=== PATIENT | female | born 1985 | race Caucasian/White ===

== ENCOUNTER 2019-09-10 16:29 | Inpatient (IN) | payer BC ==
[~2019-09-10] VITALS: Ht 154.9 cm; Wt 51.0 kg
--- OUTSIDE RECORDS SUMMARY | 2019-09-10 16:36 | XMS REPORT ---
Author Author Karina Valdes Doctor Organization [facility] Address Unknown Phone Unavailable Care Team Providers Care Slate Handler Name Role Phone Migration, Doctor Unavailable Unavailable PROBLEMS Type Condition ICD9-CM Code [id number] Code Onset Dates Condition S tatus SNOMED Code Problem Seasonal allergic rhinitis due to other allergic trigger J30.89 Active 701144798 Problem Anxiety F41.9 Active 69173400 Problem Well woman exam (no gynecological exam) Z00.00 Active 007567593 Problem Physical exam Z00.00 Active 790625 008 ALLERGIES No Information ENCOUNTERS Encounter Location Date Diagnosis [place] [address] [phone] 03 Jun, 2019 Tinea versicolor B36.0 [place] [address] [address] [place] [id number] [address] [place] [id number] 02 Jun, 2019 Encounter for surveillance o f contraceptive pills Z30.41 and Family planning Z30.09 [place] [address] [address] [place] [id number] [address] [place] [id number] May, [place] [address] [address] [place] [id number] [address] [place] [id number] Nov, Ganglion cyst of dorsum of r ight wrist M67.431 ; Tinea versicolor B36.0 ; Screening for diabetes mellitus Z13.1 ; Screening for lipoid disorders Z13.220 and Screening for thyroid disorder Z13.29 [place] [address] [address] [place] [id number] [place] [phone] Oct, Screening for thyroid disord er Z13.29 ; Screening for lipoid disorders Z13.220 ; Tinea versicolor B36.0 and Screening for diabetes mellitus Z13.1 [place] [address] [address] [place] [id number] [address] [place] [id number] Oct, Ganglion cyst of dorsum of r ight wrist M67.431 ; Tinea versicolor B36.0 ; Screening for diabetes mellitus Z13.1 ; Screening for lipoid disorders Z13.220 and Screening for thyroid disorder Z13.[address] [id number] [address] May, [place] [address] [address] [facility] [id number] [address] [place] [phone] May, Family planning Z30.09 and W ell woman exam with routine gynecological exam Z01.419 [facility] [address] [facility] [id number] [address] [place] [phone] May, [place] [address] [address] [facility] [id number] [address] [place] [phone] Apr, [facility] [address] [facility] [id number] [address] [place] [phone] Mar, Routine gynecological examin ation Z01.419 [facility] [address] [facility] [id number] [address] [place] [phone] Feb, [place] [address] [address] [facility] [id number] [address] [place] [phone] July, Wrist pain, left M25.532 and Anxiety F41.9 [facility] [address] [facility] [id number] [address] [place] [phone] Feb, Other viral agents as the ca use of diseases classified elsewhere B97.89 and Acute upper respiratory infection, unspecified J06.9 [facility] [address] [facility] [id number] [address] [place] [phone] Feb, Well woman exam with routine gynecological exam Z01.419 and Breast cancer screening Z12.39 [facility] [address] [facility] [id number] [address] [place] [phone] Feb, Seasonal allergic rhinitis d ue to other allergic trigger J30.89 [facility] [address] [facility] [id number] [address] [place] [phone] Feb, [facility] [address] [address] Feb, [facility] [address] [id number] Jan, [facility] [address] [id number] Oct, Abdominal bloating R14.0 [place] [address] [id number] Aug, Allergic reaction caused by a drug, initial encounter T78.40XA and Spider bite wound, accidental or unintentional, sequela T63.301S [facility] [address] [id number] Aug, [place] [address] [id number] Aug, [facility] [address] [address] Aug, Insect bite, initial encount er W57.XXXA [place] [address] [id number] July, Nevus of back D22.5 and Bloa ting R14.0 [place] [address] [address] July, Nevus of back D22.5 and [place] foot B35.3 [place] [address] [address] Jun, Bloating R14.0 and Nevus of back D22.5 [place] [address] [id number] May, [place] [address] [id number] Apr, [facility] [address] [id number] [address] [place] [phone] Apr, Physical exam Z00.00 [facility] [address] [id number] [address] [place] [id number] Apr, [facility] [address] [id number] [address] [place] [phone] Mar, Sinusitis J32.9 [facility] [address] [id number] [address] [place] [id number] Jan, Well woman exam (no gynecolo gical exam) Z00.00 [facility] [address] [id number] [address] [place] [id number] 14 Jun, 2014 [facility] [address] [id number] [address] [place] [phone] Jun, [facility] [address] [id number] [address] [place] [phone] May, [facility] [address] [id number] [address] [place] [phone] May, [facility] [address] [id number] [address] [place] [phone] Jan, [facility] [address] [id number] [address] [place] [phone] Jan, [facility] [address] [id number] [address] [place] [phone] Jan, [facility] [address] [id number] [address] [place] [phone] Jan, [facility] [address] [id number] [address] [place] [phone] Jan, [facility] [address] [id number] [address] [place] [phone] July, [facility] [address] [id number] [address] [place] [phone] July, [facility] [address] [id number] [address] [place] [address], [place] [address] May, [facility] [address] [id number] [address] [place] [address], [place] [address] May, [facility] [address] [id number] [address] [place] [address], [place] [address] May, [facility] [address] [id number] [address] [place] [address], [place] [address] May, [facility] [address] [id number] [address] [place] [address], [place] [address] May, [facility] [address] [id number] [address] [place] [address], [place] [address] May, [facility] [address] [id number] [address] [place] [address], [place] [address] 16 Dec, 2012 [facility] [address] [id number] [address] [place] [address], [place] [address] 16 Dec, 2012 [facility] [address] [id number] [address] [place] [address], [place] [address] 16 Dec, 2012 [facility] [address] [id number] [address] [place] [address], [place] [address] 16 Dec, 2012 [facility] [address] [id number] [address] [place] [address], [place] [address] 14 Dec, 2012 [facility] [address] [id number] [address] [place] [address], [place] [address] 23 Nov, 2012 [facility] [address] [id number] [address] [place] [address], [place] [address] Nov, [facility] [address] [id number] [address] [place] [address], [place] [address] 30 Sep, 2012 [facility] [address] [id number] [address] [place] [address], [place] [address] Sep, [facility] [address] [id number] [address] [place] [address], [place] [address] Sep, [facility] [address] [id number] [address] [place] [address], [place] [address] Sep, [facility] [address] [id number] [address] [place] [address], [place] [address] Jan, [facility] [address] [id number] [address] [place] [address], [place] [address] Jan, [facility] [address] [id number] [address] [place] [address], [place] [address] Dec, [facility] [address] [id number] [address] [place] [address], [place] [address] Dec, [facility] [address] [id number] [address] [place] [address], [place] [address] Dec, [facility] [address] [id number] [address] [place] [address], [place] [address] Oct, [facility] [address] [id number] [address] [place] [address], [place] [address] Aug, [facility] [address] [id number] [address] [place] [address], [place] [address] July, [facility] [address] [id number] [address] [place] [address], [place] [address] July, [facility] [address] [id number] [address] [place] [address], [place] [address] Mar, [facility] [address] [id number] [address] [place] [address], [place] [address] Jan, [facility] [address] [id number] [address] [place] [address], [place] [address] Dec, [facility] [address] [id number] [address] [place] [address], [place] [address] Dec, [facility] [address] [id number] [address] [place] [address], [place] [address] Dec, [facility] [address] [facility] [id number] [address] [place] [phone] Oct, [facility] [address] [facility] [id number] [address] [place] [phone] Feb, [facility] [address] [facility] [id number] [address] [place] [phone] Feb, [facility] [address] [facility] [id number] [address] [place] [phone] Jan, IMMUNIZATIONS No Known Immunizations SOCIAL HISTORY Never Assessed REASON FOR VISIT PLAN OF CARE VITAL SIGNS MEDICATIONS Unknown Medications RESULTS No Results PROCEDURES No Known procedures INSTRUCTIONS MEDICATIONS ADMINISTERED No Known Medications MEDICAL (GENERAL) HISTORY Type Description Date Medical History IBS Surgical History breast augmentation Surgical History right wrist cyst removed 11/2018 Hospitalization History surgeries
--- OUTSIDE RECORDS SUMMARY | 2019-09-10 16:36 | XMS REPORT ---
Author Author [employer] mannequin wig [employer] [facility] [employer] Address [address] [address] Care Team Providers Care Sales Facilitator Name Role Phone MARIELENA GRANT Unavailable Unavailable ARACELI SANDRA Unavailable Unavailable YESENIA GRANTE Unavailable YESENIA GRANTE Unavailable JUANITA MARIELENA Unavailable APRIL SALMON Unavailable YESENIA GRANTE Unavailable YESENIA LordE Unavailable ELENABEN CORRALESCY Unavailable ELENA, GATITO Unavailable Migration, Doctor Unavailable Unavailable Migration, Doctor Unavailable Unavailable Migration, Doctor Unavailable Unavailable Migration, Doctor Unavailable Unavailable Migration, Doctor Unavailable Unavailable Migration, Doctor Unavailable Unavailable Migration, Doctor Unavailable Unavailable Migration, Doctor Unavailable Unavailable Migration, Doctor Unavailable Unavailable KEL CORTES Unavailable Migration, Doctor Unavailable Unavailable zzHEIMLISETH CHRISTINA Unavailable zzHEIMAN, CHRISTINA Unavailable YESENIA LordE Unavailable Unavailable CAROLE TAM Unavailable zzSANCHEZ, LORETO Unavailable BALWINDER DELVALLE Unavailable zzSANCHEZ, LORETO Unavailable zzSANCHEZ, LORETO Unavailable KARINA SANTILLAN Unavailable Unavailable Migration, Doctor Unavailable Unavailable Migration, Doctor Unavailable Unavailable Migration, Doctor Unavailable Unavailable Migration, Doctor Unavailable Unavailable Unavailable Unavailable Unavailable Unavailable Allergies The data below is from unstructured sources Substance Reaction Event Type N.K.D.A. Info Not Available Non Drug Allergy No Information Medications Medication Ingredient Drug Dose Dates Status Sig Sig Care Class(es) (Normalized) (Original) Provid er {21 Ethinyl Progestin, 06-06-19 Active take 0.15-30 Kurvelo no (Ethinyl Estradiol / Estrogen, 19 tablets by 0.15-30 na me Estradiol Levonorgest Progestin-c mouth once MG-MCG 0.03 MG / rel ontaining daily Orally Once Levonorgest Translation Intrauterin a day 1 rel 0.15 MG s: [ e Device tablet 24h Oral Kurvelo May, Tablet) / 7 0.15-30 12 months (Inert MG-MCG] Active Ingredients 1 MG Oral Tablet) } Pack [Esvinvelo] (1 source.) ketoconazol Ketoconazol Azole 20 09-10-19 Active no Ket oconazole no e 20 mg/ml e Antifungal mg/mL 13 information 2 % apply 1 name topical Translation sonia by cream (1 s: [ Topical source.) Ketoconazol route 1 time e 2 %] per day for 2 weeks Sep, Active no Nystatin-Tr no 09-25-19 Active no Nystatin-Tri no information iamcinolone information 13 information amcino lone name (1 source.) 100,000-0.1 100,000-0.1 unit/g-% unit/g-% 1 sonia by Topical route 2 times per day for 14 day(s) Sep, Active sulfamethox Sulfamethox Dihydrofola 12-11-19 Active take 1 Bactr im DS no azole 800 azole / te 12 tablet by 800-160 mg 1 nam e mg / Trimethopri Reductase mouth twice tablet by trimethopri m Inhibitor daily Oral route 2 m 160 mg Translation Antibacteri times per oral tablet s: [ al, day for 3 (1 source.) Bactrim DS Sulfonamide day(s) 800-160 mg] Antimicrobi Dec, 2011 al Active Problems No Information Procedures The data below is from unstructured sources Procedure Coding System Code Date Office Visit, Est Pt., Level 3 CPT-4 65245 Mar 15, 2015 Procedure Date Ordered R elated Diagnosis Body Site Office Visit, Est Pt., Level 3 Mar 01, 6 Immunizations The data below is from unstructured sources No Known Immunizations No Known Immunizations No Known Immunizations No Known Immunizations No Known Immunizations No Known Immunizations No Known Immunizations No Known Immunizations No Known Immunizations No Known Immunizations No Known Immunizations No Known Immunizations No Known Immunizations No Known Immunizations No Known Immunizations No Known Immunizations No Known Immunizations No Known Immunizations No Known Immunizations No Known Immunizations No Known Immunizations No Known Immunizations No Known Immunizations No Known Immunizations No Known Immunizations No Known Immunizations No Known Immunizations No Known Immunizations No Known Immunizations No Known Immunizations No Known Immunizations No Known Immunizations No Known Immunizations No Known Immunizations No Known Immunizations No Known Immunizations No Known Immunizations No Known Immunizations No Known Immunizations No Known Immunizations No Known Immunizations No Known Immunizations No Known Immunizations No Known Immunizations No Known Immunizations No Known Immunizations No Known Immunizations Results Test Name Value Interpretation Reference Range Date Time Fa cility (Normalized) (Normalized) (Medline Reference) laboratory on 2018-10-28 Albumin 4.0 g/dL (N) 3.4 - 5.4 g/dL [facility] [Mass/Vol] [facility] () Albumin/Globulin 1.4 {ratio} (N) 1 - 2.5 {ratio} [facility] [Mass ratio] [facility] () ALP [Catalytic 47 U/L (N) 44 - 147 U/L [facility] Health activity/Vol] [facility] () ALT [Catalytic 14 U/L (N) 4 - 40 U/L [facility] activity[facility]Vol] [facility] () AST [Catalytic 15 U/L (N) 10 - 34 U/L [facility] Health activity/Vol] [facility] () Bilirubin 0.8 mg/dL (N) 0.1 - 1.2 mg/dL [facility] [Mass/Vol] [facility] ([id number]) Calcium 9.2 mg/dL (N) 8.5 - 10.2 mg/dL [facility] [Mass/Vol] [facility] (00683) Chloride 107 mmol/L (N) 95 - 106 mmol/L [facility] [Moles/Vol] [facility] (38924) Cholesterol 190 mg/dL (N) 180 - 200 mg/dL [facility] [Mass/Vol] [facility] (73462) Cholesterol in 78 mg/dL (N) [facility] HDL [Mass/Vol] [facility] (78466) Cholesterol in 98 mg/dL (N) 0 - 100 mg/dL [facility] LDL [Mass/Vol] [facility] (82207) Cholesterol non 112 mg/dL (N) [facility] HDL [Mass/Vol] [facility] (96578) Cholesterol.tota 2.4 {ratio} (N) [facility] l/Cholesterol in [facility] HDL [Mass ratio] [facility] (96107) CO2 [Moles/Vol] 27 mmol/L (N) 23 - 29 mmol/L [facility] (10427) Creatinine 0.91 mg/dL (N) [facility] [Mass/Vol] [facility] (10676) Free T4 1.2 ng/dL (N) 0.9 - 2.2 ng/dL [facility] [Mass/Vol] [facility] (54093) GFR/1.73 sq M 96 (N) 90 - 120 On license of [facility] predicted among mL/min/{1.73_m2} mL/min/{1.73_m2} [facility] blacks MDRD [facility] (S/P/Bld) [Vol (95467) rate/Area] GFR/1.73 sq 83 (N) 90 - 120 [facility] M.predicted MDRD mL/min/{1.73_m2} mL/min/{1.73_m2} [facility] (S/P/Bld) [Vol [facility] rate/Area] (30235) Globulin (S) 2.9 g/dL (N) 2 - 3.5 g/dL [facility] ealth [Mass/Vol] [facility] (90566) Glucose 84 mg/dL (N) 60 - 125 mg/dL [facility] [Mass/Vol] [facility] (25200) Potassium 4.3 mmol/L (N) 3.7 - 5.2 mmol/L [facility] [Moles/Vol] [facility] (16224) Protein 6.9 g/dL (N) 6.4 - 8.3 g/dL [facility] [Mass/Vol] [facility] (35009) Sodium 140 mmol/L (N) 135 - 145 mmol/L [facility] [Moles/Vol] [facility] (58576) Triglyceride 57 mg/dL (N) 0 - 150 mg/dL [facility] [Mass/Vol] [facility] (16726) TSH Qn 1.91 m[IU]/L (N) 0.4 - 4 m[IU]/L [facility] (09676) Urea nitrogen 17 mg/dL (N) 7 - 20 mg/dL [facility] [Mass/Vol] [facility] (23309) Urea NOT APPLICABLE (no code) [facility] nitrogen/Creatin [facility] [Mass ratio] [facility] (06613) not yet categorized on 2018-05-18 CLINICAL no information (N) [facility] INFORMATION: [facility] (43621) COMMENT no information (no code) [facility] (69271) Date of previous no information (N) [facility] biopsy [facility] (47986) Date of previous no information (N) [facility] PAP smear [facility] (32330) Last menstrual no information (N) [facility] period start [facility] (11841) laboratory on 2018-05-18 Drum Reel Cutter Cyto no information (N) [facility] stain Nom [facility] (Cvx/Vag) [ID] [facility] ([id number]) Microscopic no information (no code) [facility] observation Cyto [facility] stain Nom (Cvx) [facility] (53978) Pathologist Cyto no information (N) [facility] stain Nom [facility] (Cvx/Vag) [ID] [facility] ([id number]) Specimen source Endocervix (N) [facility] Cyto stain Nom [facility] (Cvx/Vag) [facility] (75974) Statement of no information (N) [facility] adequacy Cyto [facility] stain (Cvx/Vag) [facility] [Interp] ([id number]) other on 2017-04-01 Exp date Negative (no code) no information Exp date 05/07/2018 (no code) [facility] (07231) Exp date +~05/2018 (no code) [facility] (38580) Lot # [id number] (no code) [facility] (36781) Lot # [id number] (no code) [facility] (20109) imm/path on 2017-04-01 Bacteria SEE NOTE (no code) [facility] identified Aer [facility] cx Nom (Genital [facility] specimen) ([id number]) imm/path on 2016-03-16 HPV Negative (no code) 03-16-2016 Not Available 16+18+31+33+35+3 09:49-0500 ([id number]) 9+45+51+52+56+58 +59+68 DNA Probe+sig amp Ql (Cvx) other on 2016-03-14 [employer] Cyto Comment (no code) 03-14-2016 Not Availa ble stain Nom 12:44-0500 ([id number]) (Cvx/Vag) [ID] Diagnosis ICD Comment (no code) 03-14-2016 Not Availabl e code 12:44-0500 ([id number]) [Identifier] Microscopic . (no code) 03-14-2016 Not Available observation 12:44-0500 ([id number]) Other stain Nom (Unsp spec) Note: Comment (no code) 03-14-2016 Not Available 12:44-0500 (06138) Statement of Comment (no code) 03-14-2016 Not Available adequacy Cyto 12:44-0500 ([id number]) stain (Cvx/Vag) [Interp] no information Comment (no code) 03-14-2016 Not Availab le 12:44-0500 (37502) imm/path on 2016-03-14 Pathologist Cyto Comment (no code) 03-14-2016 Not Avail able stain Nom 12:44-0500 ([id number]) (Cvx/Vag) [ID] Pathology report Comment (A) 03-14-2016 Not Avail able final diagnosis 12:44-0500 ([id number]) Narrative Recommended Comment (A) 03-14-2016 Not Available follow-up Cyto 12:44-0500 ([id number]) stain Nom (Cvx/Vag) Vital Signs Vital Sign Value Interpretation Reference Date Time Care Prov ider Facility (Normalized) (Normalized) Range Body height 154.94 cm (no code) cm 09-09-2012 Doctor Co [facility]munity 11: [facility] ([id number]) Body 97.4 [degF] (no code) 97.8 - 99.0 09-09-2012 Doctor [facility] temperature [degF] 11: [facility] (57272) Body weight 51.85 kg (no code) kg 09-09-2012 Doctor Com munity 11: [facility] ([id number]) Interventions No Information Plan of Treatment The data below is from unstructured sources Activity Details Follow Up 1 Year, prn Reason: Activity Details Follow Up prn Reason: Activity Details Follow Up 3 Months, prn Reason: Activity Details Follow Up 1 Year, sooner prn Reason: Goals No Information Social History No Information Functional Status No Information Mental Status No Information Encounters Encounter Normalized Encounter Encounter Diagnosis Care Provi love Organization Date Type 06-10-2019 [facility] Encounter for CAROLE MENDEZ ( no [facility] surveillance of phone) (no phone) contraceptive pills 04-01-2017 Patient encounter no information no name no or ganization name 06-10-2019 Patient encounter no information KARINA SANTILLAN (no [facility] (no phone) 11-16-2018 Patient encounter no information no name no or ganization name procedure 10-28-2018 Patient encounter no information no name no or ganization name procedure 10-28-2018 Patient encounter no information no name no or ganization name procedure 10-27-2018 Patient encounter no information no name no or ganization name procedure 05-18-2018 Patient encounter no information no name no or ganization name procedure 06-11-2019 Telephone encounter Pityriasis versicolor CAROLE NGUYEN (no [facility] phone) (no phone) no information Encounter for no name no organization name gynecological examination (general) (routine) without abnormal findings Medical Equipment No Information Payers No Information History general Narrative - Reported Note Type Note Facility History general Narrative - Reported Type Medical IBS History Surgical breast augmentation History Surgical right wrist cyst removed 11/2018 History Hospitaliz surgeries ation History [facility] ([id number]) Summary Purpose eClinicalWorks SubmissioneClinicalWorks Submission Additional Source Comments This clinical document has been generated using Page[employer] software that has been certified by the Office of the National Coordinator for Health Information Technology (ONC 15.99.04.3023.Diam.31.00.0.807924) and the National Committee for Account Services Representative (NCQA, as an eMeasure certified technology). FOR RECORDS PERTAINING TO PATIENTS WHO ARE OR HAVE BEEN ENROLLED IN A CHEMICAL D EPENDENCY/SUBSTANCE ABUSE PROGRAM, SOME INFORMATION MAY BE OMITTED. This clinica l summary was aggregated from multiple sources. Caution should be exercised in using it in the provision of clinical care. This summary normalizes information from multiple sources, and as a consequence, information in this document may ma terially change the coding, format and clinical context of patient data. In ronit tion, data may be omitted in some cases. CLINICAL DECISIONS SHOULD BE BASED ON T HE PRIMARY CLINICAL RECORDS. [employer] provides no warranty or guara ntee of the accuracy or completeness of information in this document.The followi ng information is based on time limited clinical information UNRECOGNIZED CONTENT PROVIDED BELOW FOR UNRECOGNIZED SECTION MEDICAL (GENERAL) HISTORY Type Description Date Medical History IBS Surgical History breast augmentation Hospitalization History surgeries UNRECOGNIZED CONTENT PROVIDED BELOW FOR UNRECOGNIZED SECTION REASON FOR VISIT [id number] return c all
--- OUTSIDE RECORDS SUMMARY | 2019-09-10 16:36 | XMS REPORT ---
Author Author Karina Valdes Doctor Organization [facility] Address Unknown Phone Unavailable Care Team Providers Care Medical Technologist Name Role Phone Migration, Doctor Unavailable Unavailable PROBLEMS Type Condition ICD9-CM Code [id number] Code Onset Dates Condition S tatus SNOMED Code Problem Seasonal allergic rhinitis due to other allergic trigger J30.89 Active 659525462 Problem Anxiety F41.9 Active 44176379 Problem Well woman exam (no gynecological exam) Z00.00 Active 003341386 Problem Physical exam Z00.00 Active 555730 008 ALLERGIES No Information ENCOUNTERS Encounter Location Date Diagnosis [place] [address] [address] 03 Jun, 2019 Tinea versicolor B36.0 [place] [address] [place] [id number] [address] [place] [address] 02 Jun, 2019 Encounter for surveillance o f contraceptive pills Z30.41 and Family planning Z30.09 [place] [address] [place] [id number] [address] [place] [address] May, [place] [address] [place] [id number] [address] [place] [address] Nov, Ganglion cyst of dorsum of r ight wrist M67.431 ; Tinea versicolor B36.0 ; Screening for diabetes mellitus Z13.1 ; Screening for lipoid disorders Z13.220 and Screening for thyroid disorder Z13.29 [place] [address] [place] [id number] [address] [place] [address] Oct, Screening for thyroid disord er Z13.29 ; Screening for lipoid disorders Z13.220 ; Tinea versicolor B36.0 and Screening for diabetes mellitus Z13.1 [place] [address] [place] [id number] [address] [place] [address] Oct, Ganglion cyst of dorsum of r ight wrist M67.431 ; Tinea versicolor B36.0 ; Screening for diabetes mellitus Z13.1 ; Screening for lipoid disorders Z13.220 and Screening for thyroid disorder Z13.[address] [place] [address] May, [place] [address] [facility] [id number] [address] [place] [address] May, Family planning Z30.09 and W ell woman exam with routine gynecological exam Z01.419 [facility] [address] [facility] [id number] [address] [place] [address] May, [place] [address] [facility] [id number] [address] [place] [address] Apr, [facility] [address] [facility] [id number] [address] [place] [address] Mar, Routine gynecological examin ation Z01.419 [facility] [address] [facility] [id number] [address] [place] [address] Feb, [place] [address] [facility] [id number] [address] [place] [address] July, Wrist pain, left M25.532 and Anxiety F41.9 [facility] [address] [facility] [id number] [address] [place] [address] Feb, Other viral agents as the ca use of diseases classified elsewhere B97.89 and Acute upper respiratory infection, unspecified J06.9 [facility] [address] [facility] [id number] [address] [place] [address] Feb, Well woman exam with routine gynecological exam Z01.419 and Breast cancer screening Z12.39 [facility] [address] [facility] [id number] [address] [place] [address] Feb, Seasonal allergic rhinitis d ue to other allergic trigger J30.89 [facility] [address] [facility] [id number] [address] [place] [address] Feb, [facility] [address] [address] Feb, [facility] [address] [address] Jan, [facility] [address] [address] Oct, Abdominal bloating R14.0 [place] [address] [address] Aug, Allergic reaction caused by a drug, initial encounter T78.40XA and Spider bite wound, accidental or unintentional, sequela T63.301S [facility] [address] [address] Aug, [place] [address] [address] Aug, [facility] [address] [address] Aug, Insect bite, initial encount er W57.XXXA [place] [address] [address] July, Nevus of back D22.5 and Bloa ting R14.0 [place] [address] [address] July, Nevus of back D22.5 and Athl etes foot B35.3 [place] [address] [address] Jun, Bloating R14.0 and Nevus of back D22.5 [place] [address] [address] May, [place] [address] [address] Apr, [facility] [address] [id number] [address] [place] [address] Apr, Physical exam Z00.00 [facility] [address] [id number] [address] [place] [address] Apr, [facility] [address] [id number] [address] [place] [address] Mar, Sinusitis J32.9 [facility] [address] [id number] [address] [place] [address] Jan, Well woman exam (no gynecolo gical exam) Z00.00 [facility] [address] [id number] [address] [place] [address] 14 Jun, 2014 [facility] [address] [id number] [address] [place] [address] Jun, [facility] [address] [id number] [address] [place] [address] May, [facility] [address] [id number] [address] [place] [address] May, [facility] [address] [id number] [address] [place] [address] Jan, [facility] [address] [id number] [address] [place] [address] Jan, [facility] [address] [id number] [address] [place] [address] Jan, [facility] [address] [id number] [address] [place] [address] Jan, [facility] [address] [id number] [address] [place] [address] Jan, [facility] [address] [id number] [address] [place] [address] July, [facility] [address] [id number] [address] [place] [address] July, [facility] [address] [id number] [address] [place] [address], [place] [address] May, [facility] [address] [id number] [address] [place] [address], [place] [address] May, [facility] [address] [id number] [address] [place] [address], [place] [address] May, [facility] [address] [id number] [address] [place] [address], [place] [address] May, [facility] [address] [id number] [address] [place] [address], [place] [address] May, [facility] [address] [id number] [address] [place] [address], [place] [address] May, [facility] [address] [id number] [address] [place] [address], [place] [address] 16 Dec, 2012 [facility] [address] [id number] [address] [place] [address], [place] [address] 16 Dec, 2012 [facility] [address] [id number] [address] [place] [address], [place] [address] 16 Dec, 2012 [facility] [address] [id number] [address] [place] [address], [place] [address] 16 Dec, 2012 [facility] [address] [id number] [address] [place] [address], [place] [address] 14 Dec, 2012 [facility] [address] [id number] [address] [place] [address], [place] [address] 23 Nov, 2012 [facility] [address] [id number] [address] [place] [address], [place] [address] Nov, [facility] [address] [id number] [address] [place] [address], [place] [address] 30 Sep, 2012 [facility] [address] [id number] [address] [place] [address], [place] [address] Sep, [facility] [address] [id number] [address] [place] [address], [place] [address] Sep, [facility] [address] [id number] [address] [place] [address], [place] [address] Sep, [facility] [address] [id number] [address] [place] [address], [place] [address] Jan, [facility] [address] [id number] [address] [place] [address], [place] [address] Jan, [facility] [address] [id number] [address] [place] [address], [place] [address] Dec, [facility] [address] [id number] [address] [place] [address], [place] [address] Dec, [facility] [address] [id number] [address] [place] [address], [place] [address] Dec, [facility] [address] [id number] [address] [place] [address], [place] [address] Oct, [facility] [address] [id number] [address] [place] [address], [place] [address] Aug, [facility] [address] [id number] [address] [place] [address], [place] [address] July, [facility] [address] [id number] [address] [place] [address], [place] [address] July, [facility] [address] [id number] [address] [place] [address], [place] [address] Mar, [facility] [address] [id number] [address] [place] [address], [place] [address] Jan, [facility] [address] [id number] [address] [place] [address], [place] [address] Dec, [facility] [address] [id number] [address] [place] [address], [place] [address] Dec, [facility] [address] [id number] [address] [place] [address], [place] [address] Dec, [facility] [address] [id number] [address] [place] [address] Oct, [facility] [address] [facility] [id number] [address] [place] [address] Feb, [facility] [address] [facility] [id number] [address] [place] [address] Feb, [facility] [address] [facility] [id number] [address] [place] [address] Jan, IMMUNIZATIONS No Known Immunizations SOCIAL HISTORY Never Assessed REASON FOR VISIT PLAN OF CARE VITAL SIGNS Height 61 in 2012-09-09 Weight 114.31 lbs 2012-09-09 Temperature 97.4 degrees Fahrenheit 2012-09-09 Heart Rate 82 bpm 2012-09-09 Respiratory Rate 16 2012-09-09 Blood pressure systolic 120 mmHg 2012-09-09 Blood pressure diastolic 80 mmHg 2012-09-09 MEDICATIONS Unknown Medications RESULTS No Results PROCEDURES No Known procedures INSTRUCTIONS MEDICATIONS ADMINISTERED No Known Medications MEDICAL (GENERAL) HISTORY Type Description Date Medical History IBS Surgical History breast augmentation Surgical History right wrist cyst removed 11/2018 Hospitalization History surgeries
--- OUTSIDE RECORDS SUMMARY | 2019-09-10 16:36 | XMS REPORT ---
Author Author Karina Sage Organization [facility] Address [address] [place] [address] Care Team Providers Care Photo Booth Operator Name Role Phone LORETO Sage Unavailable PROBLEMS Type Condition ICD9-CM Code VIP80-BS Code Onset Dates Condition S tatus SNOMED Code Problem Seasonal allergic rhinitis due to other allergic trigger J30.89 Active 337393849 Problem Anxiety F41.9 Active 23045706 Problem Well woman exam (no gynecological exam) Z00.00 Active 320102665 Problem Physical exam Z00.00 Active 562518 008 ALLERGIES No Information ENCOUNTERS Encounter Location Date Diagnosis [address] [address] Jun, [address] [address] May, [address] [address] Nov, Ganglion cyst of dorsum of right wrist M 67.431 ; Tinea versicolor B36.0 ; Screening for diabetes mellitus Z13.1 ; Screening for lipoid disorders Z13.220 and Screening for thyroid disorder Z13.[address] [address] Oct, Screening for thyroid disorder Z13.29 ; Screening for lipoid disorders Z13.220 ; Tinea versicolor B36.0 and Screening for diabetes mellitus Z13.1 [place] [address] [address] Oct, Ganglion cyst of dorsum of right wrist M 67.431 ; Tinea versicolor B36.0 ; Screening for diabetes mellitus Z13.1 ; Screening for lipoid disorders Z13.220 and Screening for thyroid disorder Z13.29 [facility] [address] [place] [address] May, [place] [address] [address] May, Family planning Z30.09 and Well woman ex am with routine gynecological exam Z01.419 [place] [address] [address] 05 May, 2018 [place] [address] [address] Apr, [place] [address] [address] Mar, Routine gynecological examination Z01.41 9 [place] [address] [address] Feb, [place] [address] [address] July, Wrist pain, left M25.532 and Anxiety F41 .[address] [facility] [address] [place] [id number] [address] [place] [address] Feb, Other viral agents as the ca use of diseases classified elsewhere B97.89 and Acute upper respiratory infection, unspecified J06.9 [place] [address] [place] [id number] [place] [address] Feb, Well woman exam with routine gynecologic al exam Z01.419 and Breast cancer screening Z12.39 [facility] [address] [facility] [id number] [address] [place] [address] Feb, Seasonal allergic rhinitis d ue to other allergic trigger J30.89 [place] [address] [address] Feb, [facility] [address] [facility] [id number] [address] [place] [address] Feb, [place] [address] [address] Jan, [facility] [address] [address] Oct, Abdominal bloating R14.0 [place] [address] [address] Aug, Allergic reaction caused by a drug, init ial encounter T78.40XA and Spider bite wound, accidental or unintentional, sequela T63.301S [facility] [address] [facility] [id number] [address] [address] Aug, [place] [address] [address] Aug, [facility] [address] [facility] [id number] [place] [address] Aug, Insect bite, initial encount er W57.XXXA [place] [address] [address] July, Nevus of back D22.5 and Bloating R14.0 [place] [address] [address] July, Nevus of back D22.5 and Athletes foot B3 5.3 [place] [address] [address] Jun, Bloating R14.0 and Nevus of back D22.5 [place] [address] [address] May, [place] [address] [address] Apr, [place] [address] [address] Apr, Physical exam Z00.00 [place] [address] [address] 17 Apr, 2015 [place] [address] [place] [address] 06 Mar, 2015 Sinusitis J32.9 [facility] [address] [place] [id number] [place] [address] Jan, Well woman exam (no gynecological exam) Z00.00 [facility] [address] [place] [id number] [place] [address] 14 Jun, 2014 [facility] [address] [address] 13 Jun, 2014 [facility] [address] [place] [id number] [place] [address] May, [facility] [address] [place] [id number] [place] [address] May, [facility] [address] [place] [id number] [place] [address] Jan, [facility] [address] [place] [id number] [place] [address] Jan, [facility] [address] [place] [id number] [place] [address] Jan, [facility] [address] [place] [id number] [place] [address] Jan, [facility] [address] [place] [id number] [place] [address] Jan, [facility] [address] [place] [id number] [place] [address] July, [facility] [address] [place] [id number] [place] [address] July, [facility] [address] [place] [id number] [place] [address] May, [facility] [address] [place] [id number] [place] [address] May, [facility] [address] [place] [id number] [place] [address] May, [facility] [address] [place] [id number] [place] [address] May, [facility] [address] [facility] [id number] [place] [address] May, [facility] [address] [id number] [place] [address] May, [facility] [address] [id number] [place] [address] Dec, [facility] [address] [id number] [place] [address] 16 Dec, 2012 [facility] [address] [id number] [place] [address] Dec, [facility] [address] [id number] [place] [address] Dec, [facility] [address] [id number] [place] [address] Dec, [facility] [address] [id number] [place] [address] Nov, [facility] [address] [id number] [place] [address] Nov, [facility] [address] [id number] [place] [address] 30 Sep, 2012 [facility] [address] [id number] [place] [address] Sep, [facility] [address] [id number] [place] [address] Sep, [facility] [address] [id number] [place] [address] Sep, [facility] [address] [id number] [place] [address] Jan, [facility] [address] [id number] [place] [address] Jan, [facility] [address] [id number] [place] [address] Dec, [facility] [address] [place] [id number] [place] [address] Dec, [facility] [address] [place] [id number] [place] [address] Dec, [facility] [address] [place] [id number] [place] [address] Oct, [facility] [address] [place] [id number] [place] [address] Aug, [facility] [address] [place] [id number] [place] [address] July, [facility] [address] [place] [id number] [place] [address] July, [facility] [address] [place] [id number] [place] [address] Mar, [facility] [address] [place] [id number] [place] [address] Jan, [facility] [address] [place] [id number] [place] [address] Dec, [facility] [address] [place] [id number] [place] [address] Dec, [facility] [address] [place] [id number] [place] [address] Dec, [facility] [address] [place] [id number] [place] [address] Oct, [facility] [address] [place] [id number] [place] [address] Feb, [facility] [address] [place] [id number] [place] [address] Feb, [facility] [address] [place] [id number] [place] [address] Jan, IMMUNIZATIONS No Known Immunizations SOCIAL HISTORY Never Assessed REASON FOR VISIT PLAN OF CARE VITAL SIGNS MEDICATIONS Unknown Medications RESULTS No Results PROCEDURES Procedure Date Ordered Result Body Site COMPLETE CBC W/AUTO DIFF WBC May 27, 2013 MYCOPLASMA ANTIBODY May 27, 2013 ASSAY THYROID STIM HORMONE May 27, 2013 LIPID PANEL May 27, 2013 COMPREHEN METABOLIC PANEL May 27, 2013 VENIPUNCT, ROUTINE* May 27, 2013 INSTRUCTIONS MEDICATIONS ADMINISTERED No Known Medications MEDICAL (GENERAL) HISTORY Type Description Date Medical History IBS Surgical History breast augmentation Hospitalization History surgeries
--- OUTSIDE RECORDS SUMMARY | 2019-09-10 16:36 | XMS REPORT ---
Author Author Karina Valdes Doctor Organization [facility] Address Unknown Phone Unavailable Care Team Providers Care Math And Science Division Chair Name Role Phone Migration, Doctor Unavailable Unavailable PROBLEMS Type Condition ICD9-CM Code NOR74-TG Code Onset Dates Condition S tatus SNOMED Code Problem Seasonal allergic rhinitis due to other allergic trigger J30.89 Active 559856059 Problem Anxiety F41.9 Active 24726571 Problem Well woman exam (no gynecological exam) Z00.00 Active 367846659 Problem Physical exam Z00.00 Active 269920 008 ALLERGIES No Information ENCOUNTERS Encounter Location Date Diagnosis [place] [address] [address] 03 Jun, 2019 Tinea versicolor B36.0 [place] [address] [place] [id number] [address] [place] [address] 02 Jun, 2019 Encounter for surveillance o f contraceptive pills Z30.41 and Family planning Z30.09 [place] [address] [place] [id number] [address] [place] [address] May, [place] [address] [place] [id number] [address] [place] [address] Nov, Ganglion cyst of dorsum of r ight wrist M67.431 ; Tinea versicolor B36.0 ; Screening for diabetes mellitus Z13.1 ; Screening for lipoid disorders Z13.220 and Screening for thyroid disorder Z13.29 [place] [address] [place] [id number] [address] [place] [address] Oct, Screening for thyroid disord er Z13.29 ; Screening for lipoid disorders Z13.220 ; Tinea versicolor B36.0 and Screening for diabetes mellitus Z13.1 [place] [address] [place] [id number] [address] [place] [address] Oct, Ganglion cyst of dorsum of r ight wrist M67.431 ; Tinea versicolor B36.0 ; Screening for diabetes mellitus Z13.1 ; Screening for lipoid disorders Z13.220 and Screening for thyroid disorder Z13.[address] [place] [address] May, [place] [address] [address] [facility] [id number] [address] [place] [address] May, Family planning Z30.09 and W ell woman exam with routine gynecological exam Z01.419 [facility] [address] [facility] [id number] [address] [place] [address] May, [place] [address] [address] [facility] [id number] [address] [place] [address] Apr, [facility] [address] [facility] [id number] [address] [place] [address] Mar, Routine gynecological examin ation Z01.419 [facility] [address] [facility] [id number] [address] [place] [address] Feb, [place] [address] [address] [facility] [id number] [address] [place] [address] July, Wrist pain, left M25.532 and Anxiety F41.9 [facility] [address] [facility] [id number] [address] [place] [address] Feb, Other viral agents as the ca use of diseases classified elsewhere B97.89 and Acute upper respiratory infection, unspecified J06.9 [facility] [address] [facility] [id number] [address] [place] [address] Feb, Well woman exam with routine gynecological exam Z01.419 and Breast cancer screening Z12.39 [facility] [address] [facility] [id number] [address] [place] [address] Feb, Seasonal allergic rhinitis d ue to other allergic trigger J30.89 [facility] [address] [facility] [id number] [address] [place] [address] Feb, [facility] [address] [address] Feb, [facility] [address] [address] Jan, [facility] [address] [address] Oct, Abdominal bloating R14.0 [place] [address] [address] Aug, Allergic reaction caused by a drug, initial encounter T78.40XA and Spider bite wound, accidental or unintentional, sequela T63.301S [facility] [address] [address] Aug, [place] [address] [address] Aug, [facility] [address] [address] Aug, Insect bite, initial encount er W57.XXXA [place] [address] [address] July, Nevus of back D22.5 and Bloa ting R14.0 [place] [address] [address] July, Nevus of back D22.5 and Athl etes foot B35.3 [place] [address] [address] Jun, Bloating R14.0 and Nevus of back D22.5 [place] [address] [address] May, [place] [address] [address] Apr, [facility] [address] [id number] [address] [place] [address] Apr, Physical exam Z00.00 [facility] [address] [id number] [address] [place] [address] Apr, [facility] [address] [id number] [address] [place] [phone] Mar, Sinusitis J32.9 [facility] [address] [id number] [address] [place] [address] Jan, Well woman exam (no gynecolo gical exam) Z00.00 [facility] [address] [id number] [address] [place] [phone] 14 Jun, 2014 [facility] [address] [id number] [address] [place] [phone] Jun, [facility] [address] [id number] [address] [place] [address] May, [facility] [address] [id number] [address] [place] [address] May, [facility] [address] [id number] [address] [place] [address] Jan, [facility] [address] [id number] [address] [place] [address] Jan, [facility] [address] [id number] [address] [place] [address] Jan, [facility] [address] [id number] [address] [place] [address] Jan, [facility] [address] [id number] [address] [place] [phone] Jan, [facility] [address] [id number] [address] [place] [address] July, [facility] [address] [id number] [address] [place] [address] July, [facility] [address] [id number] [address] [place] [address], [place] [id number] May, [facility] [address] [id number] [address] [place] [address], [place] [id number] May, [facility] [address] [id number] [address] [place] [address], [place] [id number] May, [facility] [address] [id number] [address] [place] [address], [place] [id number] May, [facility] [address] [id number] [address] [place] [address], [place] [id number] May, [facility] [address] [id number] [address] [place] [address], [place] [id number] May, [facility] [address] [id number] [address] [place] [address], [place] [id number] 16 Dec, 2012 [facility] [address] [id number] [address] [place] [address], [place] [id number] 16 Dec, 2012 [facility] [address] [id number] [address] [place] [address], [place] [id number] 16 Dec, 2012 [facility] [address] [id number] [address] [place] [address], [place] [id number] 16 Dec, 2012 [facility] [address] [id number] [address] [place] [address], [place] [id number] 14 Dec, 2012 [facility] [address] [id number] [address] [place] [address], [place] [id number] 23 Nov, 2012 [facility] [address] [id number] [address] [place] [address], [place] [id number] Nov, [facility] [address] [id number] [address] [place] [address], [place] [id number] 30 Sep, 2012 [facility] [address] [id number] [address] [place] [address], [place] [id number] Sep, [facility] [address] [id number] [address] [place] [address], [place] [id number] Sep, [facility] [address] [id number] [address] [place] [address], [place] [id number] Sep, [facility] [address] [id number] [address] [place] [address], [place] [id number] Jan, [facility] [address] [id number] [address] [place] [address], [place] [id number] Jan, [facility] [address] [id number] [address] [place] [address], [place] [id number] Dec, [facility] [address] [id number] [address] [place] [address], [place] [id number] Dec, [facility] [address] [id number] [address] [place] [address], [place] [id number] Dec, [facility] [address] [id number] [address] [place] [address], [place] [id number] Oct, [facility] [address] [id number] [address] [place] [address], [place] [id number] Aug, [facility] [address] [id number] [address] [place] [address], [place] [id number] July, [facility] [address] [id number] [address] [place] [address], [place] [id number] July, [facility] [address] [id number] [address] [place] [address], [place] [id number] Mar, [facility] [address] [id number] [address] [place] [address], [place] [id number] Jan, [facility] [address] [id number] [address] [place] [address], [place] [id number] Dec, [facility] [address] [id number] [address] [place] [address], [place] [id number] Dec, [facility] [address] [id number] [address] [place] [address], [place] [id number] Dec, [facility] [address] [facility] [id number] [address] [place] [phone] Oct, [facility] [address] [facility] [id number] [address] [place] [id number] Feb, [facility] [address] [facility] [id number] [address] [place] [phone] Feb, [facility] [address] [facility] [id number] [address] [place] [id number] Jan, IMMUNIZATIONS No Known Immunizations SOCIAL HISTORY Never Assessed REASON FOR VISIT PLAN OF CARE VITAL SIGNS MEDICATIONS Unknown Medications RESULTS No Results PROCEDURES No Known procedures INSTRUCTIONS MEDICATIONS ADMINISTERED No Known Medications MEDICAL (GENERAL) HISTORY Type Description Date Medical History IBS Surgical History breast augmentation Surgical History right wrist cyst removed 11/2018 Hospitalization History surgeries
--- OUTSIDE RECORDS SUMMARY | 2019-09-10 16:36 | XMS REPORT ---
Author Author Karina Valdes Doctor Organization [facility] Address Unknown Phone Unavailable Care Team Providers Care Toys Inspector Name Role Phone Migration, Doctor Unavailable Unavailable PROBLEMS Type Condition ICD9-CM Code XRK25-VZ Code Onset Dates Condition S tatus SNOMED Code Problem Seasonal allergic rhinitis due to other allergic trigger J30.89 Active 489591979 Problem Anxiety F41.9 Active 34744932 Problem Well woman exam (no gynecological exam) Z00.00 Active 577372995 Problem Physical exam Z00.00 Active 273239 008 ALLERGIES No Information ENCOUNTERS Encounter Location Date Diagnosis [place] [address] [address] 03 Jun, 2019 Tinea versicolor B36.0 [place] [address] [place] [id number] [address] [place] [address] 02 Jun, 2019 Encounter for surveillance o f contraceptive pills Z30.41 and Family planning Z30.09 [place] [address] [place] [id number] [address] [place] [address] May, [place] [address] [place] [id number] [address] [place] [address] Nov, Ganglion cyst of dorsum of r ight wrist M67.431 ; Tinea versicolor B36.0 ; Screening for diabetes mellitus Z13.1 ; Screening for lipoid disorders Z13.220 and Screening for thyroid disorder Z13.29 [place] [address] [place] [id number] [address] [place] [address] Oct, Screening for thyroid disord er Z13.29 ; Screening for lipoid disorders Z13.220 ; Tinea versicolor B36.0 and Screening for diabetes mellitus Z13.1 [place] [address] [place] [id number] [address] [place] [address] Oct, Ganglion cyst of dorsum of r ight wrist M67.431 ; Tinea versicolor B36.0 ; Screening for diabetes mellitus Z13.1 ; Screening for lipoid disorders Z13.220 and Screening for thyroid disorder Z13.[address] [id number] [address] May, [place] [address] [address] [facility] [id number] [address] [place] [address] May, Family planning Z30.09 and W ell woman exam with routine gynecological exam Z01.419 [facility] [address] [facility] [id number] [address] [place] [address] May, [place] [address] [address] [facility] [id number] [address] [place] [address] Apr, [facility] [address] [facility] [id number] [address] [place] [address] Mar, Routine gynecological examin ation Z01.419 [facility] [address] [facility] [id number] [address] [place] [address] Feb, [place] [address] [address] [facility] [id number] [address] [place] [address] July, Wrist pain, left M25.532 and Anxiety F41.9 [facility] [address] [facility] [id number] [address] [place] [address] Feb, Other viral agents as the ca use of diseases classified elsewhere B97.89 and Acute upper respiratory infection, unspecified J06.9 [facility] [address] [facility] [id number] [address] [place] [address] Feb, Well woman exam with routine gynecological exam Z01.419 and Breast cancer screening Z12.39 [facility] [address] [facility] [id number] [address] [place] [address] Feb, Seasonal allergic rhinitis d ue to other allergic trigger J30.89 [facility] [address] [facility] [id number] [address] [place] [address] Feb, [facility] [address] [address] Feb, [facility] [address] [address] Jan, [facility] [address] [address] Oct, Abdominal bloating R14.0 [place] [address] [address] Aug, Allergic reaction caused by a drug, initial encounter T78.40XA and Spider bite wound, accidental or unintentional, sequela T63.301S [facility] [address] [address] Aug, [place] [address] [address] Aug, [facility] [address] [address] Aug, Insect bite, initial encount er W57.XXXA [place] [address] [address] July, Nevus of back D22.5 and Bloa ting R14.0 [place] [address] [address] July, Nevus of back D22.5 and Athl etes foot B35.3 [place] [address] [address] Jun, Bloating R14.0 and Nevus of back D22.5 [place] [address] [address] May, [place] [address] [address] Apr, [facility] [address] [id number] [address] [place] [address] Apr, Physical exam Z00.00 [facility] [address] [id number] [address] [place] [address] Apr, [facility] [address] [id number] [address] [place] [address] Mar, Sinusitis J32.9 [facility] [address] [id number] [address] [place] [address] Jan, Well woman exam (no gynecolo gical exam) Z00.00 [facility] [address] [id number] [address] [place] [address] 14 Jun, 2014 [facility] [address] [id number] [address] [place] [address] Jun, [facility] [address] [id number] [address] [place] [address] May, [facility] [address] [id number] [address] [place] [address] May, [facility] [address] [id number] [address] [place] [id number] Jan, [facility] [address] [id number] [address] [place] [address] Jan, [facility] [address] [id number] [address] [place] [address] Jan, [facility] [address] [id number] [address] [place] [address] Jan, [facility] [address] [id number] [address] [place] [address] Jan, [facility] [address] [id number] [address] [place] [address] July, [facility] [address] [id number] [address] [place] [id number] July, [facility] [address] [id number] [address] [place] [address], [place] [address] May, [facility] [address] [id number] [address] [place] [address], [place] [address] May, [facility] [address] [id number] [address] [place] [address], [place] [address] May, [facility] [address] [id number] [address] [place] [address], [place] [address] May, [facility] [address] [id number] [address] [place] [address], [place] [address] May, [facility] [address] [id number] [address] [place] [address], [place] [address] May, [facility] [address] [id number] [address] [place] [address], [place] [address] 16 Dec, 2012 [facility] [address] [id number] [address] [place] [address], [place] [address] 16 Dec, 2012 [facility] [address] [id number] [address] [place] [address], [place] [address] 16 Dec, 2012 [facility] [address] [id number] [address] [place] [address], [place] [address] 16 Dec, 2012 [facility] [address] [id number] [address] [place] [address], [place] [address] 14 Dec, 2012 [facility] [address] [id number] [address] [place] [address], [place] [address] 23 Nov, 2012 [facility] [address] [id number] [address] [place] [address], [place] [address] Nov, [facility] [address] [id number] [address] [place] [address], [place] [address] 30 Sep, 2012 [facility] [address] [id number] [address] [place] [address], [place] [address] Sep, [facility] [address] [id number] [address] [place] [address], [place] [address] Sep, [facility] [address] [id number] [address] [place] [address], [place] [address] Sep, [facility] [address] [id number] [address] [place] [address], [place] [address] Jan, [facility] [address] [id number] [address] [place] [address], [place] [address] Jan, [facility] [address] [id number] [address] [place] [address], [place] [address] Dec, [facility] [address] [id number] [address] [place] [address], [place] [address] Dec, [facility] [address] [id number] [address] [place] [address], [place] [address] Dec, [facility] [address] [id number] [address] [place] [address], [place] [address] Oct, [facility] [address] [id number] [address] [place] [address], [place] [address] Aug, [facility] [address] [id number] [address] [place] [address], [place] [address] July, [facility] [address] [id number] [address] [place] [address], [place] [address] July, [facility] [address] [id number] [address] [place] [address], [place] [id number] Mar, [facility] [address] [id number] [address] [place] [address], [place] [id number] Jan, [facility] [address] [id number] [address] [place] [address], [place] [id number] Dec, [facility] [address] [id number] [address] [place] [address], [place] [address] Dec, [facility] [address] [id number] [address] [place] [address], [place] [address] Dec, [facility] [address] [facility] [id number] [address] [place] [id number] Oct, [facility] [address] [facility] [id number] [address] [place] [id number] Feb, [facility] [address] [facility] [id number] [address] [place] [id number] Feb, [facility] [address] [facility] [id number] [address] [place] [phone] Jan, IMMUNIZATIONS No Known Immunizations SOCIAL HISTORY Never Assessed REASON FOR VISIT PLAN OF CARE VITAL SIGNS MEDICATIONS Unknown Medications RESULTS No Results PROCEDURES No Known procedures INSTRUCTIONS MEDICATIONS ADMINISTERED No Known Medications MEDICAL (GENERAL) HISTORY Type Description Date Medical History IBS Surgical History breast augmentation Surgical History right wrist cyst removed 11/2018 Hospitalization History surgeries
--- OUTSIDE RECORDS SUMMARY | 2019-09-10 16:36 | XMS REPORT ---
Author Author Karina Sage Organization [facility] Address [address] [place] [address] Care Team Providers Care Washhouse Worker Name Role Phone LORETO Sage Unavailable PROBLEMS Type Condition ICD9-CM Code [id number] Code Onset Dates Condition S tatus SNOMED Code Problem Seasonal allergic rhinitis due to other allergic trigger J30.89 Active 657344141 Problem Anxiety F41.9 Active 42804559 Problem Well woman exam (no gynecological exam) Z00.00 Active 075805688 Problem Physical exam Z00.00 Active 408133 008 ALLERGIES No Information ENCOUNTERS Encounter Location Date Diagnosis [address] [address] Jun, [address] [address] May, [address] [address] Nov, Ganglion cyst of dorsum of right wrist M 67.431 ; Tinea versicolor B36.0 ; Screening for diabetes mellitus Z13.1 ; Screening for lipoid disorders Z13.220 and Screening for thyroid disorder Z13.[address] [address] Oct, Screening for thyroid disorder Z13.29 ; Screening for lipoid disorders Z13.220 ; Tinea versicolor B36.0 and Screening for diabetes mellitus Z13.1 [place] [address] [address] Oct, Ganglion cyst of dorsum of right wrist M 67.431 ; Tinea versicolor B36.0 ; Screening for diabetes mellitus Z13.1 ; Screening for lipoid disorders Z13.220 and Screening for thyroid disorder Z13.29 [facility] [address] [place] [address] May, [place] [address] [address] May, Family planning Z30.09 and Well woman ex am with routine gynecological exam Z01.419 [place] [address] [address] 05 May, 2018 [place] [address] [address] Apr, [place] [address] [address] Mar, Routine gynecological examination Z01.41 9 [place] [address] [address] Feb, [place] [address] [address] July, Wrist pain, left M25.532 and Anxiety F41 .9 [facility] WALK IN [facility] [address] [place] [id number] [address] [place] [address] Feb, Other viral agents as the ca use of diseases classified elsewhere B97.89 and Acute upper respiratory infection, unspecified J06.9 [place] [address] [place] [id number] [place] [address] Feb, Well woman exam with routine gynecologic al exam Z01.419 and Breast cancer screening Z12.39 [facility] [address] [facility] [id number] [address] [place] [address] Feb, Seasonal allergic rhinitis d ue to other allergic trigger J30.89 [place] [address] [address] Feb, [facility] [address] [facility] [id number] [address] [place] [address] Feb, [place] [address] [address] Jan, [facility] [address] [address] Oct, Abdominal bloating R14.0 [place] [address] [address] Aug, Allergic reaction caused by a drug, init ial encounter T78.40XA and Spider bite wound, accidental or unintentional, sequela T63.301S [facility] [address] [facility] [id number] [place] [address] Aug, [place] [address] [address] Aug, [facility] [address] [facility] [id number] [place] [address] Aug, Insect bite, initial encount er W57.XXXA [place] [address] [address] July, Nevus of back D22.5 and Bloating R14.0 [place] [address] [address] July, Nevus of back D22.5 and Athletes foot B3 5.3 [place] [address] [address] Jun, Bloating R14.0 and Nevus of back D22.5 [place] [address] [address] May, [place] [address] [address] Apr, [place] [address] [address] Apr, Physical exam Z00.00 [place] [address] [address] 17 Apr, 2015 [place] [address] [place] [address] 06 Mar, 2015 Sinusitis J32.9 [facility] [address] [place] [id number] [place] [address] Jan, Well woman exam (no gynecological exam) Z00.00 [facility] [address] [place] [id number] [place] [address] 14 Jun, 2014 [facility] [address] [address] 13 Jun, 2014 [facility] [address] [place] [id number] [place] [address] May, [facility] [address] [place] [id number] [place] [address] May, [facility] [address] [place] [id number] [place] [address] Jan, [facility] [address] [place] [id number] [place] [address] Jan, [facility] [address] [place] [id number] [place] [address] Jan, [facility] [address] [place] [id number] [place] [address] Jan, [facility] [address] [place] [id number] [place] [address] Jan, [facility] [address] [place] [id number] [place] [address] July, [facility] [address] [place] [id number] [place] [address] July, [facility] [address] [place] [id number] [place] [address] May, [facility] [address] [place] [id number] [place] [address] May, [facility] [address] [place] [id number] [place] [address] May, [facility] [address] [place] [id number] [place] [address] May, [facility] [address] [facility] [id number] [place] [address] May, [facility] [address] [id number] [place] [address] May, [facility] [address] [id number] [place] [address] Dec, [facility] [address] [id number] [place] [address] 16 Dec, 2012 [facility] [address] [id number] [place] [address] Dec, [facility] [address] [id number] [place] [address] Dec, [facility] [address] [id number] [place] [address] Dec, [facility] [address] [id number] [place] [address] Nov, [facility] [address] [id number] [place] [address] Nov, [facility] [address] [id number] [place] [address] 30 Sep, 2012 [facility] [address] [id number] [place] [address] Sep, [facility] [address] [id number] [place] [address] Sep, [facility] [address] [id number] [place] [address] Sep, [facility] [address] [id number] [place] [address] Jan, [facility] [address] [id number] [place] [address] Jan, [facility] [address] [id number] [place] [address] Dec, [facility] [address] [place] [id number] [place] [address] Dec, [facility] [address] [place] [id number] [place] [address] Dec, [facility] [address] [place] [id number] [place] [address] Oct, [facility] [address] [place] [id number] [place] [address] Aug, [facility] [address] [place] [id number] [place] [address] July, [facility] [address] [place] [id number] [place] [address] July, [facility] [address] [place] [id number] [place] [address] Mar, [facility] [address] [place] [id number] [place] [address] Jan, [facility] [address] [place] [id number] [place] [address] Dec, [facility] [address] [place] [id number] [place] [address] Dec, [facility] [address] [place] [id number] [place] [address] Dec, [facility] [address] [place] [id number] [place] [address] Oct, [facility] [address] [place] [id number] [place] [address] Feb, [facility] [address] [place] [id number] [place] [address] Feb, [facility] [address] [place] [id number] [place] [address] Jan, IMMUNIZATIONS No Known Immunizations SOCIAL HISTORY Never Assessed REASON FOR VISIT PLAN OF CARE VITAL SIGNS Height 61 in 2013-05-26 Weight 108 lbs 2013-05-26 Temperature 99.4 degrees Fahrenheit 2013-05-26 Heart Rate 82 bpm 2013-05-26 Respiratory Rate 16 2013-05-26 Blood pressure systolic 118 mmHg 2013-05-26 Blood pressure diastolic 82 mmHg 2013-05-26 MEDICATIONS Unknown Medications RESULTS No Results PROCEDURES Procedure Date Ordered Result Body Site URINE TEST May 26, 2013 INSTRUCTIONS MEDICATIONS ADMINISTERED No Known Medications MEDICAL (GENERAL) HISTORY Type Description Date Medical History IBS Surgical History breast augmentation Hospitalization History surgeries
--- OUTSIDE RECORDS SUMMARY | 2019-09-10 16:37 | XMS REPORT ---
Author Author Karina Valdes Doctor Organization [facility] Address Unknown Phone Unavailable Care Team Providers Care Audio Visual Design Engineer Name Role Phone Migration, Doctor Unavailable Unavailable PROBLEMS Type Condition ICD9-CM Code EOL25-GO Code Onset Dates Condition S tatus SNOMED Code Problem Seasonal allergic rhinitis due to other allergic trigger J30.89 Active 022740504 Problem Anxiety F41.9 Active 36819001 Problem Well woman exam (no gynecological exam) Z00.00 Active 859930207 Problem Physical exam Z00.00 Active 058707 008 ALLERGIES No Information ENCOUNTERS Encounter Location Date Diagnosis [address] [address] May, [facility] [address] [facility] [id number] [address] [place] [address] May, Family planning Z30.09 and W ell woman exam with routine gynecological exam Z01.419 [facility] [address] [facility] [id number] [address] [place] [address] May, [facility] [address] [facility] [id number] [address] [place] [address] Apr, [facility] [address] [facility] [id number] [address] [place] [address] Mar, Routine gynecological examin ation Z01.419 [facility] [address] [id number] [address] [place] [address] Feb, [facility] [address] [facility] [id number] [address] [place] [address] July, Wrist pain, left M25.532 and Anxiety F41.9 [facility] [address] [facility] [id number] [address] [place] [address] Feb, Other viral agents as the ca use of diseases classified elsewhere B97.89 and Acute upper respiratory infection, unspecified J06.9 [facility] [address] [address] 26 Feb, 2016 Well woman exam with routine gynecological exam Z01.419 and Breast cancer screening Z12.39 [facility] [place] [address] [place] [id number] [place] [address] 23 Feb, 2016 Seasonal allergic rhinitis d ue to other allergic trigger J30.89 [place] [address] [address] 19 Feb, 2016 [facility] WALK IN [place] [address] [address] Feb, [place] [address] [address] Jan, [place] [address] [address] Oct, Abdominal bloating R14.0 [place] [address] [address] Aug, Allergic reaction caused by a drug, initial encounter T78.40XA and Spider bite wound, accidental or unintentional, sequela T63.301S [facility] [place] [address] [address] Aug, [place] [address] [address] Aug, [facility] WALK IN [place] [address] [address] Aug, Insect bite, initial encount er W57.XXXA [address] [address] July, Nevus of back D22.5 and Bloa ting R14.[address] [address] July, Nevus of back D22.5 and Athl etes foot B35.3 [facility] [address] [id number] [address] [place] [address] Jun, Bloating R14.0 and Nevus of back D22.5 [facility] [address] [id number] [address] [place] [address] May, [facility] [address] [id number] [address] [place] [address] Apr, [facility] [address] [id number] [address] [place] [address] Apr, Physical exam Z00.00 [facility] [address] [id number] [address] [place] [address] 17 Apr, 2015 [facility] [address] [facility] [id number] [address] [place] [address] Mar, Sinusitis J32.9 [facility] [address] [id number] [address] [place] [address] Jan, Well woman exam (no gynecolo gical exam) Z00.00 [facility] [address] [id number] [address] [place] [address] 14 Jun, 2014 [facility] [address] [facility] [id number] [address] [place] [address] 13 Jun, 2014 [facility] [address] [id number] [address] [place] [address] May, [facility] [address] [id number] [address] [place] [address] May, [facility] [address] [id number] [address] [place] [address] Jan, [facility] [address] [id number] [address] [place] [address] Jan, [facility] [address] [id number] [address] [place] [address] Jan, [facility] [address] [id number] [address] [place] [address], [place] [address] Jan, [facility] [address] [id number] [address] [place] [address], [place] [address] Jan, [facility] [address] [id number] [address] [place] [address], [place] [address] July, [facility] [address] [id number] [address] [place] [address], [place] [address] July, [facility] [address] [id number] [address] [place] [address], [place] [address] May, [facility] [address] [id number] [address] [place] [address], [place] [address] May, [facility] [address] [id number] [address] [place] [address], [place] [address] May, [facility] [address] [id number] [address] [place] [address], [place] [address] May, [facility] [address] [id number] [address] [place] [address], [place] [address] May, [facility] [address] [id number] [address] [place] [address], [place] [address] May, [facility] [address] [id number] [address] [place] [address], [place] [address] 16 Dec, 2012 [facility] [address] [id number] [address] [place] [address], [place] [address] 16 Dec, 2012 [facility] [address] [id number] [address] [place] [address], [place] [address] 16 Dec, 2012 [facility] [address] [id number] [address] [place] [address], [place] [address] 16 Dec, 2012 [facility] [address] [id number] [address] [place] [address], [place] [address] 14 Dec, 2012 [facility] [address] [id number] [address] [place] [address], [place] [address] Nov, [facility] [address] [id number] [address] [place] [address], [place] [address] Nov, [facility] [address] [id number] [address] [place] [address], [place] [address] Sep, [facility] [address] [id number] [address] [place] [address], [place] [address] Sep, [facility] [address] [id number] [address] [place] [address], [place] [address] Sep, [facility] [address] [id number] [address] [place] [address], [place] [address] Sep, [facility] [address] [id number] [address] [place] [address], [place] [address] Jan, [facility] [address] [id number] [address] [place] [address], [place] [address] Jan, [facility] [address] [id number] [address] [place] [address], [place] [address] Dec, [facility] [address] [id number] [address] [place] [address], [place] [address] Dec, [facility] [address] [id number] [address] [place] [address], [place] [address] Dec, [facility] [address] [id number] [address] [place] [address], [place] [address] Oct, [facility] [address] [id number] [address] [place] [address], [place] [address] Aug, [facility] [address] [id number] [address] [place] [address], [place] [address] July, [facility] [address] [id number] [address] [place] [address], [place] [address] July, [facility] [address] [id number] [address] [place] [address], [place] [address] Mar, [facility] [address] [id number] [address] [place] [address] Jan, [facility] [address] [id number] [address] [place] [address] Dec, [facility] [address] [id number] [address] [place] [address] Dec, [facility] [address] [id number] [address] [place] [address] Dec, [facility] [address] [id number] [address] [place] [address] Oct, [facility] [address] [id number] [address] [place] [address] Feb, [facility] [address] [id number] [address] [place] [address] Feb, [facility] [address] [id number] [address] [place] [address] Jan, IMMUNIZATIONS No Known Immunizations SOCIAL HISTORY Never Assessed REASON FOR VISIT EMR-[facility] PLAN OF CARE VITAL SIGNS MEDICATIONS Unknown Medications RESULTS No Results PROCEDURES No Known procedures INSTRUCTIONS MEDICATIONS ADMINISTERED No Known Medications MEDICAL (GENERAL) HISTORY Type Description Date Medical History IBS Surgical History breast augmentation Hospitalization History surgeries
--- OUTSIDE RECORDS SUMMARY | 2019-09-10 16:37 | XMS REPORT ---
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 Name Role Phone CAROLE TAM Unavailable PROBLEMS Type Condition ICD9-CM Code TVU23-FA Code Onset Dates Condition S tatus SNOMED Code Problem Seasonal allergic rhinitis due to other allergic trigger J30.89 Active 606515501 Problem Anxiety F41.9 Active 33209675 Problem Well woman exam (no gynecological exam) Z00.00 Active 526479475 Problem Physical exam Z00.00 Active 152455 008 ALLERGIES No Information ENCOUNTERS Encounter Location Date Diagnosis [facility] [address] [address] Nov, Ganglion cyst of dorsum of right wrist M 67.431 ; Tinea versicolor B36.0 ; Screening for diabetes mellitus Z13.1 ; Screening for lipoid disorders Z13.220 and Screening for thyroid disorder Z13.[address] [address] Oct, Screening for thyroid disorder Z13.29 ; Screening for lipoid disorders Z13.220 ; Tinea versicolor B36.0 and Screening for diabetes mellitus Z13.[address] [address] Oct, Ganglion cyst of dorsum of right wrist M 67.431 ; Tinea versicolor B36.0 ; Screening for diabetes mellitus Z13.1 ; Screening for lipoid disorders Z13.220 and Screening for thyroid disorder Z13.29 [address] [place] [address] May, [address] [address] May, Family planning Z30.09 and Well woman ex am with routine gynecological exam Z01.419 [place] [address] [address] May, [place] [address] [address] Apr, [place] [address] [address] Mar, Routine gynecological examination Z01.41 9 [place] [address] [address] Feb, [place] [address] [address] July, Wrist pain, left M25.532 and Anxiety F41 .9 [facility] [place] [address] [address] Feb, Other viral agents as the ca use of diseases classified elsewhere B97.89 and Acute upper respiratory infection, unspecified J06.9 [place] [address] [address] Feb, Well woman exam with routine gynecologic al exam Z01.419 and Breast cancer screening Z12.39 [facility] [place] [address] [address] [place] [id number] [address] [place] [address] Feb, Seasonal allergic rhinitis d ue to other allergic trigger J30.89 [place] [address] [address] Feb, [facility] [place] [address] [address] [place] [id number] [place] [address] Feb, [place] [address] [address] Jan, [place] [address] [address] Oct, Abdominal bloating R14.0 [place] [address] [address] Aug, Allergic reaction caused by a drug, init ial encounter T78.40XA and Spider bite wound, accidental or unintentional, sequela T63.301S [facility] [address] [facility] [id number] [address] [address] Aug, [place] [address] [address] Aug, [facility] [address] [facility] [id number] [place] [address] Aug, Insect bite, initial encount er W57.XXXA [place] [address] [address] July, Nevus of back D22.5 and Bloating R14.0 [place] [address] [address] July, Nevus of back D22.5 and Athletes foot B3 5.3 [place] [address] [address] Jun, Bloating R14.0 and Nevus of back D22.5 [place] [address] [address] May, [place] [address] [address] Apr, [place] [address] [address] Apr, Physical exam Z00.00 [place] [address] [address] 17 Apr, 2015 [place] [address] [address] Mar, Sinusitis J32.9 [place] [address] [address] 04 Jan, 2015 Well woman exam (no gynecological exam) Z00.00 [place] [address] [id number] [place] [address] 14 Jun, 2014 [facility] [address] [id number] [place] [address] 13 Jun, 2014 [facility] [address] [id number] [place] [address] 11 May, 2014 [facility] [address] [id number] [place] [address] 11 May, 2014 [facility] [address] [id number] [place] [address] Jan, [facility] [address] [id number] [place] [address] Jan, [facility] [address] [id number] [place] [address] Jan, [facility] [address] [id number] [place] [address] Jan, [facility] [address] [id number] [place] [address] Jan, [facility] [address] [id number] [place] [address] July, [facility] [address] [id number] [place] [address] July, [facility] [address] [id number] [place] [address] May, [facility] [address] [id number] [place] [address] May, [facility] [address] [id number] [place] [address] May, [facility] [address] [id number] [place] [address] 20 May, 2013 [facility] [address] [id number] [place] [address] May, [facility] [address] [id number] [place] [address] May, [facility] [address] [facility] [id number] [place] [address] Dec, 2012 [facility] [address] [facility] [id number] [place] [address] 16 Dec, 2012 [facility] [address] [id number] [place] [address] 16 Dec, 2012 [facility] [address] [id number] [place] [address] 16 Dec, 2012 [facility] [address] [facility] [id number] [place] [address] 14 Dec, 2012 [facility] [address] [id number] [place] [address] Nov, [facility] [address] [id number] [place] [address] Nov, [facility] [address] [id number] [place] [address] 30 Sep, 2012 [facility] [address] [id number] [place] [address] 29 Sep, 2012 [facility] [address] [id number] [place] [address] Sep, [facility] [address] [id number] [place] [address] Sep, [facility] [address] [id number] [place] [address] Jan, [facility] [address] [id number] [place] [address] Jan, [facility] [address] [id number] [place] [address] Dec, [facility] [address] [id number] [place] [address] Dec, [facility] [address] [id number] [place] [address] Dec, [facility] [address] [id number] [place] [address] Oct, [facility] [address] [id number] [place] [address] Aug, [facility] [address] [id number] [place] [address] July, [facility] [address] [id number] [place] [address] July, [facility] [address] [place] [id number] [place] [address] Mar, [facility] [address] [place] [id number] [place] [address] Jan, [facility] [address] [place] [id number] [place] [address] Dec, [facility] [address] [place] [id number] [place] [address] Dec, [facility] [address] [place] [id number] [place] [address] Dec, [facility] [address] [id number] [place] [address] Oct, [facility] [address] [place] [id number] [place] [address] Feb, [facility] [address] [id number] [place] [address] Feb, [facility] [address] [place] [id number] [place] [address] Jan, IMMUNIZATIONS No Known Immunizations SOCIAL HISTORY Never Assessed REASON FOR VISIT PLAN OF CARE VITAL SIGNS MEDICATIONS Unknown Medications RESULTS No Results PROCEDURES No Known procedures INSTRUCTIONS MEDICATIONS ADMINISTERED No Known Medications MEDICAL (GENERAL) HISTORY Type Description Date Medical History IBS Surgical History breast augmentation Hospitalization History surgeries
--- OUTSIDE RECORDS SUMMARY | 2019-09-10 16:37 | XMS REPORT ---
Author Author Karina Valdes Doctor Organization [facility] Address Unknown Phone Unavailable Care Team Providers Care Attorney Name Role Phone Migration, Doctor Unavailable Unavailable PROBLEMS Type Condition ICD9-CM Code [id number] Code Onset Dates Condition S tatus SNOMED Code Problem Seasonal allergic rhinitis due to other allergic trigger J30.89 Active 855140708 Problem Anxiety F41.9 Active 04139473 Problem Well woman exam (no gynecological exam) Z00.00 Active 306555372 Problem Physical exam Z00.00 Active 334949 008 ALLERGIES No Information ENCOUNTERS Encounter Location Date Diagnosis [address] [address] May, [facility] [address] [facility] [id number] [address] [place] [address] May, Family planning Z30.09 and W ell woman exam with routine gynecological exam Z01.419 [facility] [address] [facility] [id number] [address] [place] [address] May, [facility] [address] [facility] [id number] [address] [place] [address] Apr, [facility] [address] [facility] [id number] [address] [place] [address] Mar, Routine gynecological examin ation Z01.419 [facility] [address] [id number] [address] [place] [address] Feb, [facility] [address] [facility] [id number] [address] [place] [address] July, Wrist pain, left M25.532 and Anxiety F41.9 [facility] [address] [facility] [id number] [address] [place] [address] Feb, Other viral agents as the ca use of diseases classified elsewhere B97.89 and Acute upper respiratory infection, unspecified J06.9 [facility] [address] [address] 26 Feb, 2016 Well woman exam with routine gynecological exam Z01.419 and Breast cancer screening Z12.[address] [facility] [place] [address] [address] [place] [id number] [place] [address] 23 Feb, 2016 Seasonal allergic rhinitis d ue to other allergic trigger J30.89 [place] [address] [address] 19 Feb, 2016 [facility] [place] [address] [address] Feb, [place] [address] [address] Jan, [place] [address] [address] Oct, Abdominal bloating R14.0 [place] [address] [address] Aug, Allergic reaction caused by a drug, initial encounter T78.40XA and Spider bite wound, accidental or unintentional, sequela T63.301S [facility] [place] [address] [address] Aug, [place] [address] [address] Aug, [facility] [place] [address] [address] Aug, Insect bite, initial encount er W57.XXXA [address] [address] July, Nevus of back D22.5 and Bloa ting R14.[address] [address] July, Nevus of back D22.5 and Athl etes foot B35.3 [facility] [address] [id number] [address] [place] [address] Jun, Bloating R14.0 and Nevus of back D22.5 [facility] [address] [id number] [address] [place] [address] May, [facility] [address] [id number] [address] [place] [address] Apr, [facility] [address] [id number] [address] [place] [address] Apr, Physical exam Z00.00 [facility] [address] [id number] [address] [place] [address] 17 Apr, 2015 [facility] [address] [facility] [id number] [address] [place] [address] Mar, Sinusitis J32.9 [facility] [address] [id number] [address] [place] [address] Jan, Well woman exam (no gynecolo gical exam) Z00.00 [facility] [address] [id number] [address] [place] [address] 14 Jun, 2014 [facility] [address] [facility] [id number] [address] [place] [address] 13 Jun, 2014 [facility] [address] [id number] [address] [place] [address] May, [facility] [address] [id number] [address] [place] [address] May, [facility] [address] [id number] [address] [place] [address] Jan, [facility] [address] [id number] [address] [place] [address] Jan, [facility] [address] [id number] [address] [place] [address] Jan, [facility] [address] [id number] [address] [place] [address], [place] [address] Jan, [facility] [address] [id number] [address] [place] [address], [place] [address] Jan, [facility] [address] [id number] [address] [place] [address], [place] [address] July, [facility] [address] [id number] [address] [place] [address], [place] [address] July, [facility] [address] [id number] [address] [place] [address], [place] [address] May, [facility] [address] [id number] [address] [place] [address], [place] [address] May, [facility] [address] [id number] [address] [place] [address], [place] [address] May, [facility] [address] [id number] [address] [place] [address], [place] [address] May, [facility] [address] [id number] [address] [place] [address], [place] [address] May, [facility] [address] [id number] [address] [place] [address], [place] [address] May, [facility] [address] [id number] [address] [place] [address], [place] [address] 16 Dec, 2012 [facility] [address] [id number] [address] [place] [address], [place] [address] 16 Dec, 2012 [facility] [address] [id number] [address] [place] [address], [place] [address] 16 Dec, 2012 [facility] [address] [id number] [address] [place] [address], [place] [address] 16 Dec, 2012 [facility] [address] [id number] [address] [place] [address], [place] [address] 14 Dec, 2012 [facility] [address] [id number] [address] [place] [address], [place] [address] Nov, [facility] [address] [id number] [address] [place] [address], [place] [address] Nov, [facility] [address] [id number] [address] [place] [address], [place] [address] Sep, [facility] [address] [id number] [address] [place] [address], [place] [address] Sep, [facility] [address] [id number] [address] [place] [address], [place] [address] Sep, [facility] [address] [id number] [address] [place] [address], [place] [address] Sep, [facility] [address] [id number] [address] [place] [address], [place] [address] Jan, [facility] [address] [id number] [address] [place] [address], [place] [address] Jan, [facility] [address] [id number] [address] [place] [address], [place] [address] Dec, [facility] [address] [id number] [address] [place] [address], [place] [address] Dec, [facility] [address] [id number] [address] [place] [address], [place] [address] Dec, [facility] [address] [id number] [address] [place] [address], [place] [address] Oct, [facility] [address] [id number] [address] [place] [address], [place] [address] Aug, [facility] [address] [id number] [address] [place] [address], [place] [address] July, [facility] [address] [id number] [address] [place] [address], [place] [address] July, [facility] [address] [id number] [address] [place] [address], [place] [address] Mar, [facility] [address] [id number] [address] [place] [address] Jan, [facility] [address] [id number] [address] [place] [address] Dec, [facility] [address] [id number] [address] [place] [address] Dec, [facility] [address] [id number] [address] [place] [address] Dec, [facility] [address] [id number] [address] [place] [address] Oct, [facility] [address] [id number] [address] [place] [address] Feb, [facility] [address] [id number] [address] [place] [address] Feb, [facility] [address] [id number] [address] [place] [address] Jan, IMMUNIZATIONS No Known Immunizations SOCIAL HISTORY Never Assessed REASON FOR VISIT [facility] [place] CARE VITAL SIGNS MEDICATIONS Unknown Medications RESULTS No Results PROCEDURES No Known procedures INSTRUCTIONS MEDICATIONS ADMINISTERED No Known Medications MEDICAL (GENERAL) HISTORY Type Description Date Medical History IBS Surgical History breast augmentation Hospitalization History surgeries
--- OUTSIDE RECORDS SUMMARY | 2019-09-10 16:37 | XMS REPORT ---
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 Name Role Phone CHRISTINA Conteh Unavailable PROBLEMS Type Condition ICD9-CM Code [id number] Code Onset Dates Condition S tatus SNOMED Code Problem Seasonal allergic rhinitis due to other allergic trigger J30.89 Active 774205759 Problem Anxiety F41.9 Active 42226566 Problem Well woman exam (no gynecological exam) Z00.00 Active 905383356 Problem Physical exam Z00.00 Active 560725 008 ALLERGIES No Information ENCOUNTERS Encounter Location Date Diagnosis [id number] [address] [facility] [id number] [address] [place] [address] Oct, [address] [address] May, [place] [facility] [id number] [address] [place] [address] May, Family planning Z30.09 and W ell woman exam with routine gynecological exam Z01.419 [place] [address] [address] [facility] [id number] [address] [place] [address] May, [facility] [address] [facility] [id number] [address] [place] [address] Apr, [facility] [address] [facility] [id number] [address] [place] [address] Mar, Routine gynecological examin ation Z01.419 [facility] [address] [facility] [id number] [address] [place] [address] Feb, [place] [facility] [id number] [address] [place] [address] July, Wrist pain, left M25.532 and Anxiety F41.9 [facility] [place] [address] N [place] [id number] [address] [place] [address] Feb, Other viral agents as the ca use of diseases classified elsewhere B97.89 and Acute upper respiratory infection, unspecified J06.9 [place] [address] [address] [place] [id number] [place] [address] Feb, Well woman exam with routine gynecological exam Z01.419 and Breast cancer screening Z12.39 [facility] [place] [address] [address] Feb, Seasonal allergic rhinitis d ue to other allergic trigger J30.89 [place] [address] [address] Feb, [facility] IN [address] [address] Feb, [place] [address] [address] Jan, [address] [address] Oct, Abdominal bloating R14.[address] [address] Aug, Allergic reaction caused by a drug, initial encounter T78.40XA and Spider bite wound, accidental or unintentional, sequela T63.301S [facility] N [address] [place] [address] Aug, [place] [address] [address] Aug, [facility] [place] [address] [address] [place] [id number] [place] [address] Aug, Insect bite, initial encount er W57.XXXA [address] [address] July, Nevus of back D22.5 and Bloa ting R14.0 [facility] [address] [id number] [address] [place] [address] July, Nevus of back D22.5 and Athl etes foot B35.3 [facility] [address] [id number] [address] [place] [address] Jun, Bloating R14.0 and Nevus of back D22.5 [facility] [address] [id number] [address] [place] [address] May, [facility] [address] [id number] [address] [place] [address] Apr, [facility] [address] [facility] [id number] [address] [place] [address] Apr, Physical exam Z00.00 [facility] [address] [id number] [address] [place] [address] 17 Apr, 2015 [facility] [address] [id number] [address] [place] [address] Mar, Sinusitis J32.9 [facility] [address] [facility] [id number] [address] [place] [address] 04 Jan, 2015 Well woman exam (no gynecolo gical exam) Z00.00 [facility] [address] [id number] [address] [place] [address] 14 Jun, 2014 [facility] [address] [id number] [address] [place] [id number] 13 Jun, 2014 [facility] [address] [id number] [address] [place] [phone] 11 May, 2014 [facility] [address] [id number] [address] [place] [phone] 11 May, 2014 [facility] [address] [id number] [address] [place] [phone] Jan, [facility] [address] [id number] [address] [place] [address], [place] [address] Jan, [facility] [address] [id number] [address] [place] [address], [place] [address] Jan, [facility] [address] [id number] [address] [place] [address], [place] [address] Jan, [facility] [address] [id number] [address] [place] [address], [place] [address] Jan, [facility] [address] [id number] [address] [place] [address], [place] [address] July, [facility] [address] [id number] [address] [place] [address], [place] [address] July, [facility] [address] [id number] [address] [place] [address], [place] [address] May, [facility] [address] [id number] [address] [place] [address], [place] [address] May, [facility] [address] [id number] [address] [place] [address], [place] [address] May, [facility] [address] [id number] [address] [place] [address], [place] [address] May, [facility] [address] [id number] [address] [place] [address], [place] [address] May, [facility] [address] [id number] [address] [place] [address], [place] [address] May, [facility] [address] [id number] [address] [place] [address], [place] [address] Dec, [facility] [address] [id number] [address] [place] [address], [place] [address] Dec, [facility] [address] [id number] [address] [place] [address], [place] [address] Dec, [facility] [address] [id number] [address] [place] [address], [place] [address] 16 Dec, 2012 [facility] [address] [id number] [address] [place] [address], [place] [address] 14 Dec, 2012 [facility] [address] [id number] [address] [place] [address], [place] [address] Nov, [facility] [address] [id number] [address] [place] [address], [place] [address] Nov, [facility] [address] [id number] [address] [place] [address], [place] [address] 30 Sep, 2012 [facility] [address] [id number] [address] [place] [address], [place] [address] Sep, [facility] [address] [id number] [address] [place] [address], [place] [address] Sep, [facility] [address] [id number] [address] [place] [address], [place] [address] Sep, [facility] [address] [id number] [address] [place] [address], [place] [address] Jan, [facility] [address] [id number] [address] [place] [address], [place] [address] Jan, [facility] [address] [id number] [address] [place] [address], [place] [address] Dec, [facility] [address] [id number] [address] [place] [address], [place] [address] Dec, [facility] [address] [id number] [address] [place] [address], [place] [address] Dec, [facility] [address] [id number] [address] [place] [address], [place] [address] Oct, [facility] [address] [id number] [address] [place] [address], [place] [address] Aug, [facility] [address] [id number] [address] [place] [address], [place] [address] July, [facility] [address] [id number] [address] [place] [address] July, [facility] [address] [id number] [address] [place] [address] Mar, [facility] [address] [id number] [address] [place] [address] Jan, [facility] [address] [id number] [address] [place] [address] Dec, [facility] [address] [id number] [address] [place] [address] Dec, [facility] [address] [id number] [address] [place] [address] Dec, [facility] [address] [id number] [address] [place] [address] Oct, [facility] [address] [id number] [address] [place] [phone] Feb, [facility] [address] [id number] [address] [place] [address] Feb, [facility] [address] [id number] [address] [place] [address] Jan, IMMUNIZATIONS No Known Immunizations SOCIAL HISTORY Never Assessed REASON FOR VISIT PLAN OF CARE VITAL SIGNS MEDICATIONS Unknown Medications RESULTS No Results PROCEDURES No Known procedures INSTRUCTIONS MEDICATIONS ADMINISTERED No Known Medications MEDICAL (GENERAL) HISTORY Type Description Date Medical History IBS Surgical History breast augmentation Hospitalization History surgeries
--- OUTSIDE RECORDS SUMMARY | 2019-09-10 16:37 | XMS REPORT ---
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 Name Role Phone Migration, Doctor Unavailable Unavailable PROBLEMS Type Condition ICD9-CM Code [id number] Code Onset Dates Condition S tatus SNOMED Code Problem Seasonal allergic rhinitis due to other allergic trigger J30.89 Active 469648233 Problem Anxiety F41.9 Active 09318432 Problem Well woman exam (no gynecological exam) Z00.00 Active 103582444 Problem Physical exam Z00.00 Active 634715 008 ALLERGIES No Information ENCOUNTERS Encounter Location Date Diagnosis [facility] [address] [place] [address] Oct, [address] [address] May, [facility] [address] [facility] [id number] [address] [place] [address] May, Family planning Z30.09 and W ell woman exam with routine gynecological exam Z01.419 [facility] [address] [place] [id number] [address] [place] [address] May, [facility] [address] [facility] [id number] [address] [place] [address] Apr, [facility] [address] [facility] [id number] [address] [place] [address] Mar, Routine gynecological examin ation Z01.419 [facility] [address] [facility] [id number] [address] [place] [address] Feb, [facility] [address] [facility] [id number] [address] [place] [address] July, Wrist pain, left M25.532 and Anxiety F41.9 [facility] [address] [address] Feb, Other viral agents as the ca use of diseases classified elsewhere B97.89 and Acute upper respiratory infection, unspecified J06.9 [place] [address] [address] Feb, Well woman exam with routine gynecological exam Z01.419 and Breast cancer screening Z12.39 [facility] IN [place] [address] [address] Feb, Seasonal allergic rhinitis d ue to other allergic trigger J30.[address] [place] [address] [address] Feb, [facility] [place] [address] [address] Feb, [address] [place] [address] [address] Jan, [place] [address] [address] Oct, Abdominal bloating R14.[address] [place] [address] [address] Aug, Allergic reaction caused by a drug, initial encounter T78.40XA and Spider bite wound, accidental or unintentional, sequela T63.301S [facility] IN [address] [address] Aug, [place] [address] [address] Aug, [facility] IN [address] [address] Aug, Insect bite, initial encount er W57.XXXA [address] [place] [address] [address] July, Nevus of back D22.5 and Bloa ting R14.0 [facility] [address] [id number] [address] [place] [address] July, Nevus of back D22.5 and Athl etes foot B35.3 [facility] [address] [id number] [address] [place] [address] Jun, Bloating R14.0 and Nevus of back D22.5 [facility] [address] [id number] [address] [place] [address] May, [facility] [address] [id number] [address] [place] [address] Apr, [facility] [address] [id number] [address] [place] [address] Apr, Physical exam Z00.00 [facility] [address] [id number] [address] [place] [address] 17 Apr, 2015 [facility] [address] [id number] [address] [place] [address] Mar, Sinusitis J32.9 [facility] [address] [id number] [address] [place] [address] Jan, Well woman exam (no gynecolo gical exam) Z00.00 [facility] [address] [id number] [address] [place] [address] 14 Jun, 2014 [facility] [address] [id number] [address] [place] [address] 13 Jun, 2014 [facility] [address] [id number] [address] [place] [address] May, [facility] [address] [id number] [address] [place] [address] May, [facility] [address] [id number] [address] [place] [address] Jan, [facility] [address] [id number] [address] [place] [address] Jan, [facility] [address] [id number] [address] [place] [address], [place] [address] Jan, [facility] [address] [id number] [address] [place] [address], [place] [address] Jan, [facility] [address] [id number] [address] [place] [address], [place] [address] Jan, [facility] [address] [id number] [address] [place] [address], [place] [address] July, [facility] [address] [id number] [address] [place] [address], [place] [address] July, [facility] [address] [id number] [address] [place] [address], [place] [address] May, [facility] [address] [id number] [address] [place] [address], [place] [address] May, [facility] [address] [id number] [address] [place] [address], [place] [address] May, [facility] [address] [id number] [address] [place] [address], [place] [address] May, [facility] [address] [id number] [address] [place] [address], [place] [address] May, [facility] [address] [id number] [address] [place] [address], [place] [address] May, [facility] [address] [id number] [address] [place] [address], [place] [address] Dec, [facility] [address] [id number] [address] [place] [address], [place] [address] Dec, [facility] [address] [id number] [address] [place] [address], [place] [address] Dec, [facility] [address] [id number] [address] [place] [address], [place] [address] Dec, [facility] [address] [id number] [address] [place] [address], [place] [address] 14 Dec, 2012 [facility] [address] [id number] [address] [place] [address], [place] [address] Nov, [facility] [address] [id number] [address] [place] [address], [place] [address] Nov, [facility] [address] [id number] [address] [place] [address], [place] [address] 30 Sep, 2012 [facility] [address] [id number] [address] [place] [address], [place] [address] Sep, [facility] [address] [id number] [address] [place] [address], [place] [address] Sep, [facility] [address] [id number] [address] [place] [address], [place] [address] Sep, [facility] [address] [id number] [address] [place] [address], [place] [address] Jan, [facility] [address] [id number] [address] [place] [address], [place] [address] Jan, [facility] [address] [id number] [address] [place] [address], [place] [address] Dec, [facility] [address] [id number] [address] [place] [address], [place] [address] Dec, [facility] [address] [id number] [address] [place] [address], [place] [address] Dec, [facility] [address] [id number] [address] [place] [address], [place] [address] Oct, [facility] [address] [id number] [address] [place] [address], [place] [address] Aug, [facility] [address] [id number] [address] [place] [address], [place] [address] July, [facility] [address] [id number] [address] [place] [address], [place] [address] July, [facility] [address] [id number] [address] [place] [address] Mar, [facility] [address] [id number] [address] [place] [address] Jan, [facility] [address] [id number] [address] [place] [address] Dec, [facility] [address] [id number] [address] [place] [address] Dec, [facility] [address] [id number] [address] [place] [address] Dec, [facility] [address] [id number] [address] [place] [address] Oct, [facility] [address] [id number] [address] [place] [address] Feb, [facility] [address] [id number] [address] [place] [address] Feb, [facility] [address] [id number] [address] [place] [address] Jan, IMMUNIZATIONS No Known Immunizations SOCIAL HISTORY Never Assessed REASON FOR VISIT PLAN OF CARE VITAL SIGNS Height 61 in 2011-07-13 Weight 111.5 lbs 2011-07-13 Temperature 98.1 degrees Fahrenheit 2011-07-13 Heart Rate 66 bpm 2011-07-13 Respiratory Rate 16 2011-07-13 Blood pressure systolic 118 mmHg 2011-07-13 Blood pressure diastolic 68 mmHg 2011-07-13 MEDICATIONS Unknown Medications RESULTS No Results PROCEDURES No Known procedures INSTRUCTIONS MEDICATIONS ADMINISTERED No Known Medications MEDICAL (GENERAL) HISTORY Type Description Date Medical History IBS Surgical History breast augmentation Hospitalization History surgeries
--- OUTSIDE RECORDS SUMMARY | 2019-09-10 16:37 | XMS REPORT ---
Author Author Karina Valdes Doctor Organization 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 Name Role Phone Migration, Doctor Unavailable Unavailable PROBLEMS Type Condition ICD9-CM Code [id number] Code Onset Dates Condition S tatus SNOMED Code Problem Seasonal allergic rhinitis due to other allergic trigger J30.89 Active 640371381 Problem Anxiety F41.9 Active 30351325 Problem Well woman exam (no gynecological exam) Z00.00 Active 604418355 Problem Physical exam Z00.00 Active 642910 008 ALLERGIES No Information ENCOUNTERS Encounter Location Date Diagnosis [address] [address] May, [facility] [address] [facility] [id number] [address] [place] [address] May, Family planning Z30.09 and W ell woman exam with routine gynecological exam Z01.419 [facility] [address] [facility] [id number] [address] [place] [phone] May, [facility] [address] [facility] [id number] [address] [place] [phone] Apr, [facility] [address] [facility] [id number] [address] [place] [address] Mar, Routine gynecological examin ation Z01.419 [facility] [address] [id number] [address] [place] [id number] Feb, [facility] [address] [facility] [id number] [address] [place] [address] July, Wrist pain, left M25.532 and Anxiety F41.9 [facility] [address] [facility] [id number] [address] [place] [address] Feb, Other viral agents as the ca use of diseases classified elsewhere B97.89 and Acute upper respiratory infection, unspecified J06.9 [facility] [address] [address] 26 Feb, 2016 Well woman exam with routine gynecological exam Z01.419 and Breast cancer screening Z12.39 [facility] [place] [address] [address] [place] [id number] [place] [address] 23 Feb, 2016 Seasonal allergic rhinitis d ue to other allergic trigger J30.89 [place] [address] [address] 19 Feb, 2016 [facility] [place] [address] [address] Feb, [place] [address] [address] Jan, [place] [address] [address] Oct, Abdominal bloating R14.0 [place] [address] [address] Aug, Allergic reaction caused by a drug, initial encounter T78.40XA and Spider bite wound, accidental or unintentional, sequela T63.301S [facility] [place] [address] [address] Aug, [place] [address] [address] Aug, [facility] [place] [address] [address] Aug, Insect bite, initial encount er W57.XXXA [address] [address] July, Nevus of back D22.5 and Bloa ting R14.[address] [address] July, Nevus of back D22.5 and Athl etes foot B35.3 [facility] [address] [id number] [address] [place] [phone] Jun, Bloating R14.0 and Nevus of back D22.5 [facility] [address] [id number] [address] [place] [phone] May, [facility] [address] [id number] [address] [place] [phone] Apr, [facility] [address] [id number] [address] [place] [address] Apr, Physical exam Z00.00 [facility] [address] [id number] [address] [place] [address] 17 Apr, 2015 [facility] [address] [facility] [id number] [address] [place] [id number] Mar, Sinusitis J32.9 [facility] [address] [id number] [address] [place] [phone] Jan, Well woman exam (no gynecolo gical exam) Z00.00 [facility] [address] [id number] [address] [place] [id number] 14 Jun, 2014 [facility] [address] [facility] [id number] [address] [place] [phone] 13 Jun, 2014 [facility] [address] [id number] [address] [place] [phone] May, [facility] [address] [id number] [address] [place] [phone] May, [facility] [address] [id number] [address] [place] [phone] Jan, [facility] [address] [id number] [address] [place] [phone] Jan, [facility] [address] [id number] [address] [place] [phone] Jan, [facility] [address] [id number] [address] [place] [address], [place] [address] Jan, [facility] [address] [id number] [address] [place] [address], [place] [address] Jan, [facility] [address] [id number] [address] [place] [address], [place] [address] July, [facility] [address] [id number] [address] [place] [address], [place] [address] July, [facility] [address] [id number] [address] [place] [address], [place] [address] May, [facility] [address] [id number] [address] [place] [address], [place] [address] May, [facility] [address] [id number] [address] [place] [address], [place] [address] May, [facility] [address] [id number] [address] [place] [address], [place] [address] May, [facility] [address] [id number] [address] [place] [address], [place] [address] May, [facility] [address] [id number] [address] [place] [address], [place] [address] May, [facility] [address] [id number] [address] [place] [address], [place] [address] 16 Dec, 2012 [facility] [address] [id number] [address] [place] [address], [place] [address] 16 Dec, 2012 [facility] [address] [id number] [address] [place] [address], [place] [address] 16 Dec, 2012 [facility] [address] [id number] [address] [place] [address], [place] [address] 16 Dec, 2012 [facility] [address] [id number] [address] [place] [address], [place] [address] 14 Dec, 2012 [facility] [address] [id number] [address] [place] [address], [place] [address] Nov, [facility] [address] [id number] [address] [place] [address], [place] [address] Nov, [facility] [address] [id number] [address] [place] [address], [place] [address] Sep, [facility] [address] [id number] [address] [place] [address], [place] [address] Sep, [facility] [address] [id number] [address] [place] [address], [place] [address] Sep, [facility] [address] [id number] [address] [place] [address], [place] [address] Sep, [facility] [address] [id number] [address] [place] [address], [place] [address] Jan, [facility] [address] [id number] [address] [place] [address], [place] [address] Jan, [facility] [address] [id number] [address] [place] [address], [place] [address] Dec, [facility] [address] [id number] [address] [place] [address], [place] [address] Dec, [facility] [address] [id number] [address] [place] [address], [place] [address] Dec, [facility] [address] [id number] [address] [place] [address], [place] [address] Oct, [facility] [address] [id number] [address] [place] [address], [place] [address] Aug, [facility] [address] [id number] [address] [place] [address], [place] [address] July, [facility] [address] [id number] [address] [place] [address], [place] [address] July, [facility] [address] [id number] [address] [place] [address], [place] [address] Mar, [facility] [address] [id number] [address] [place] [phone] Jan, [facility] [address] [id number] [address] [place] [phone] Dec, [facility] [address] [id number] [address] [place] [phone] Dec, [facility] [address] [id number] [address] [place] [phone] Dec, [facility] [address] [id number] [address] [place] [phone] Oct, [facility] [address] [id number] [address] [place] [phone] Feb, [facility] [address] [id number] [address] [place] [phone] Feb, [facility] [address] [id number] [address] [place] [phone] Jan, IMMUNIZATIONS No Known Immunizations SOCIAL HISTORY Never Assessed REASON FOR VISIT EMR-[facility] PLAN OF CARE VITAL SIGNS MEDICATIONS Unknown Medications RESULTS No Results PROCEDURES No Known procedures INSTRUCTIONS MEDICATIONS ADMINISTERED No Known Medications MEDICAL (GENERAL) HISTORY Type Description Date Medical History IBS Surgical History breast augmentation Hospitalization History surgeries
--- OUTSIDE RECORDS SUMMARY | 2019-09-10 16:37 | XMS REPORT ---
Author Author Karina CORTES Organization [facility] Address [address] [place] [address] Care Team Providers Care Disc Jockey Name Role Phone KEL CORTES Unavailable PROBLEMS Type Condition ICD9-CM Code LBE69-II Code Onset Dates Condition S tatus SNOMED Code Problem Seasonal allergic rhinitis due to other allergic trigger J30.89 Active 894731659 Problem Anxiety F41.9 Active 97942148 Problem Well woman exam (no gynecological exam) Z00.00 Active 275452488 Problem Physical exam Z00.00 Active 641617 008 ALLERGIES No Information ENCOUNTERS Encounter Location Date Diagnosis [place] [address] [address] [facility] [id number] [address] [place] [address] Oct, [address] [address] May, [place] [address] [address] [facility] [id number] [address] [place] [address] May, Family planning Z30.09 and W ell woman exam with routine gynecological exam Z01.419 [place] [address] [address] [facility] [id number] [address] [place] [address] May, [place] [facility] [id number] [address] [place] [address] Apr, [facility] [address] [facility] [id number] [address] [place] [address] Mar, Routine gynecological examin ation Z01.419 [facility] [address] [facility] [id number] [address] [place] [address] Feb, [place] [facility] [id number] [address] [place] [address] July, Wrist pain, left M25.532 and Anxiety F41.9 [facility] [place] [address] [place] [id number] [address] [place] [address] Feb, Other viral agents as the ca use of diseases classified elsewhere B97.89 and Acute upper respiratory infection, unspecified J06.9 [place] [address] [address] [place] [id number] [place] [address] Feb, Well woman exam with routine gynecological exam Z01.419 and Breast cancer screening Z12.39 [facility] [place] [address] [address] Feb, Seasonal allergic rhinitis d ue to other allergic trigger J30.89 [place] [address] [address] Feb, [facility] [address] [address] Feb, [place] [address] [address] Jan, [address] [address] Oct, Abdominal bloating R14.[address] [address] Aug, Allergic reaction caused by a drug, initial encounter T78.40XA and Spider bite wound, accidental or unintentional, sequela T63.301S [facility] N [id number] [place] [address] Aug, [place] [address] [address] Aug, [facility] [place] [address] [place] [id number] [place] [address] Aug, Insect bite, initial encount er W57.XXXA [address] [address] July, Nevus of back D22.5 and Bloa ting R14.0 [facility] [address] [id number] [address] [place] [address] July, Nevus of back D22.5 and Athl etes foot B35.3 [facility] [address] [id number] [address] [place] [address] Jun, Bloating R14.0 and Nevus of back D22.5 [facility] [address] [id number] [address] [place] [address] May, [facility] [address] [id number] [address] [place] [address] Apr, [facility] [address] [facility] [id number] [address] [place] [address] Apr, Physical exam Z00.00 [facility] [address] [id number] [address] [place] [address] 17 Apr, 2015 [facility] [address] [id number] [address] [place] [address] Mar, Sinusitis J32.9 [facility] [address] [facility] [id number] [address] [place] [address] 04 Jan, 2015 Well woman exam (no gynecolo gical exam) Z00.00 [facility] [address] [id number] [address] [place] [address] 14 Jun, 2014 [facility] [address] [id number] [address] [place] [address] 13 Jun, 2014 [facility] [address] [id number] [address] [place] [address] 11 May, 2014 [facility] [address] [id number] [address] [place] [address] 11 May, 2014 [facility] [address] [id number] [address] [place] [address] Jan, [facility] [address] [id number] [address] [place] [address], [place] [address] Jan, [facility] [address] [id number] [address] [place] [address], [place] [address] Jan, [facility] [address] [id number] [address] [place] [address], [place] [address] Jan, [facility] [address] [id number] [address] [place] [address], [place] [address] Jan, [facility] [address] [id number] [address] [place] [address], [place] [address] July, [facility] [address] [id number] [address] [place] [address], [place] [address] July, [facility] [address] [id number] [address] [place] [address], [place] [address] May, [facility] [address] [id number] [address] [place] [address], [place] [address] May, [facility] [address] [id number] [address] [place] [address], [place] [address] May, [facility] [address] [id number] [address] [place] [address], [place] [address] May, [facility] [address] [id number] [address] [place] [address], [place] [address] May, [facility] [address] [id number] [address] [place] [address], [place] [address] May, [facility] [address] [id number] [address] [place] [address], [place] [address] Dec, [facility] [address] [id number] [address] [place] [address], [place] [address] Dec, [facility] [address] [id number] [address] [place] [address], [place] [address] Dec, [facility] [address] [id number] [address] [place] [address], [place] [address] 16 Dec, 2012 [facility] [address] [id number] [address] [place] [address], [place] [address] 14 Dec, 2012 [facility] [address] [id number] [address] [place] [address], [place] [address] Nov, [facility] [address] [id number] [address] [place] [address], [place] [address] Nov, [facility] [address] [id number] [address] [place] [address], [place] [address] 30 Sep, 2012 [facility] [address] [id number] [address] [place] [address], [place] [address] Sep, [facility] [address] [id number] [address] [place] [address], [place] [address] Sep, [facility] [address] [id number] [address] [place] [address], [place] [address] Sep, [facility] [address] [id number] [address] [place] [address], [place] [address] Jan, [facility] [address] [id number] [address] [place] [address], [place] [address] Jan, [facility] [address] [id number] [address] [place] [address], [place] [address] Dec, [facility] [address] [id number] [address] [place] [address], [place] [address] Dec, [facility] [address] [id number] [address] [place] [address], [place] [address] Dec, [facility] [address] [id number] [address] [place] [address], [place] [address] Oct, [facility] [address] [id number] [address] [place] [address], [place] [address] Aug, [facility] [address] [id number] [address] [place] [address], [place] [address] July, [facility] [address] [id number] [address] [place] [address] July, [facility] [address] [id number] [address] [place] [address] Mar, [facility] [address] [id number] [address] [place] [address] Jan, [facility] [address] [id number] [address] [place] [address] Dec, [facility] [address] [id number] [address] [place] [address] Dec, [facility] [address] [id number] [address] [place] [address] Dec, [facility] [address] [id number] [address] [place] [phone] Oct, [facility] [address] [id number] [address] [place] [address] Feb, [facility] [address] [id number] [address] [place] [id number] Feb, [facility] [address] [id number] [address] [place] [address] Jan, IMMUNIZATIONS No Known Immunizations SOCIAL HISTORY Never Assessed REASON FOR VISIT PLAN OF CARE VITAL SIGNS Height 61 in 2014-05-18 Weight 108.4 lbs 2014-05-18 Temperature 98.3 degrees Fahrenheit 2014-05-18 Heart Rate 80 bpm 2014-05-18 Respiratory Rate 16 2014-05-18 Blood pressure systolic 130 mmHg 2014-05-18 Blood pressure diastolic 90 mmHg 2014-05-18 MEDICATIONS Unknown Medications RESULTS No Results PROCEDURES No Known procedures INSTRUCTIONS MEDICATIONS ADMINISTERED No Known Medications MEDICAL (GENERAL) HISTORY Type Description Date Medical History IBS Surgical History breast augmentation Hospitalization History surgeries
--- OUTSIDE RECORDS SUMMARY | 2019-09-10 16:37 | XMS REPORT ---
Author Author Karina Conteh Organization [facility] Address [address] [place] [address] Care Team Providers Care Material Processor Name Role Phone CHRISTINA Conteh Unavailable PROBLEMS Type Condition ICD9-CM Code [id number] Code Onset Dates Condition S tatus SNOMED Code Problem Seasonal allergic rhinitis due to other allergic trigger J30.89 Active 258797908 Problem Anxiety F41.9 Active 42123523 Problem Well woman exam (no gynecological exam) Z00.00 Active 826944724 Problem Physical exam Z00.00 Active 309985 008 ALLERGIES No Information ENCOUNTERS Encounter Location Date Diagnosis [place] [id number] [facility] [id number] [address] [place] [address] Oct, [address] [address] May, [place] [address] [facility] [id number] [address] [place] [address] May, Family planning Z30.09 and W ell woman exam with routine gynecological exam Z01.419 [place] [address] [address] [facility] [id number] [address] [place] [address] May, [facility] [address] [facility] [id number] [address] [place] [address] Apr, [facility] [address] [facility] [id number] [address] [place] [address] Mar, Routine gynecological examin ation Z01.419 [facility] [address] [facility] [id number] [address] [place] [address] Feb, [place] [address] [facility] [id number] [address] [place] [address] July, Wrist pain, left M25.532 and Anxiety F41.9 [facility] [place] [address] [address] [place] [id number] [address] [place] [address] Feb, Other viral agents as the ca use of diseases classified elsewhere B97.89 and Acute upper respiratory infection, unspecified J06.9 [place] [address] [address] [place] [id number] [place] [address] Feb, Well woman exam with routine gynecological exam Z01.419 and Breast cancer screening Z12.39 [facility] [place] [address] [address] Feb, Seasonal allergic rhinitis d ue to other allergic trigger J30.89 [place] [address] [address] Feb, [facility] [place] [address] [address] Feb, [place] [address] [address] Jan, [address] [address] Oct, Abdominal bloating R14.[address] [address] Aug, Allergic reaction caused by a drug, initial encounter T78.40XA and Spider bite wound, accidental or unintentional, sequela T63.301S [facility]ARE [facility] N [address] [place] [address] Aug, [place] [address] [address] Aug, [facility] [place] [address] [place] [id number] [place] [address] Aug, Insect bite, initial encount er W57.XXXA [address] [address] July, Nevus of back D22.5 and Bloa ting R14.0 [facility] [address] [id number] [address] [place] [address] July, Nevus of back D22.5 and Athl etes foot B35.3 [facility] [address] [id number] [address] [place] [address] Jun, Bloating R14.0 and Nevus of back D22.5 [facility] [address] [id number] [address] [place] [address] May, [facility] [address] [id number] [address] [place] [address] Apr, [facility] [address] [facility] [id number] [address] [place] [address] Apr, Physical exam Z00.00 [facility] [address] [id number] [address] [place] [address] 17 Apr, 2015 [facility] [address] [id number] [address] [place] [address] Mar, Sinusitis J32.9 [facility] [address] [facility] [id number] [address] [place] [address] 04 Jan, 2015 Well woman exam (no gynecolo gical exam) Z00.00 [facility] [address] [id number] [address] [place] [address] 14 Jun, 2014 [facility] [address] [id number] [address] [place] [address] 13 Jun, 2014 [facility] [address] [id number] [address] [place] [address] 11 May, 2014 [facility] [address] [id number] [address] [place] [address] 11 May, 2014 [facility] [address] [id number] [address] [place] [address] Jan, [facility] [address] [id number] [address] [place] [address], [place] [address] Jan, [facility] [address] [id number] [address] [place] [address], [place] [address] Jan, [facility] [address] [id number] [address] [place] [address], [place] [address] Jan, [facility] [address] [id number] [address] [place] [address], [place] [address] Jan, [facility] [address] [id number] [address] [place] [address], [place] [address] July, [facility] [address] [id number] [address] [place] [address], [place] [address] July, [facility] [address] [id number] [address] [place] [address], [place] [address] May, [facility] [address] [id number] [address] [place] [address], [place] [address] May, [facility] [address] [id number] [address] [place] [address], [place] [address] May, [facility] [address] [id number] [address] [place] [address], [place] [address] May, [facility] [address] [id number] [address] [place] [address], [place] [address] May, [facility] [address] [id number] [address] [place] [address], [place] [address] May, [facility] [address] [id number] [address] [place] [address], [place] [address] Dec, [facility] [address] [id number] [address] [place] [address], [place] [address] Dec, [facility] [address] [id number] [address] [place] [address], [place] [address] Dec, [facility] [address] [id number] [address] [place] [address], [place] [address] 16 Dec, 2012 [facility] [address] [id number] [address] [place] [address], [place] [address] 14 Dec, 2012 [facility] [address] [id number] [address] [place] [address], [place] [address] Nov, [facility] [address] [id number] [address] [place] [address], [place] [address] Nov, [facility] [address] [id number] [address] [place] [address], [place] [address] 30 Sep, 2012 [facility] [address] [id number] [address] [place] [address], [place] [address] Sep, [facility] [address] [id number] [address] [place] [address], [place] [address] Sep, [facility] [address] [id number] [address] [place] [address], [place] [address] Sep, [facility] [address] [id number] [address] [place] [address], [place] [address] Jan, [facility] [address] [id number] [address] [place] [address], [place] [address] Jan, [facility] [address] [id number] [address] [place] [address], [place] [address] Dec, [facility] [address] [id number] [address] [place] [address], [place] [address] Dec, [facility] [address] [id number] [address] [place] [address], [place] [address] Dec, [facility] [address] [id number] [address] [place] [address], [place] [address] Oct, [facility] [address] [id number] [address] [place] [address], [place] [address] Aug, [facility] [address] [id number] [address] [place] [address], [place] [address] July, [facility] [address] [id number] [address] [place] [address] July, [facility] [address] [id number] [address] [place] [address] Mar, [facility] [address] [id number] [address] [place] [address] Jan, [facility] [address] [id number] [address] [place] [address] Dec, [facility] [address] [id number] [address] [place] [address] Dec, [facility] [address] [id number] [address] [place] [address] Dec, [facility] [address] [id number] [address] [place] [address] Oct, [facility] [address] [id number] [address] [place] [address] Feb, [facility] [address] [id number] [address] [place] [address] Feb, [facility] [address] [id number] [address] [place] [address] Jan, IMMUNIZATIONS No Known Immunizations SOCIAL HISTORY Never Assessed REASON FOR VISIT PLAN OF CARE VITAL SIGNS Height 61 in 2014-01-12 Weight 109.7 lbs 2014-01-12 Temperature 97.6 degrees Fahrenheit 2014-01-12 Blood pressure systolic 118 mmHg 2014-01-12 Blood pressure diastolic 68 mmHg 2014-01-12 MEDICATIONS Unknown Medications RESULTS No Results PROCEDURES Procedure Date Ordered Result Body Site SCR PAP SMER;NEW PT OBTAIN PREP&CONVY-LAB Jan 12, 2014 CYTOPATH C/V AUTO FLUID REDO Jan 12, 2014 INSTRUCTIONS MEDICATIONS ADMINISTERED No Known Medications MEDICAL (GENERAL) HISTORY Type Description Date Medical History IBS Surgical History breast augmentation Hospitalization History surgeries
--- OUTSIDE RECORDS SUMMARY | 2019-09-10 16:37 | XMS REPORT ---
Author Author Karina DELVALLE [facility] MA[facility] Address [address] [place] [address] Care Team Providers Care Dispensary Technician Name Role Phone BALWINDER DELVALLE Unavailable PROBLEMS Type Condition ICD9-CM Code YCO49-GU Code Onset Dates Condition S tatus SNOMED Code Problem Seasonal allergic rhinitis due to other allergic trigger J30.89 Active 409542472 Problem Anxiety F41.9 Active 72147195 Problem Well woman exam (no gynecological exam) Z00.00 Active 277501696 Problem Physical exam Z00.00 Active 728863 008 ALLERGIES No Information ENCOUNTERS Encounter Location Date Diagnosis [place] [address] [address] 03 Jun, 2019 [place] [address] [address] May, [place] [address] [address] Nov, Ganglion cyst of dorsum of right wrist M 67.431 ; Tinea versicolor B36.0 ; Screening for diabetes mellitus Z13.1 ; Screening for lipoid disorders Z13.220 and Screening for thyroid disorder Z13.29 [place] [address] [address] Oct, Screening for thyroid disorder Z13.29 ; Screening for lipoid disorders Z13.220 ; Tinea versicolor B36.0 and Screening for diabetes mellitus Z13.1 [place] [address] [address] Oct, Ganglion cyst of dorsum of right wrist M 67.431 ; Tinea versicolor B36.0 ; Screening for diabetes mellitus Z13.1 ; Screening for lipoid disorders Z13.220 and Screening for thyroid disorder Z13.[address] [place] [address] May, [place] [address] [address] May, Family planning Z30.09 and Well woman ex am with routine gynecological exam Z01.419 [place] [address] [address] May, [place] [address] [address] Apr, [place] [address] [address] Mar, Routine gynecological examination Z01.41 9 [place] [address] [address] Feb, [place] [address] [address] July, Wrist pain, left M25.532 and Anxiety F41 .9 [facility]ALK IN [place] [id number] [address] [place] [address] Feb, Other viral agents as the ca use of diseases classified elsewhere B97.89 and Acute upper respiratory infection, unspecified J06.9 [place] [address] [address] Feb, Well woman exam with routine gynecologic al exam Z01.419 and Breast cancer screening Z12.39 [facility] [address] [place] [address] [id number] [place] [address] Feb, Seasonal allergic rhinitis d ue to other allergic trigger J30.[address] [address] Feb, [facility]ARE [address] [place] [id number] [place] [address] Feb, [place] [address] [address] Jan, [facility] [address] [address] Oct, Abdominal bloating R14.0 [place] [address] [address] Aug, Allergic reaction caused by a drug, init ial encounter T78.40XA and Spider bite wound, accidental or unintentional, sequela T63.301S [facility] [address] [facility] [id number] [place] [address] Aug, [place] [address] [address] Aug, [facility] [address] [facility] [id number] [place] [address] Aug, Insect bite, initial encount er W57.XXXA [place] [address] [address] July, Nevus of back D22.5 and Bloating R14.0 [place] [address] [address] July, Nevus of back D22.5 and Athletes foot B3 5.3 [place] [address] [address] Jun, Bloating R14.0 and Nevus of back D22.5 [place] [address] [address] May, [place] [address] [address] Apr, [place] [address] [address] Apr, Physical exam Z00.00 [place] [address] [address] Apr, [place] [address] [address] Mar, Sinusitis J32.9 [facility] [address] [place] [id number] [place] [address] Jan, Well woman exam (no gynecological exam) Z00.00 [facility] [address] [place] [id number] [place] [address] 14 Jun, 2014 [facility] [address] [place] [id number] [place] [address] 13 Jun, 2014 [facility] [address] [place] [id number] [place] [address] May, [facility] [address] [place] [id number] [place] [address] May, [facility] [address] [place] [id number] [place] [address] Jan, [facility] [address] [place] [id number] [place] [address] Jan, [facility] [address] [place] [id number] [place] [address] Jan, [facility] [address] [place] [id number] [place] [address] Jan, [facility] [address] [place] [id number] [place] [address] Jan, [facility] [address] [place] [id number] [place] [address] July, [facility] [address] [place] [id number] [place] [address] July, [facility] [address] [place] [id number] [place] [address] May, [facility] [address] [place] [id number] [place] [address] May, [facility] [address] [place] [id number] [place] [address] May, [facility] [address] [place] [id number] [place] [address] May, [facility] [address] [facility] [id number] [place] [address] May, [facility] [address] [id number] [place] [address] May, [facility] [address] [id number] [place] [address] 16 Dec, 2012 [facility] [address] [id number] [place] [address] 16 Dec, 2012 [facility] [address] [id number] [place] [address] Dec, [facility] [address] [id number] [place] [address] Dec, [facility] [address] [id number] [place] [address] 14 Dec, 2012 [facility] [address] [id number] [place] [address] Nov, [facility] [address] [id number] [place] [address] Nov, [facility] [address] [id number] [place] [address] 30 Sep, 2012 [facility] [address] [id number] [place] [address] 29 Sep, 2012 [facility] [address] [id number] [place] [address] Sep, [facility] [address] [id number] [place] [address] Sep, [facility] [address] [id number] [place] [address] Jan, [facility] [address] [id number] [place] [address] Jan, [facility] [address] [id number] [place] [address] Dec, [facility] [address] [id number] [place] [address] Dec, [facility] [address] [place] [id number] [place] [address] Dec, [facility] [address] [place] [id number] [place] [address] Oct, [facility] [address] [place] [id number] [place] [address] Aug, [facility] [address] [place] [id number] [place] [address] July, [facility] [address] [place] [id number] [place] [address] July, [facility] [address] [place] [id number] [place] [address] Mar, [facility] [address] [place] [id number] [place] [address] Jan, [facility] [address] [place] [id number] [place] [address] Dec, [facility] [address] [place] [id number] [place] [address] Dec, [facility] [address] [place] [id number] [place] [address] Dec, [facility] [address] [place] [id number] [place] [address] Oct, [facility] [address] [place] [id number] [place] [address] Feb, [facility] [address] [place] [id number] [place] [address] Feb, [facility] [address] [place] [id number] [place] [address] Jan, IMMUNIZATIONS No Known Immunizations SOCIAL HISTORY Never Assessed REASON FOR VISIT Requests return call PLAN OF CARE VITAL SIGNS MEDICATIONS Medication Instructions Dosage Frequency Start Date End Date Duration S vincent Pelletiero 0.15-30 MG-MCG Orally Once a day 1 tablet 24h May, 12 months Active RESULTS No Results PROCEDURES No Known procedures INSTRUCTIONS MEDICATIONS ADMINISTERED No Known Medications MEDICAL (GENERAL) HISTORY Type Description Date Medical History IBS Surgical History breast augmentation Hospitalization History surgeries
--- OUTSIDE RECORDS SUMMARY | 2019-09-10 16:37 | XMS REPORT ---
Author Author Karina Sage Organization [facility] Address [address] [place] [address] Care Team Providers Care Rod Welder Name Role Phone LORETO Sage Unavailable PROBLEMS Type Condition ICD9-CM Code UFC52-US Code Onset Dates Condition S tatus SNOMED Code Problem Seasonal allergic rhinitis due to other allergic trigger J30.89 Active 855222354 Problem Anxiety F41.9 Active 02291901 Problem Well woman exam (no gynecological exam) Z00.00 Active 442599418 Problem Physical exam Z00.00 Active 044845 008 ALLERGIES No Information ENCOUNTERS Encounter Location Date Diagnosis [address] [address] Jun, [address] [address] May, [address] [address] Nov, Ganglion cyst of dorsum of right wrist M 67.431 ; Tinea versicolor B36.0 ; Screening for diabetes mellitus Z13.1 ; Screening for lipoid disorders Z13.220 and Screening for thyroid disorder Z13.[address] [address] Oct, Screening for thyroid disorder Z13.29 ; Screening for lipoid disorders Z13.220 ; Tinea versicolor B36.0 and Screening for diabetes mellitus Z13.1 [place] [address] [address] Oct, Ganglion cyst of dorsum of right wrist M 67.431 ; Tinea versicolor B36.0 ; Screening for diabetes mellitus Z13.1 ; Screening for lipoid disorders Z13.220 and Screening for thyroid disorder Z13.29 [facility] [address] [place] [address] May, [place] [address] [address] May, Family planning Z30.09 and Well woman ex am with routine gynecological exam Z01.419 [place] [address] [address] 05 May, 2018 [place] [address] [address] Apr, [place] [address] [address] Mar, Routine gynecological examination Z01.41 9 [place] [address] [address] Feb, [place] [address] [address] July, Wrist pain, left M25.532 and Anxiety F41 .9 [facility] [address] [place] [id number] [address] [place] [address] Feb, Other viral agents as the ca use of diseases classified elsewhere B97.89 and Acute upper respiratory infection, unspecified J06.9 [place] [address] [place] [id number] [place] [address] Feb, Well woman exam with routine gynecologic al exam Z01.419 and Breast cancer screening Z12.39 [facility] [address] [facility] [id number] [address] [place] [address] Feb, Seasonal allergic rhinitis d ue to other allergic trigger J30.89 [place] [address] [address] Feb, [facility] [address] [facility] [id number] [address] [place] [address] Feb, [place] [address] [address] Jan, [facility] [address] [address] Oct, Abdominal bloating R14.0 [place] [address] [address] Aug, Allergic reaction caused by a drug, init ial encounter T78.40XA and Spider bite wound, accidental or unintentional, sequela T63.301S [facility] [address] [facility] [id number] [place] [address] Aug, [place] [address] [address] Aug, [facility] [address] [facility] [id number] [place] [address] Aug, Insect bite, initial encount er W57.XXXA [place] [address] [address] July, Nevus of back D22.5 and Bloating R14.0 [place] [address] [address] July, Nevus of back D22.5 and Athletes foot B3 5.3 [place] [address] [address] Jun, Bloating R14.0 and Nevus of back D22.5 [place] [address] [address] May, [place] [address] [address] Apr, [place] [address] [address] Apr, Physical exam Z00.00 [place] [address] [address] 17 Apr, 2015 [place] [address] [place] [address] 06 Mar, 2015 Sinusitis J32.9 [facility] [address] [place] [id number] [place] [address] Jan, Well woman exam (no gynecological exam) Z00.00 [facility] [address] [place] [id number] [place] [address] 14 Jun, 2014 [facility] [address] [address] 13 Jun, 2014 [facility] [address] [place] [id number] [place] [address] May, [facility] [address] [place] [id number] [place] [address] May, [facility] [address] [place] [id number] [place] [address] Jan, [facility] [address] [place] [id number] [place] [address] Jan, [facility] [address] [place] [id number] [place] [address] Jan, [facility] [address] [place] [id number] [place] [address] Jan, [facility] [address] [place] [id number] [place] [address] Jan, [facility] [address] [place] [id number] [place] [address] July, [facility] [address] [place] [id number] [place] [address] July, [facility] [address] [place] [id number] [place] [address] May, [facility] [address] [place] [id number] [place] [address] May, [facility] [address] [place] [id number] [place] [address] May, [facility] [address] [place] [id number] [place] [address] May, [facility] [address] [facility] [id number] [place] [address] May, [facility] [address] [id number] [place] [address] May, [facility] [address] [id number] [place] [address] Dec, [facility] [address] [id number] [place] [address] 16 Dec, 2012 [facility] [address] [id number] [place] [address] Dec, [facility] [address] [id number] [place] [address] Dec, [facility] [address] [id number] [place] [address] Dec, [facility] [address] [id number] [place] [address] Nov, [facility] [address] [id number] [place] [address] Nov, [facility] [address] [id number] [place] [address] 30 Sep, 2012 [facility] [address] [id number] [place] [address] Sep, [facility] [address] [id number] [place] [address] Sep, [facility] [address] [id number] [place] [address] Sep, [facility] [address] [id number] [place] [address] Jan, [facility] [address] [id number] [place] [address] Jan, [facility] [address] [id number] [place] [address] Dec, [facility] [address] [place] [id number] [place] [address] Dec, [facility] [address] [place] [id number] [place] [address] Dec, [facility] [address] [id number] [place] [address] Oct, [facility] [address] [place] [id number] [place] [address] Aug, [facility] [address] [place] [id number] [place] [address] July, [facility] [address] [place] [id number] [place] [address] July, [facility] [address] [place] [id number] [place] [address] Mar, [facility] [address] [place] [id number] [place] [address] Jan, [facility] [address] [place] [id number] [place] [address] Dec, [facility] [address] [place] [id number] [place] [address] Dec, [facility] [address] [place] [id number] [place] [address] Dec, [facility] [address] [id number] [place] [address] Oct, [facility] [address] [place] [id number] [place] [address] Feb, [facility] [address] [id number] [place] [address] Feb, [facility] [address] [place] [id number] [place] [address] Jan, IMMUNIZATIONS No Known Immunizations SOCIAL HISTORY Never Assessed REASON FOR VISIT PLAN OF CARE VITAL SIGNS MEDICATIONS Unknown Medications RESULTS No Results PROCEDURES No Known procedures INSTRUCTIONS MEDICATIONS ADMINISTERED No Known Medications MEDICAL (GENERAL) HISTORY Type Description Date Medical History IBS Surgical History breast augmentation Hospitalization History surgeries
--- OUTSIDE RECORDS SUMMARY | 2019-09-10 16:38 | XMS REPORT ---
Author Author Karina GRANT Organization [facility] Address [address] [place] [address] Care Team Providers Care Baby Sitter Name Role Phone MARIELENA GRANT Unavailable PROBLEMS Type Condition ICD9-CM Code BWK60-MV Code Onset Dates Condition S tatus SNOMED Code Problem Anxiety F41.9 Active 33501737 Problem Seasonal allergic rhinitis due to other allergic trigger J30.89 Active 004333551 Problem Physical exam Z00.00 Active 438665 008 Problem Well woman exam (no gynecological exam) Z00.00 Active 341232877 ALLERGIES Substance Reaction Event Type Date Status Bactrim hives Drug Allergy Feb, Active SOCIAL HISTORY No smoking Hx information available PLAN OF CARE Activity Details Follow Up 1 Year, prn Reason: VITAL SIGNS Height 61 in 2016-03-04 Weight 110.9 lbs 2016-03-04 Temperature 98.7 degrees Fahrenheit 2016-03-04 Heart Rate 68 bpm 2016-03-04 Respiratory Rate 18 2016-03-04 BMI 20.95 kg/m2 2016-03-04 Blood pressure systolic 122 mmHg 2016-03-04 Blood pressure diastolic 77 mmHg 2016-03-04 MEDICATIONS Medication Instructions Dosage Frequency Start Date End Date Duration S tatus PredniSONE 20 MG Orally Once a day 2 tablet 24h Feb, Feb, 5 days Active Zyrtec Allergy 10 MG Orally Once a day 1 tablet 24h Feb, 6 22 Mar, 2016 30 day(s) Active Fluticasone Propionate 50 MCG/ACT Nasally Once a day 1 spray in each nostril 24h Feb, 30 day(s) Active Alleman-28 0.15-30 MG-MCG Orally Once a day 1 tablet 24h 28 Active RESULTS Name Result Date Reference Range TRICHOMONAS (IN HOUSE) 2016-03-04 TRICHOMONAS Negative Control + Lot # [id number] Exp date BACTERIAL VAGINOSIS (IN HOUSE) 2016-03-04 RESULTS negative Control + Lot # [id number] Exp date CULTURE, GENITAL 2016-03-04 Genital Culture, Routine Final report Result 1 Yeast isolated. Result 2 PAP TEST, HPV IF ASCUS 2016-03-04 DIAGNOSIS: Recommendation: Specimen adequacy: Clinician provided ICD10: Performed by: Electronically signed by: . . Pathologist provided ICD10: Note: . HPV, high-risk Negative Negative PDF Report 2016-03-04 PDF Report1 LCLS PROCEDURES Procedure Date Ordered Related Diagnosis Body Site CULTURE, BACTERIA, OTHER Mar 04, 2016 No Charge Mar 04, 2016 HENDERSON VAG, DNA, DIR PROBE Mar 04, 2016 TRICHOMONAS ASSAY W/OPTIC Mar 04, 2016 Preventive Care Est Pt. Age 18-39 Mar 04, 2016 SPECIMEN HANDLING Mar 04, 2016 IMMUNIZATIONS No Known Immunizations
--- OUTSIDE RECORDS SUMMARY | 2019-09-10 16:38 | XMS REPORT ---
Author Author Karina GRANT Organization [employer] Address Unknown Phone Unavailable Care Team Providers Care Counter Manager Name Role Phone MARIELENA GRANT CP Unavailable Allergies, Adverse Reactions, Alerts Substance Reaction Event Type N.K.D.A. Info Not Available Non Drug Allergy Problems Problem Type Condition Code Onset Dates Condition Statu s Problem Routine general medical examination at [facility] V70.0 Active Problem Cough 786.2 Active Problem Dizziness and giddiness 780.4 Acti ve Assessment Well woman exam (no gynecological exam) Z00.00 Active Problem Other general counseling and advice for contrace ptive management V25.09 Active Problem Pityriasis versicolor 111.0 Active Problem Urinary tract infection, site not specified 599.0 Active Problem Well woman exam (no gynecological exam) Z00.00 Active Problem Unspecified breast screening V76.10 Active Problem Allergic rhinitis due to pollen 477.0 Active Problem Hand, foot, and mouth disease 074.3 Active Problem General counseling for prescription of oral contracept devendra V25.01 Active Medications Medication Code System Code Instructions Start Date End Date Status Dosage Felipa-28 NDC [address]-56 0.15-30 MG-MCG Orally Once a day Jan 11, 2015 1 tablet Felipa NDC 0 0.15-30 mg-mcg Feb 05, 2012 May 26, 2013 take 1 tablet by oral route once daily Procedures Procedure Coding System Code Date Preventive Care Est Pt. Age 18-39 CPT-4 02570 Jan 11, 2015 URINE TEST CPT-4 54782 Jan 11, 201 5 Vital Signs Date/Time: Jan 11, 2015 Temperature 98.4 F Weight 106 lbs Height 61 in BMI 20.03 Index Blood Pressure Diastolic 64 mmHg Blood Pressure Systolic 102 mmHg Cardiac Monitoring Heart Rate 82 bpm Results Name Result Date Reference Range Unit Abnormali ty Flag TEST, URINE (IN HOUSE) Summary Purpose [employer] Submission
--- OUTSIDE RECORDS SUMMARY | 2019-09-10 16:38 | XMS REPORT ---
Author Author Karina Valdes Doctor Organization [facility] Address Unknown Phone Unavailable Care Team Providers Care Glue Size Machine Operator Name Role Phone Migration, Doctor Unavailable Unavailable PROBLEMS Type Condition ICD9-CM Code [id number] Code Onset Dates Condition S tatus SNOMED Code Problem Seasonal allergic rhinitis due to other allergic trigger J30.89 Active 275508460 Problem Anxiety F41.9 Active 43571105 Problem Well woman exam (no gynecological exam) Z00.00 Active 403425588 Problem Physical exam Z00.00 Active 373177 008 ALLERGIES No Information ENCOUNTERS Encounter Location Date Diagnosis [address] [address] May, [facility] [address] [facility] [id number] [address] [place] [address] May, Family planning Z30.09 and W ell woman exam with routine gynecological exam Z01.419 [facility] [address] [facility] [id number] [address] [place] [address] May, [facility] [address] [facility] [id number] [address] [place] [address] Apr, [facility] [address] [facility] [id number] [address] [place] [address] Mar, Routine gynecological examin ation Z01.419 [facility] [address] [id number] [address] [place] [address] Feb, [facility] [address] [facility] [id number] [address] [place] [address] July, Wrist pain, left M25.532 and Anxiety F41.9 [facility] [address] [facility] [id number] [address] [place] [address] Feb, Other viral agents as the ca use of diseases classified elsewhere B97.89 and Acute upper respiratory infection, unspecified J06.9 [facility] [address] [address] 26 Feb, 2016 Well woman exam with routine gynecological exam Z01.419 and Breast cancer screening Z12.39 [facility] [place] [address] [place] [id number] [place] [address] 23 Feb, 2016 Seasonal allergic rhinitis d ue to other allergic trigger J30.89 [place] [address] [address] 19 Feb, 2016 [facility] [place] [address] [address] Feb, [place] [address] [address] Jan, [place] [address] [address] Oct, Abdominal bloating R14.0 [place] [address] [address] Aug, Allergic reaction caused by a drug, initial encounter T78.40XA and Spider bite wound, accidental or unintentional, sequela T63.301S [facility] [place] [address] [address] Aug, [place] [address] [address] Aug, [facility] [place] [address] [address] Aug, Insect bite, initial encount er W57.XXXA [address] [address] July, Nevus of back D22.5 and Bloa ting R14.[address] [address] July, Nevus of back D22.5 and Athl etes foot B35.3 [facility] [address] [id number] [address] [place] [address] Jun, Bloating R14.0 and Nevus of back D22.5 [facility] [address] [id number] [address] [place] [address] May, [facility] [address] [id number] [address] [place] [address] Apr, [facility] [address] [id number] [address] [place] [address] Apr, Physical exam Z00.00 [facility] [address] [id number] [address] [place] [address] 17 Apr, 2015 [facility] [address] [facility] [id number] [address] [place] [address] Mar, Sinusitis J32.9 [facility] [address] [id number] [address] [place] [address] Jan, Well woman exam (no gynecolo gical exam) Z00.00 [facility] [address] [id number] [address] [place] [address] 14 Jun, 2014 [facility] [address] [facility] [id number] [address] [place] [address] 13 Jun, 2014 [facility] [address] [id number] [address] [place] [address] May, [facility] [address] [id number] [address] [place] [address] May, [facility] [address] [id number] [address] [place] [address] Jan, [facility] [address] [id number] [address] [place] [address] Jan, [facility] [address] [id number] [address] [place] [address] Jan, [facility] [address] [id number] [address] [place] [address], [place] [address] Jan, [facility] [address] [id number] [address] [place] [address], [place] [address] Jan, [facility] [address] [id number] [address] [place] [address], [place] [address] July, [facility] [address] [id number] [address] [place] [address], [place] [address] July, [facility] [address] [id number] [address] [place] [address], [place] [address] May, [facility] [address] [id number] [address] [place] [address], [place] [address] May, [facility] [address] [id number] [address] [place] [address], [place] [address] May, [facility] [address] [id number] [address] [place] [address], [place] [address] May, [facility] [address] [id number] [address] [place] [address], [place] [address] May, [facility] [address] [id number] [address] [place] [address], [place] [address] May, [facility] [address] [id number] [address] [place] [address], [place] [address] 16 Dec, 2012 [facility] [address] [id number] [address] [place] [address], [place] [address] 16 Dec, 2012 [facility] [address] [id number] [address] [place] [address], [place] [address] 16 Dec, 2012 [facility] [address] [id number] [address] [place] [address], [place] [address] 16 Dec, 2012 [facility] [address] [id number] [address] [place] [address], [place] [address] 14 Dec, 2012 [facility] [address] [id number] [address] [place] [address], [place] [address] Nov, [facility] [address] [id number] [address] [place] [address], [place] [address] Nov, [facility] [address] [id number] [address] [place] [address], [place] [address] Sep, [facility] [address] [id number] [address] [place] [address], [place] [address] Sep, [facility] [address] [id number] [address] [place] [address], [place] [address] Sep, [facility] [address] [id number] [address] [place] [address], [place] [address] Sep, [facility] [address] [id number] [address] [place] [address], [place] [address] Jan, [facility] [address] [id number] [address] [place] [address], [place] [address] Jan, [facility] [address] [id number] [address] [place] [address], [place] [address] Dec, [facility] [address] [id number] [address] [place] [address], [place] [address] Dec, [facility] [address] [id number] [address] [place] [address], [place] [address] Dec, [facility] [address] [id number] [address] [place] [address], [place] [address] Oct, [facility] [address] [id number] [address] [place] [address], [place] [address] Aug, [facility] [address] [id number] [address] [place] [address], [place] [address] July, [facility] [address] [id number] [address] [place] [address], [place] [address] July, [facility] [address] [id number] [address] [place] [address], [place] [address] Mar, [facility] [address] [id number] [address] [place] [address] Jan, [facility] [address] [id number] [address] [place] [address] Dec, [facility] [address] [id number] [address] [place] [id number] Dec, [facility] [address] [id number] [address] [place] [phone] Dec, [facility] [address] [id number] [address] [place] [id number] Oct, [facility] [address] [id number] [address] [place] [id number] Feb, [facility] [address] [id number] [address] [place] [id number] Feb, [facility] [address] [id number] [address] [place] [id number] Jan, IMMUNIZATIONS No Known Immunizations SOCIAL HISTORY Never Assessed REASON FOR VISIT EMR-[facility] [place] OF CARE VITAL SIGNS MEDICATIONS Unknown Medications RESULTS No Results PROCEDURES No Known procedures INSTRUCTIONS MEDICATIONS ADMINISTERED No Known Medications MEDICAL (GENERAL) HISTORY Type Description Date Medical History IBS Surgical History breast augmentation Hospitalization History surgeries
--- OUTSIDE RECORDS SUMMARY | 2019-09-10 16:38 | XMS REPORT ---
Author Author Karina GRANT Organization [facility] Address [address] [place] [address] Care Team Providers Care Clay Burner Name Role Phone GRANT MARIELENA Unavailable PROBLEMS Type Condition ICD9-CM Code BHE56-EH Code Onset Dates Condition S tatus SNOMED Code Problem Anxiety F41.9 Active 91386852 Problem Seasonal allergic rhinitis due to other allergic trigger J30.89 Active 974637157 Problem Physical exam Z00.00 Active 705312 008 Problem Well woman exam (no gynecological exam) Z00.00 Active 738465883 ALLERGIES Substance Reaction Event Type Date Status Bactrim hives Drug Allergy July, Active SOCIAL HISTORY Never Assessed PLAN OF CARE Activity Details Follow Up 3 Months, prn Reason: VITAL SIGNS Height 61 in 2016-07-10 Weight 108.1 lbs 2016-07-10 Temperature 98.6 degrees Fahrenheit 2016-07-10 Heart Rate 76 bpm 2016-07-10 Respiratory Rate 20 2016-07-10 BMI 20.42 kg/m2 2016-07-10 Blood pressure systolic 128 mmHg 2016-07-10 Blood pressure diastolic 88 mmHg 2016-07-10 MEDICATIONS Medication Instructions Dosage Frequency Start Date End Date Duration S tatus Altavera 0.15-30 MG-MCG Orally Once a day 1 tablet 24h Active Thrive For [employer] Womens - Active RESULTS No Results PROCEDURES No Known procedures IMMUNIZATIONS No Known Immunizations MEDICAL (GENERAL) HISTORY Type Description Date Medical History IBS Surgical History breast augmentation Hospitalization History surgeries
--- OUTSIDE RECORDS SUMMARY | 2019-09-10 16:38 | XMS REPORT ---
Author Author Karina Lord Organization [facility] Address [address] [place] [address] Care Team Providers Care Pickle Sorter Name Role Phone MARIELENA Lord Unavailable PROBLEMS Type Condition ICD9-CM Code XRQ65-[id number] Code Onset Dates Condition S tatus SNOMED Code Problem Anxiety F41.9 Active 44078731 Problem Seasonal allergic rhinitis due to other allergic trigger J30.89 Active 474952577 Problem Physical exam Z00.00 Active 926578 008 Problem Well woman exam (no gynecological exam) Z00.00 Active 867018623 ALLERGIES No Information ENCOUNTERS Encounter Location Date Diagnosis [place] [id number] [address] [place] [address] 12 Apr, 2017 [facility] [address] [place] [id number] [address] [place] [address] Mar, Routine gynecological examin ation Z01.419 [place] [place] [id number] [address] [place] [address] Feb, [place] [address] [place] [id number] [address] [place] [address] July, Wrist pain, left M25.532 and Anxiety F41.9 [facility] [address] [facility] [id number] [address] [place] [address] Feb, Other viral agents as the ca use of diseases classified elsewhere B97.89 and Acute upper respiratory infection, unspecified J06.9 [facility] [address] [facility] [id number] [address] [place] [address] Feb, Well woman exam with routine gynecological exam Z01.419 and Breast cancer screening Z12.39 [facility] [address] [address] Feb, Seasonal allergic rhinitis d ue to other allergic trigger J30.89 [place] [address] [address] Feb, [facility] [address] [address] Feb, [place] [address] [address] Jan, [place] [address] [address] Oct, Abdominal bloating R14.0 [place] [address] [address] Aug, Allergic reaction caused by a drug, initial encounter T78.40XA and Spider bite wound, accidental or unintentional, sequela T63.301S [facility] [address] [address] Aug, [place] [address] [address] Aug, [facility] [address] [address] Aug, Insect bite, initial encount er W57.XXXA [place] [address] [address] July, Nevus of back D22.5 and Bloa ting R14.0 [place] [address] [address] July, Nevus of back D22.5 and Athl etes foot B35.3 [place] [address] [address] Jun, Bloating R14.0 and Nevus of back D22.5 [place] [id number] [place] [address] 10 May, 2015 [facility] [address] [id number] [address] [place] [address] Apr, [facility] [address] [id number] [address] [place] [address] Apr, Physical exam Z00.00 [facility] [address] [id number] [address] [place] [address] 17 Apr, 2015 [facility] [address] [id number] [address] [place] [address] Mar, Sinusitis J32.9 [facility] [address] [id number] [address] [place] [address] Jan, Well woman exam (no gynecolo gical exam) Z00.00 [facility] [address] [id number] [address] [place] [address] 14 Jun, 2014 [facility] [address] [id number] [address] [place] [address] Jun, [facility] [address] [id number] [address] [place] [address] May, [facility] [address] [id number] [address] [place] [address] May, [facility] [address] [id number] [address] [place] [address] Jan, [facility] [address] [id number] [address] [place] [address] Jan, [facility] [address] [id number] [address] [place] [address] Jan, [facility] [address] [id number] [address] [place] [address] Jan, [facility] [address] [id number] [address] [place] [address] Jan, [facility] [address] [id number] [address] [place] [address], [place] [address] July, [facility] [address] [id number] [address] [place] [address], [place] [address] July, [facility] [address] [id number] [address] [place] [address], [place] [address] May, [facility] [address] [id number] [address] [place] [address], [place] [address] May, [facility] [address] [id number] [address] [place] [address], [place] [address] May, [facility] [address] [id number] [address] [place] [address], [place] [address] May, [facility] [address] [id number] [address] [place] [address], [place] [address] May, [facility] [address] [id number] [address] [place] [address], [place] [address] May, [facility] [address] [id number] [address] [place] [address], [place] [address] 16 Dec, 2012 [facility] [address] [id number] [address] [place] [address], [place] [address] 16 Dec, 2012 [facility] [address] [id number] [address] [place] [address], [place] [address] 16 Dec, 2012 [facility] [address] [id number] [address] [place] [address] 16 Dec, 2012 [facility] [address] [id number] [address] [place] [address], [place] [address] 14 Dec, 2012 [facility] [address] [id number] [address] [place] [address], [place] [address] 23 Nov, 2012 [facility] [address] [id number] [address] [place] [address], [place] [address] 23 Nov, 2012 [facility] [address] [id number] [address] [place] [address] Sep, [facility] [address] [id number] [address] [place] [address], [place] [address] Sep, [facility] [address] [id number] [address] [place] [address], [place] [address] Sep, [facility] [address] [id number] [address] [place] [address], [place] [address] Sep, [facility] [address] [id number] [address] [place] [address], [place] [address] Jan, [facility] [address] [id number] [address] [place] [address], [place] [address] Jan, [facility] [address] [id number] [address] [place] [address], [place] [address] Dec, [facility] [address] [id number] [address] [place] [address], [place] [address] Dec, [facility] [address] [id number] [address] [place] [address], [place] [address] Dec, [facility] [address] [id number] [address] [place] [address], [place] [address] Oct, [facility] [address] [id number] [address] [place] [address], [place] [address] Aug, [facility] [address] [id number] [address] [place] [address], [place] [address] July, [facility] [address] [id number] [address] [place] [address], [place] [address] July, [facility] [address] [id number] [address] [place] [address], [place] [address] Mar, [facility] [address] [id number] [address] [place] [address], [place] [address] Jan, [facility] [address] [id number] [address] [place] [address], [place] [address] Dec, [facility] [address] [id number] [address] [place] [address] Dec, [facility] [address] [facility] [id number] [address] [place] [address] Dec, [facility] [address] [facility] [id number] [address] [place] [address] Oct, [facility] [address] [facility] [id number] [address] [place] [address] Feb, [facility] [address] [facility] [id number] [address] [place] [address] Feb, [facility] [address] [facility] [id number] [address] [place] [address] Jan, IMMUNIZATIONS No Known Immunizations SOCIAL HISTORY Never Assessed REASON FOR VISIT Appt request PLAN OF CARE VITAL SIGNS MEDICATIONS Unknown Medications RESULTS No Results PROCEDURES No Known procedures INSTRUCTIONS MEDICATIONS ADMINISTERED No Known Medications MEDICAL (GENERAL) HISTORY Type Description Date Medical History IBS Surgical History breast augmentation Hospitalization History surgeries
--- OUTSIDE RECORDS SUMMARY | 2019-09-10 16:38 | XMS REPORT ---
Author Author Karina Valdes Doctor Organization [facility] Address Unknown Phone Unavailable Care Team Providers Care Resolution Expert Name Role Phone Migration, Doctor Unavailable Unavailable PROBLEMS Type Condition ICD9-CM Code BBE23-HL Code Onset Dates Condition S tatus SNOMED Code Problem Seasonal allergic rhinitis due to other allergic trigger J30.89 Active 668051016 Problem Anxiety F41.9 Active 50111961 Problem Well woman exam (no gynecological exam) Z00.00 Active 215402431 Problem Physical exam Z00.00 Active 231189 008 ALLERGIES No Information ENCOUNTERS Encounter Location Date Diagnosis [address] [address] May, [facility] [address] [facility] [id number] [address] [place] [address] May, Family planning Z30.09 and W ell woman exam with routine gynecological exam Z01.419 [facility] [address] [facility] [id number] [address] [place] [address] May, [facility] [address] [facility] [id number] [address] [place] [address] Apr, [facility] [address] [facility] [id number] [address] [place] [address] Mar, Routine gynecological examin ation Z01.419 [facility] [address] [id number] [address] [place] [address] Feb, [facility] [address] [facility] [id number] [address] [place] [address] July, Wrist pain, left M25.532 and Anxiety F41.9 [facility] [address] [facility] [id number] [address] [place] [address] Feb, Other viral agents as the ca use of diseases classified elsewhere B97.89 and Acute upper respiratory infection, unspecified J06.9 [facility] [address] [address] 26 Feb, 2016 Well woman exam with routine gynecological exam Z01.419 and Breast cancer screening Z12.39 [facility] [place] [address] [place] [id number] [place] [address] 23 Feb, 2016 Seasonal allergic rhinitis d ue to other allergic trigger J30.89 [place] [address] [address] 19 Feb, 2016 [facility] [place] [address] [address] Feb, [place] [address] [address] Jan, [place] [address] [address] Oct, Abdominal bloating R14.0 [place] [address] [address] Aug, Allergic reaction caused by a drug, initial encounter T78.40XA and Spider bite wound, accidental or unintentional, sequela T63.301S [facility] [place] [address] [address] Aug, [place] [address] [address] Aug, [facility] [place] [address] [address] Aug, Insect bite, initial encount er W57.XXXA [address] [address] July, Nevus of back D22.5 and Bloa ting R14.[address] [address] July, Nevus of back D22.5 and Athl etes foot B35.3 [facility] [address] [id number] [address] [place] [address] Jun, Bloating R14.0 and Nevus of back D22.5 [facility] [address] [id number] [address] [place] [address] May, [facility] [address] [id number] [address] [place] [address] Apr, [facility] [address] [id number] [address] [place] [address] Apr, Physical exam Z00.00 [facility] [address] [id number] [address] [place] [address] 17 Apr, 2015 [facility] [address] [facility] [id number] [address] [place] [address] Mar, Sinusitis J32.9 [facility] [address] [id number] [address] [place] [address] Jan, Well woman exam (no gynecolo gical exam) Z00.00 [facility] [address] [id number] [address] [place] [address] 14 Jun, 2014 [facility] [address] [facility] [id number] [address] [place] [address] 13 Jun, 2014 [facility] [address] [id number] [address] [place] [address] May, [facility] [address] [id number] [address] [place] [address] May, [facility] [address] [id number] [address] [place] [address] Jan, [facility] [address] [id number] [address] [place] [address] Jan, [facility] [address] [id number] [address] [place] [address] Jan, [facility] [address] [id number] [address] [place] [address], [place] [address] Jan, [facility] [address] [id number] [address] [place] [address], [place] [address] Jan, [facility] [address] [id number] [address] [place] [address], [place] [address] July, [facility] [address] [id number] [address] [place] [address], [place] [address] July, [facility] [address] [id number] [address] [place] [address], [place] [address] May, [facility] [address] [id number] [address] [place] [address], [place] [address] May, [facility] [address] [id number] [address] [place] [address], [place] [address] May, [facility] [address] [id number] [address] [place] [address], [place] [address] May, [facility] [address] [id number] [address] [place] [address], [place] [address] May, [facility] [address] [id number] [address] [place] [address], [place] [address] May, [facility] [address] [id number] [address] [place] [address], [place] [address] 16 Dec, 2012 [facility] [address] [id number] [address] [place] [address], [place] [address] 16 Dec, 2012 [facility] [address] [id number] [address] [place] [address], [place] [address] 16 Dec, 2012 [facility] [address] [id number] [address] [place] [address], [place] [address] 16 Dec, 2012 [facility] [address] [id number] [address] [place] [address], [place] [address] 14 Dec, 2012 [facility] [address] [id number] [address] [place] [address], [place] [address] Nov, [facility] [address] [id number] [address] [place] [address], [place] [address] Nov, [facility] [address] [id number] [address] [place] [address], [place] [address] Sep, [facility] [address] [id number] [address] [place] [address], [place] [address] Sep, [facility] [address] [id number] [address] [place] [address], [place] [address] Sep, [facility] [address] [id number] [address] [place] [address], [place] [address] Sep, [facility] [address] [id number] [address] [place] [address], [place] [address] Jan, [facility] [address] [id number] [address] [place] [address], [place] [address] Jan, [facility] [address] [id number] [address] [place] [address], [place] [address] Dec, [facility] [address] [id number] [address] [place] [address], [place] [address] Dec, [facility] [address] [id number] [address] [place] [address], [place] [address] Dec, [facility] [address] [id number] [address] [place] [address], [place] [address] Oct, [facility] [address] [id number] [address] [place] [address], [place] [address] Aug, [facility] [address] [id number] [address] [place] [address], [place] [address] July, [facility] [address] [id number] [address] [place] [address], [place] [address] July, [facility] [address] [id number] [address] [place] [address], [place] [address] Mar, [facility] [address] [id number] [address] [place] [address] Jan, [facility] [address] [id number] [address] [place] [address] Dec, [facility] [address] [id number] [address] [place] [address] Dec, [facility] [address] [id number] [address] [place] [address] Dec, [facility] [address] [id number] [address] [place] [address] Oct, [facility] [address] [id number] [address] [place] [address] Feb, [facility] [address] [id number] [address] [place] [address] Feb, [facility] [address] [id number] [address] [place] [address] Jan, IMMUNIZATIONS No Known Immunizations SOCIAL HISTORY Never Assessed REASON FOR VISIT EMR-[facility] PLAN OF CARE VITAL SIGNS MEDICATIONS Unknown Medications RESULTS No Results PROCEDURES No Known procedures INSTRUCTIONS MEDICATIONS ADMINISTERED No Known Medications MEDICAL (GENERAL) HISTORY Type Description Date Medical History IBS Surgical History breast augmentation Hospitalization History surgeries
--- OUTSIDE RECORDS SUMMARY | 2019-09-10 16:38 | XMS REPORT ---
Author Author Karina SALMON Organization [facility] Address [address] [place] [address] Care Team Providers Care Manganese Wheeler Name Role Phone APRIL SALMON Unavailable PROBLEMS Type Condition ICD9-CM Code DSZ50-FG Code Onset Dates Condition S tatus SNOMED Code Problem Anxiety F41.9 Active 51120922 Problem Seasonal allergic rhinitis due to other allergic trigger J30.89 Active 333574915 Problem Physical exam Z00.00 Active 112022 008 Problem Well woman exam (no gynecological exam) Z00.00 Active 260147976 ALLERGIES Substance Reaction Event Type Date Status Bactrim hives Drug Allergy Feb, Active SOCIAL HISTORY No smoking Hx information available PLAN OF CARE Activity Details Follow Up prn Reason: VITAL SIGNS Height 61 in 2016-03-01 Weight 112.4 lbs 2016-03-01 Temperature 97.7 degrees Fahrenheit 2016-03-01 Heart Rate 64 bpm 2016-03-01 Respiratory Rate 16 2016-03-01 BMI 21.24 kg/m2 2016-03-01 Blood pressure systolic 94 mmHg 2016-03-01 Blood pressure diastolic 62 mmHg 2016-03-01 MEDICATIONS Medication Instructions Dosage Frequency Start Date End Date Duration S tatus [place]-28 0.15-30 MG-MCG Orally Once a day 1 tablet 24h 28 Active Zyrtec Allergy 10 MG Orally Once a day 1 tablet 24h Feb, 6 Mar, 30 day(s) Active Fluticasone Propionate 50 MCG/ACT Nasally Once a day 1 spray in each nostril 24h Feb, 30 day(s) Active PredniSONE 20 MG Orally Once a day 2 tablet 24h Feb, Feb, 5 days Active RESULTS No Results PROCEDURES Procedure Date Ordered Related Diagnosis Body Site Office Visit, Est Pt., Level 3 Mar 01, 2016 IMMUNIZATIONS No Known Immunizations
--- OUTSIDE RECORDS SUMMARY | 2019-09-10 16:38 | XMS REPORT ---
Author Author Karina Valdes Doctor Organization [facility] Address Unknown Phone Unavailable Care Team Providers Care Tool Liaison Name Role Phone Migration, Doctor Unavailable Unavailable PROBLEMS Type Condition ICD9-CM Code [id number] Code Onset Dates Condition S tatus SNOMED Code Problem Seasonal allergic rhinitis due to other allergic trigger J30.89 Active 739594003 Problem Anxiety F41.9 Active 61796608 Problem Well woman exam (no gynecological exam) Z00.00 Active 219189245 Problem Physical exam Z00.00 Active 923091 008 ALLERGIES No Information ENCOUNTERS Encounter Location Date Diagnosis [facility] [address] [place] [address] [id number] [address] [place] [address] 11 May, 2018 Family planning Z30.09 and W ell woman exam with routine gynecological exam Z01.419 [facility] [address] [place] [address] [id number] [address] [place] [address] 05 May, 2018 [facility] [address] [place] [address] [id number] [address] [place] [address] 12 Apr, 2017 [facility] [address] [address] [id number] [address] [place] [address] Mar, Routine gynecological examin ation Z01.419 [facility] [id number] [place] [address] Feb, [facility] [address] [place] [address] [id number] [address] [place] [address] July, Wrist pain, left M25.532 and Anxiety F41.[address] [facility] [address] [facility] [id number] [address] [place] [address] Feb, Other viral agents as the ca use of diseases classified elsewhere B97.89 and Acute upper respiratory infection, unspecified J06.9 [facility] [address] [address] Feb, Well woman exam with routine gynecological exam Z01.419 and Breast cancer screening Z12.[address] [facility] [place] [address] [address] Feb, Seasonal allergic rhinitis d ue to other allergic trigger J30.89 [place] [address] [address] Feb, [facility] [place] [address] [address] Feb, [place] [address] [address] Jan, [place] [address] [address] Oct, Abdominal bloating R14.0 [place] [address] [address] Aug, Allergic reaction caused by a drug, initial encounter T78.40XA and Spider bite wound, accidental or unintentional, sequela T63.301S [facility] [place] [address] [address] Aug, [place] [address] [address] Aug, [facility] [place] [address] [address] Aug, Insect bite, initial encount er W57.XXXA [place] [address] [address] July, Nevus of back D22.5 and Bloa ting R14.0 [place] [address] [address] July, Nevus of back D22.5 and Athl etes foot B35.3 [facility] [address] [id number] [address] [place] [address] 27 Jun, 2015 Bloating R14.0 and Nevus of back D22.5 [facility] [address] [id number] [address] [place] [address] May, [facility] [address] [id number] [address] [place] [address] Apr, [facility] [address] [id number] [address] [place] [address] Apr, Physical exam Z00.00 [facility] [address] [id number] [address] [place] [address] Apr, [facility] [address] [id number] [address] [place] [address] Mar, Sinusitis J32.9 [facility] [address] [id number] [address] [place] [address] 04 Jan, 2015 Well woman exam (no gynecolo gical exam) Z00.00 [facility] [address] [id number] [address] [place] [address] 14 Jun, 2014 [facility] [address] [id number] [address] [place] [address] 13 Jun, 2014 [facility] [address] [id number] [address] [place] [address] May, [facility] [address] [id number] [address] [place] [address] May, [facility] [address] [id number] [address] [place] [address] Jan, [facility] [address] [id number] [address] [place] [address] Jan, [facility] [address] [id number] [address] [place] [address] Jan, [facility] [address] [id number] [address] [place] [address], [place] [address] Jan, [facility] [address] [id number] [address] [place] [address], [place] [address] Jan, [facility] [address] [id number] [address] [place] [address], [place] [address] July, [facility] [address] [id number] [address] [place] [address], [place] [address] July, [facility] [address] [id number] [address] [place] [address], [place] [address] May, [facility] [address] [id number] [address] [place] [address], [place] [address] May, [facility] [address] [id number] [address] [place] [address], [place] [address] May, [facility] [address] [id number] [address] [place] [address], [place] [address] May, [facility] [address] [id number] [address] [place] [address], [place] [address] May, [facility] [address] [id number] [address] [place] [address], [place] [address] May, [facility] [address] [id number] [address] [place] [address], [place] [address] Dec, [facility] [address] [id number] [address] [place] [address], [place] [address] 16 Dec, 2012 [facility] [address] [id number] [address] [place] [address], [place] [address] 16 Dec, 2012 [facility] [address] [id number] [address] [place] [address], [place] [address] 16 Dec, 2012 [facility] [address] [id number] [address] [place] [address], [place] [address] 14 Dec, 2012 [facility] [address] [id number] [address] [place] [address], [place] [address] 23 Nov, 2012 [facility] [address] [id number] [address] [place] [address], [place] [address] Nov, [facility] [address] [id number] [address] [place] [address], [place] [address] Sep, [facility] [address] [id number] [address] [place] [address], [place] [address] Sep, [facility] [address] [id number] [address] [place] [address], [place] [address] Sep, [facility] [address] [id number] [address] [place] [address], [place] [address] Sep, [facility] [address] [id number] [address] [place] [address], [place] [address] Jan, [facility] [address] [id number] [address] [place] [address], [place] [address] Jan, [facility] [address] [id number] [address] [place] [address], [place] [address] Dec, [facility] [address] [id number] [address] [place] [address], [place] [address] Dec, [facility] [address] [id number] [address] [place] [address], [place] [address] Dec, [facility] [address] [id number] [address] [place] [address], [place] [address] Oct, [facility] [address] [id number] [address] [place] [address], [place] [address] Aug, [facility] [address] [id number] [address] [place] [address], [place] [address] July, [facility] [address] [id number] [address] [place] [address], [place] [address] July, [facility] [address] [id number] [address] [place] [address], [place] [address] Mar, [facility] [address] [id number] [address] [place] [address], [place] [address] Jan, [facility] [address] [id number] [address] [place] [address] Dec, [facility] [address] [id number] [address] [place] [address] Dec, [facility] [address] [id number] [address] [place] [address] Dec, [facility] [address] [id number] [address] [place] [address] Oct, [facility] [address] [id number] [address] [place] [address] Feb, [facility] [address] [id number] [address] [place] [address] Feb, [facility] [address] [id number] [address] [place] [address] Jan, IMMUNIZATIONS No Known Immunizations SOCIAL HISTORY Never Assessed REASON FOR VISIT [facility] [place] OF CARE VITAL SIGNS MEDICATIONS Unknown Medications RESULTS No Results PROCEDURES No Known procedures INSTRUCTIONS MEDICATIONS ADMINISTERED No Known Medications MEDICAL (GENERAL) HISTORY Type Description Date Medical History IBS Surgical History breast augmentation Hospitalization History surgeries
--- OUTSIDE RECORDS SUMMARY | 2019-09-10 16:38 | XMS REPORT ---
Author Author Karina GRANT Organization [facility] Address [address] [place] [address] Care Team Providers Care [employer] Volleyball Coach Name Role Phone MARIELENA GRANT Unavailable PROBLEMS Type Condition ICD9-CM Code WBH03-TV Code Onset Dates Condition S tatus SNOMED Code Problem Anxiety F41.9 Active 26220225 Problem Seasonal allergic rhinitis due to other allergic trigger J30.89 Active 050964061 Problem Physical exam Z00.00 Active 881019 008 Problem Well woman exam (no gynecological exam) Z00.00 Active 224154066 ALLERGIES No Known Allergies SOCIAL HISTORY No smoking Hx information available PLAN OF CARE VITAL SIGNS MEDICATIONS Medication Instructions Dosage Frequency Start Date End Date Duration S tatus Delmont-28 0.15-30 MG-MCG Orally Once a day 1 tablet 24h 28 Active RESULTS No Results PROCEDURES No Known procedures IMMUNIZATIONS No Known Immunizations
--- OUTSIDE RECORDS SUMMARY | 2019-09-10 16:38 | XMS REPORT ---
Author Author Karina GRANT Organization [facility] Address [address] [place] [address] Care Team Providers Care Vehicle Assembler Name Role Phone MARIELENA GRANT Unavailable PROBLEMS Type Condition ICD9-CM Code IQM43-CP Code Onset Dates Condition S tatus SNOMED Code Problem Anxiety F41.9 Active 87518113 Problem Seasonal allergic rhinitis due to other allergic trigger J30.89 Active 495019455 Problem Physical exam Z00.00 Active 590276 008 Problem Well woman exam (no gynecological exam) Z00.00 Active 006731213 ALLERGIES No Known Allergies SOCIAL HISTORY No smoking Hx information available PLAN OF CARE VITAL SIGNS MEDICATIONS Unknown Medications RESULTS No Results PROCEDURES No Known procedures IMMUNIZATIONS No Known Immunizations
--- OUTSIDE RECORDS SUMMARY | 2019-09-10 16:38 | XMS REPORT ---
Author Author Karina Valdes Doctor Organization [facility] Address Unknown Phone Unavailable Care Team Providers Care Engineering Librarian Name Role Phone Migration, Doctor Unavailable Unavailable PROBLEMS Type Condition ICD9-CM Code OPW18-HW Code Onset Dates Condition S tatus SNOMED Code Problem Seasonal allergic rhinitis due to other allergic trigger J30.89 Active 863153577 Problem Anxiety F41.9 Active 68045655 Problem Well woman exam (no gynecological exam) Z00.00 Active 634381752 Problem Physical exam Z00.00 Active 352997 008 ALLERGIES No Information ENCOUNTERS Encounter Location Date Diagnosis [address] [address] May, [facility] [address] [facility] [id number] [address] [place] [address] May, Family planning Z30.09 and W ell woman exam with routine gynecological exam Z01.419 [facility] [address] [facility] [id number] [address] [place] [address] May, [facility] [address] [facility] [id number] [address] [place] [address] Apr, [facility] [address] [facility] [id number] [address] [place] [address] Mar, Routine gynecological examin ation Z01.419 [facility] [address] [id number] [address] [place] [address] Feb, [facility] [address] [facility] [id number] [address] [place] [address] July, Wrist pain, left M25.532 and Anxiety F41.9 [facility] [address] [facility] [id number] [address] [place] [address] Feb, Other viral agents as the ca use of diseases classified elsewhere B97.89 and Acute upper respiratory infection, unspecified J06.9 [facility] [address] [address] 26 Feb, 2016 Well woman exam with routine gynecological exam Z01.419 and Breast cancer screening Z12.39 [facility] [place] [address] [place] [id number] [place] [address] 23 Feb, 2016 Seasonal allergic rhinitis d ue to other allergic trigger J30.89 [place] [address] [address] 19 Feb, 2016 [facility] [place] [address] [address] Feb, [place] [address] [address] Jan, [place] [address] [address] Oct, Abdominal bloating R14.0 [place] [address] [address] Aug, Allergic reaction caused by a drug, initial encounter T78.40XA and Spider bite wound, accidental or unintentional, sequela T63.301S [facility] [place] [address] [address] Aug, [place] [address] [address] Aug, [facility] [place] [address] [address] Aug, Insect bite, initial encount er W57.XXXA [address] [address] July, Nevus of back D22.5 and Bloa ting R14.[address] [address] July, Nevus of back D22.5 and Athl etes foot B35.3 [facility] [address] [id number] [address] [place] [address] Jun, Bloating R14.0 and Nevus of back D22.5 [facility] [address] [id number] [address] [place] [address] May, [facility] [address] [id number] [address] [place] [address] Apr, [facility] [address] [id number] [address] [place] [address] Apr, Physical exam Z00.00 [facility] [address] [id number] [address] [place] [address] 17 Apr, 2015 [facility] [address] [facility] [id number] [address] [place] [address] Mar, Sinusitis J32.9 [facility] [address] [id number] [address] [place] [address] Jan, Well woman exam (no gynecolo gical exam) Z00.00 [facility] [address] [id number] [address] [place] [address] 14 Jun, 2014 [facility] [address] [facility] [id number] [address] [place] [address] 13 Jun, 2014 [facility] [address] [id number] [address] [place] [address] May, [facility] [address] [id number] [address] [place] [address] May, [facility] [address] [id number] [address] [place] [address] Jan, [facility] [address] [id number] [address] [place] [address] Jan, [facility] [address] [id number] [address] [place] [address] Jan, [facility] [address] [id number] [address] [place] [address], [place] [address] Jan, [facility] [address] [id number] [address] [place] [address], [place] [address] Jan, [facility] [address] [id number] [address] [place] [address], [place] [address] July, [facility] [address] [id number] [address] [place] [address], [place] [address] July, [facility] [address] [id number] [address] [place] [address], [place] [address] May, [facility] [address] [id number] [address] [place] [address], [place] [address] May, [facility] [address] [id number] [address] [place] [address], [place] [address] May, [facility] [address] [id number] [address] [place] [address], [place] [address] May, [facility] [address] [id number] [address] [place] [address], [place] [address] May, [facility] [address] [id number] [address] [place] [address], [place] [address] May, [facility] [address] [id number] [address] [place] [address], [place] [address] 16 Dec, 2012 [facility] [address] [id number] [address] [place] [address], [place] [address] 16 Dec, 2012 [facility] [address] [id number] [address] [place] [address], [place] [address] 16 Dec, 2012 [facility] [address] [id number] [address] [place] [address], [place] [address] 16 Dec, 2012 [facility] [address] [id number] [address] [place] [address], [place] [address] 14 Dec, 2012 [facility] [address] [id number] [address] [place] [address], [place] [address] Nov, [facility] [address] [id number] [address] [place] [address], [place] [address] Nov, [facility] [address] [id number] [address] [place] [address], [place] [address] Sep, [facility] [address] [id number] [address] [place] [address], [place] [address] Sep, [facility] [address] [id number] [address] [place] [address], [place] [address] Sep, [facility] [address] [id number] [address] [place] [address], [place] [address] Sep, [facility] [address] [id number] [address] [place] [address], [place] [address] Jan, [facility] [address] [id number] [address] [place] [address], [place] [address] Jan, [facility] [address] [id number] [address] [place] [address], [place] [address] Dec, [facility] [address] [id number] [address] [place] [address], [place] [address] Dec, [facility] [address] [id number] [address] [place] [address], [place] [address] Dec, [facility] [address] [id number] [address] [place] [address], [place] [address] Oct, [facility] [address] [id number] [address] [place] [address], [place] [address] Aug, [facility] [address] [id number] [address] [place] [address], [place] [address] July, [facility] [address] [id number] [address] [place] [address], [place] [address] July, [facility] [address] [id number] [address] [place] [address], [place] [address] Mar, [facility] [address] [id number] [address] [place] [address] Jan, [facility] [address] [id number] [address] [place] [address] Dec, [facility] [address] [id number] [address] [place] [address] Dec, [facility] [address] [id number] [address] [place] [address] Dec, [facility] [address] [id number] [address] [place] [address] Oct, [facility] [address] [id number] [address] [place] [address] Feb, [facility] [address] [id number] [address] [place] [address] Feb, [facility] [address] [id number] [address] [place] [address] Jan, IMMUNIZATIONS No Known Immunizations SOCIAL HISTORY Never Assessed REASON FOR VISIT [facility] [place] PLAN OF CARE VITAL SIGNS MEDICATIONS Medication Instructions Dosage Frequency Start Date End Date Duration S tatus Azithromycin 250 mg 2 Tablet by Oral rou te on day 1 then take 1 daily for 4 days May, Active Nystatin-Triamcinolone 100,000-0.1 unit/g-% 1 sonia by Topical route 2 times per day for 14 day(s) Sep, Active Ketoconazole 2 % apply 1 sonia by Topical route 1 time p er day for 2 weeks Sep, Active Bactrim DS 800-160 mg 1 tablet by Oral route 2 times p er day for 3 day(s) Dec, Active RESULTS No Results PROCEDURES No Known procedures INSTRUCTIONS MEDICATIONS ADMINISTERED No Known Medications MEDICAL (GENERAL) HISTORY Type Description Date Medical History IBS Surgical History breast augmentation Hospitalization History surgeries
--- OUTSIDE RECORDS SUMMARY | 2019-09-10 16:38 | XMS REPORT ---
Author Author Karina Valdes Doctor Organization [facility] Address Unknown Phone Unavailable Care Team Providers Care Hand Edger Name Role Phone Migration, Doctor Unavailable Unavailable PROBLEMS Type Condition ICD9-CM Code [id number] Code Onset Dates Condition S tatus SNOMED Code Problem Seasonal allergic rhinitis due to other allergic trigger J30.89 Active 736455796 Problem Anxiety F41.9 Active 43859955 Problem Well woman exam (no gynecological exam) Z00.00 Active 183943551 Problem Physical exam Z00.00 Active 172994 008 ALLERGIES No Information ENCOUNTERS Encounter Location Date Diagnosis [address] [address] May, [facility] [address] [facility] [id number] [address] [place] [address] May, Family planning Z30.09 and W ell woman exam with routine gynecological exam Z01.419 [facility] [address] [facility] [id number] [address] [place] [address] May, [facility] [address] [facility] [id number] [address] [place] [phone] Apr, [facility] [address] [facility] [id number] [address] [place] [phone] Mar, Routine gynecological examin ation Z01.419 [facility] [address] [id number] [address] [place] [address] Feb, [facility] [address] [facility] [id number] [address] [place] [address] July, Wrist pain, left M25.532 and Anxiety F41.[address] [facility] [address] [facility] [id number] [address] [place] [address] Feb, Other viral agents as the ca use of diseases classified elsewhere B97.89 and Acute upper respiratory infection, unspecified J06.9 [facility] [address] [address] 26 Feb, 2016 Well woman exam with routine gynecological exam Z01.419 and Breast cancer screening Z12.39 [facility] [place] [address] [place] [id number] [place] [address] 23 Feb, 2016 Seasonal allergic rhinitis d ue to other allergic trigger J30.89 [place] [address] [address] 19 Feb, [address] [facility] [place] [address] [address] Feb, [place] [address] [address] Jan, [place] [address] [address] Oct, Abdominal bloating R14.0 [place] [address] [address] Aug, Allergic reaction caused by a drug, initial encounter T78.40XA and Spider bite wound, accidental or unintentional, sequela T63.301S [facility] [place] [address] [address] Aug, [place] [address] [address] Aug, [facility] [place] [address] [address] Aug, Insect bite, initial encount er W57.XXXA [address] [address] July, Nevus of back D22.5 and Bloa ting R14.[address] [address] July, Nevus of back D22.5 and Athl etes foot B35.3 [facility] [address] [id number] [address] [place] [address] Jun, Bloating R14.0 and Nevus of back D22.5 [facility] [address] [id number] [address] [place] [address] May, [facility] [address] [id number] [address] [place] [address] Apr, [facility] [address] [id number] [address] [place] [address] Apr, Physical exam Z00.00 [facility] [address] [id number] [address] [place] [id number] 17 Apr, 2015 [facility] [address] [facility] [id number] [address] [place] [address] Mar, Sinusitis J32.9 [facility] [address] [id number] [address] [place] [id number] Jan, Well woman exam (no gynecolo gical exam) Z00.00 [facility] [address] [id number] [address] [place] [id number] 14 Jun, 2014 [facility] [address] [facility] [id number] [address] [place] [phone] 13 Jun, 2014 [facility] [address] [id number] [address] [place] [phone] May, [facility] [address] [id number] [address] [place] [address] May, [facility] [address] [id number] [address] [place] [address] Jan, [facility] [address] [id number] [address] [place] [address] Jan, [facility] [address] [id number] [address] [place] [phone] Jan, [facility] [address] [id number] [address] [place] [address], [place] [address] Jan, [facility] [address] [id number] [address] [place] [address], [place] [address] Jan, [facility] [address] [id number] [address] [place] [address], [place] [address] July, [facility] [address] [id number] [address] [place] [address], [place] [address] July, [facility] [address] [id number] [address] [place] [address], [place] [address] May, [facility] [address] [id number] [address] [place] [address], [place] [address] May, [facility] [address] [id number] [address] [place] [address], [place] [address] May, [facility] [address] [id number] [address] [place] [address], [place] [address] May, [facility] [address] [id number] [address] [place] [address], [place] [address] May, [facility] [address] [id number] [address] [place] [address], [place] [address] May, [facility] [address] [id number] [address] [place] [address], [place] [address] 16 Dec, 2012 [facility] [address] [id number] [address] [place] [address], [place] [address] 16 Dec, 2012 [facility] [address] [id number] [address] [place] [address], [place] [address] 16 Dec, 2012 [facility] [address] [id number] [address] [place] [address], [place] [address] 16 Dec, 2012 [facility] [address] [id number] [address] [place] [address], [place] [address] 14 Dec, 2012 [facility] [address] [id number] [address] [place] [address], [place] [address] Nov, [facility] [address] [id number] [address] [place] [address], [place] [address] Nov, [facility] [address] [id number] [address] [place] [address], [place] [address] Sep, [facility] [address] [id number] [address] [place] [address], [place] [address] Sep, [facility] [address] [id number] [address] [place] [address], [place] [address] Sep, [facility] [address] [id number] [address] [place] [address], [place] [address] Sep, [facility] [address] [id number] [address] [place] [address], [place] [address] Jan, [facility] [address] [id number] [address] [place] [address], [place] [address] Jan, [facility] [address] [id number] [address] [place] [address], [place] [address] Dec, [facility] [address] [id number] [address] [place] [address], [place] [address] Dec, [facility] [address] [id number] [address] [place] [address], [place] [address] Dec, [facility] [address] [id number] [address] [place] [address], [place] [address] Oct, [facility] [address] [id number] [address] [place] [address], [place] [address] Aug, [facility] [address] [id number] [address] [place] [address], [place] [address] July, [facility] [address] [id number] [address] [place] [address], [place] [address] July, [facility] [address] [id number] [address] [place] [address], [place] [address] Mar, [facility] [address] [id number] [address] [place] [address] Jan, [facility] [address] [id number] [address] [place] [address] Dec, [facility] [address] [id number] [address] [place] [address] Dec, [facility] [address] [id number] [address] [place] [address] Dec, [facility] [address] [id number] [address] [place] [address] Oct, [facility] [address] [id number] [address] [place] [address] Feb, [facility] [address] [id number] [address] [place] [address] Feb, [facility] [address] [id number] [address] [place] [address] Jan, IMMUNIZATIONS No Known Immunizations SOCIAL HISTORY Never Assessed REASON FOR VISIT [place] [place] VITAL SIGNS MEDICATIONS Unknown Medications RESULTS No Results PROCEDURES No Known procedures INSTRUCTIONS MEDICATIONS ADMINISTERED No Known Medications MEDICAL (GENERAL) HISTORY Type Description Date Medical History IBS Surgical History breast augmentation Hospitalization History surgeries
--- OUTSIDE RECORDS SUMMARY | 2019-09-10 16:38 | XMS REPORT ---
Author Author Karina SANDRA Organization [employer] Address Unknown Phone Unavailable Care Team Providers Care Health Record Technician Name Role Phone ARACELI SANDRA CP Unavailable Allergies, Adverse Reactions, Alerts Substance Reaction Event Type N.K.D.A. Info Not Available Non Drug Allergy Problems Problem Type Condition Code Onset Dates Condition Statu s Problem Routine general medical examination at [facility] V70.0 Active Problem Cough 786.2 Active Problem Dizziness and giddiness 780.4 Acti ve Assessment Sinusitis J32.9 Active Problem Other general counseling and advice [...] Instructions Start Date End Date Status Dosage [place]-28 [facility] [address]-09 0.15-30 MG-MCG Orally Once a day Jan 11, 2015 1 tablet Azithromycin [facility] [address]-88 250 MG Orally Once a day MarMar 20, 2015 2 tablets on the first day, then 1 tablet daily for 4 days Procedures Procedure Coding System Code Date Office Visit, Est Pt., Level 3 CPT-4 14747 J 2015 Vital Signs Date/Time: Mar 15, 2015 Temperature 98.2 F Weight 110.0 lbs Height 61 in BMI 20.78 Index Blood Pressure Diastolic 70 mmHg Blood Pressure Systolic 112 mmHg Cardiac Monitoring Heart Rate 76 bpm Results No Known Results Summary Purpose [employer] Submission
--- OUTSIDE RECORDS SUMMARY | 2019-09-10 16:38 | XMS REPORT ---
Author Author Karina Valdes Doctor Organization [facility] Address Unknown Phone Unavailable Care Team Providers Care Math Instructor Name Role Phone Migration, Doctor Unavailable Unavailable PROBLEMS Type Condition ICD9-CM Code [id number] Code Onset Dates Condition S tatus SNOMED Code Problem Seasonal allergic rhinitis due to other allergic trigger J30.89 Active 635472858 Problem Anxiety F41.9 Active 52634656 Problem Well woman exam (no gynecological exam) Z00.00 Active 689514574 Problem Physical exam Z00.00 Active 468357 008 ALLERGIES No Information ENCOUNTERS Encounter Location Date Diagnosis [address] [address] May, [facility] [address] [facility] [id number] [address] [place] [address] May, Family planning Z30.09 and W ell woman exam with routine gynecological exam Z01.419 [facility] [address] [facility] [id number] [address] [place] [address] May, [facility] [address] [facility] [id number] [address] [place] [address] Apr, [facility] [address] [facility] [id number] [address] [place] [address] Mar, Routine gynecological examin ation Z01.419 [facility] [address] [id number] [address] [place] [address] Feb, [facility] [address] [facility] [id number] [address] [place] [address] July, Wrist pain, left M25.532 and Anxiety F41.9 [facility] [address] [facility] [id number] [address] [place] [address] Feb, Other viral agents as the ca use of diseases classified elsewhere B97.89 and Acute upper respiratory infection, unspecified J06.9 [facility] [address] [address] 26 Feb, 2016 Well woman exam with routine gynecological exam Z01.419 and Breast cancer screening Z12.39 [facility] [place] [address] [place] [id number] [place] [address] 23 Feb, 2016 Seasonal allergic rhinitis d ue to other allergic trigger J30.89 [place] [address] [address] 19 Feb, 2016 [facility] [place] [address] [address] Feb, [place] [address] [address] Jan, [place] [address] [address] Oct, Abdominal bloating R14.0 [place] [address] [address] Aug, Allergic reaction caused by a drug, initial encounter T78.40XA and Spider bite wound, accidental or unintentional, sequela T63.301S [facility] [place] [address] [address] Aug, [place] [address] [address] Aug, [facility] [place] [address] [address] Aug, Insect bite, initial encount er W57.XXXA [address] [address] July, Nevus of back D22.5 and Bloa ting R14.[address] [address] July, Nevus of back D22.5 and Athl etes foot B35.3 [facility] [address] [id number] [address] [place] [address] Jun, Bloating R14.0 and Nevus of back D22.5 [facility] [address] [id number] [address] [place] [address] May, [facility] [address] [id number] [address] [place] [address] Apr, [facility] [address] [id number] [address] [place] [address] Apr, Physical exam Z00.00 [facility] [address] [id number] [address] [place] [address] 17 Apr, 2015 [facility] [address] [facility] [id number] [address] [place] [address] Mar, Sinusitis J32.9 [facility] [address] [id number] [address] [place] [address] Jan, Well woman exam (no gynecolo gical exam) Z00.00 [facility] [address] [id number] [address] [place] [address] 14 Jun, 2014 [facility] [address] [facility] [id number] [address] [place] [address] 13 Jun, 2014 [facility] [address] [id number] [address] [place] [address] May, [facility] [address] [id number] [address] [place] [address] May, [facility] [address] [id number] [address] [place] [address] Jan, [facility] [address] [id number] [address] [place] [address] Jan, [facility] [address] [id number] [address] [place] [address] Jan, [facility] [address] [id number] [address] [place] [address], [place] [id number] Jan, [facility] [address] [id number] [address] [place] [address], [place] [id number] Jan, [facility] [address] [id number] [address] [place] [address], [place] [id number] July, [facility] [address] [id number] [address] [place] [address], [place] [id number] July, [facility] [address] [id number] [address] [place] [address], [place] [id number] May, [facility] [address] [id number] [address] [place] [address], [place] [id number] May, [facility] [address] [id number] [address] [place] [address], [place] [id number] May, [facility] [address] [id number] [address] [place] [address], [place] [id number] May, [facility] [address] [id number] [address] [place] [address], [place] [id number] May, [facility] [address] [id number] [address] [place] [address], [place] [id number] May, [facility] [address] [id number] [address] [place] [address], [place] [id number] 16 Dec, 2012 [facility] [address] [id number] [address] [place] [address], [place] [id number] 16 Dec, 2012 [facility] [address] [id number] [address] [place] [address], [place] [id number] 16 Dec, 2012 [facility] [address] [id number] [address] [place] [address], [place] [id number] 16 Dec, 2012 [facility] [address] [id number] [address] [place] [address], [place] [id number] 14 Dec, 2012 [facility] [address] [id number] [address] [place] [address], [place] [id number] Nov, [facility] [address] [id number] [address] [place] [address], [place] [id number] Nov, [facility] [address] [id number] [address] [place] [address], [place] [id number] Sep, [facility] [address] [id number] [address] [place] [address], [place] [id number] Sep, [facility] [address] [id number] [address] [place] [address], [place] [id number] Sep, [facility] [address] [id number] [address] [place] [address], [place] [id number] Sep, [facility] [address] [id number] [address] [place] [address], [place] [id number] Jan, [facility] [address] [id number] [address] [place] [address], [place] [id number] Jan, [facility] [address] [id number] [address] [place] [address], [place] [id number] Dec, [facility] [address] [id number] [address] [place] [address], [place] [id number] Dec, [facility] [address] [id number] [address] [place] [address], [place] [id number] Dec, [facility] [address] [id number] [address] [place] [address], [place] [id number] Oct, [facility] [address] [id number] [address] [place] [address], [place] [id number] Aug, [facility] [address] [id number] [address] [place] [address], [place] [id number] July, [facility] [address] [id number] [address] [place] [address], [place] [id number] July, [facility] [address] [id number] [address] [place] [address], [place] [id number] Mar, [facility] [address] [id number] [address] [place] [phone] Jan, [facility] [address] [id number] [address] [place] [id number] Dec, [facility] [address] [id number] [address] [place] [phone] Dec, [facility] [address] [id number] [address] [place] [phone] Dec, [facility] [address] [id number] [address] [place] [id number] Oct, [facility] [address] [id number] [address] [place] [phone] Feb, [facility] [address] [id number] [address] [place] [phone] Feb, [facility] [address] [id number] [address] [place] [phone] Jan, IMMUNIZATIONS No Known Immunizations SOCIAL HISTORY Never Assessed REASON FOR VISIT EMR-[facility] [place] PLAN OF CARE VITAL SIGNS MEDICATIONS Unknown Medications RESULTS No Results PROCEDURES No Known procedures INSTRUCTIONS MEDICATIONS ADMINISTERED No Known Medications MEDICAL (GENERAL) HISTORY Type Description Date Medical History IBS Surgical History breast augmentation Hospitalization History surgeries
--- OUTSIDE RECORDS SUMMARY | 2019-09-10 16:38 | XMS REPORT ---
Author Author Karina PARKER Organization [facility] Address [address] [place] [address] Care Team Providers Care Cloth Washer Name Role Phone GATITO PARKER Unavailable PROBLEMS Type Condition ICD9-CM Code [id number] Code Onset Dates Condition S tatus SNOMED Code Problem Anxiety F41.9 Active 19570629 Problem Seasonal allergic rhinitis due to other allergic trigger J30.89 Active 715419610 Problem Physical exam Z00.00 Active 641138 008 Problem Well woman exam (no gynecological exam) Z00.00 Active 409601478 ALLERGIES No Information ENCOUNTERS Encounter Location Date Diagnosis [place] [address] [address] [facility] [id number] [address] [place] [address] 12 Apr, 2017 [place] [address] [address] [facility] [id number] [address] [place] [address] Mar, Routine gynecological examin ation Z01.419 [place] [address] [address] [facility] [id number] [address] [place] [address] Feb, [place] [address] [address] [facility] [id number] [address] [place] [address] July, Wrist pain, left M25.532 and Anxiety F41.9 [facility] [address] [facility] [id number] [address] [place] [address] Feb, Other viral agents as the ca use of diseases classified elsewhere B97.89 and Acute upper respiratory infection, unspecified J06.9 [facility] [address] [facility] [id number] [address] [place] [address] Feb, Well woman exam with routine gynecological exam Z01.419 and Breast cancer screening Z12.39 [facility] [address] [facility] [id number] [address] [place] [address] Feb, Seasonal allergic rhinitis d ue to other allergic trigger J30.89 [place] [address] [address] Feb, [facility] [address] [address] Feb, [place] [address] [address] Jan, [place] [address] [address] Oct, Abdominal bloating R14.0 [place] [address] [address] Aug, Allergic reaction caused by a drug, initial encounter T78.40XA and Spider bite wound, accidental or unintentional, sequela T63.301S [facility] [address] [address] Aug, [place] [address] [address] Aug, [facility] [address] [address] Aug, Insect bite, initial encount er W57.XXXA [place] [address] [address] July, Nevus of back D22.5 and Bloa ting R14.0 [place] [address] [address] July, Nevus of back D22.5 and Athl etes foot B35.3 [place] [address] [address] [place] [id number] [address] [place] [address] Jun, Bloating R14.0 and Nevus of back D22.5 [place] [address] [address] May, [facility] [address] [id number] [address] [place] [address] Apr, [facility] [address] [id number] [address] [place] [address] Apr, Physical exam Z00.00 [facility] [address] [id number] [address] [place] [address] 17 Apr, 2015 [facility] [address] [id number] [address] [place] [address] Mar, Sinusitis J32.9 [facility] [address] [id number] [address] [place] [address] Jan, Well woman exam (no gynecolo gical exam) Z00.00 [facility] [address] [id number] [address] [place] [address] 14 Jun, 2014 [facility] [address] [id number] [address] [place] [address] Jun, [facility] [address] [id number] [address] [place] [address] May, [facility] [address] [id number] [address] [place] [address] May, [facility] [address] [id number] [address] [place] [address] Jan, [facility] [address] [id number] [address] [place] [address] Jan, [facility] [address] [id number] [address] [place] [address] Jan, [facility] [address] [id number] [address] [place] [address] Jan, [facility] [address] [id number] [address] [place] [address] Jan, [facility] [address] [id number] [address] [place] [address], [place] [address] July, [facility] [address] [id number] [address] [place] [address], [place] [address] July, [facility] [address] [id number] [address] [place] [address], [place] [address] May, [facility] [address] [id number] [address] [place] [address], [place] [address] May, [facility] [address] [id number] [address] [place] [address], [place] [address] May, [facility] [address] [id number] [address] [place] [address], [place] [address] May, [facility] [address] [id number] [address] [place] [address], [place] [address] May, [facility] [address] [id number] [address] [place] [address], [place] [address] May, [facility] [address] [id number] [address] [place] [address], [place] [address] 16 Dec, 2012 [facility] [address] [id number] [address] [place] [address], [place] [address] 16 Dec, 2012 [facility] [address] [id number] [address] [place] [address], [place] [address] 16 Dec, 2012 [facility] [address] [id number] [address] [place] [address], [place] [address] 16 Dec, 2012 [facility] [address] [id number] [address] [place] [address], [place] [address] 14 Dec, 2012 [facility] [address] [id number] [address] [place] [address], [place] [address] 23 Nov, 2012 [facility] [address] [id number] [address] [place] [address], [place] [address] Nov, [facility] [address] [id number] [address] [place] [address], [place] [address] Sep, [facility] [address] [id number] [address] [place] [address], [place] [address] Sep, [facility] [address] [id number] [address] [place] [address], [place] [address] Sep, [facility] [address] [id number] [address] [place] [address], [place] [address] Sep, [facility] [address] [id number] [address] [place] [address], [place] [address] Jan, [facility] [address] [id number] [address] [place] [address], [place] [address] Jan, [facility] [address] [id number] [address] [place] [address], [place] [address] Dec, [facility] [address] [id number] [address] [place] [address], [place] [address] Dec, [facility] [address] [id number] [address] [place] [address], [place] [address] Dec, [facility] [address] [id number] [address] [place] [address], [place] [address] Oct, [facility] [address] [id number] [address] [place] [address], [place] [address] Aug, [facility] [address] [id number] [address] [place] [address], [place] [address] July, [facility] [address] [id number] [address] [place] [address], [place] [address] July, [facility] [address] [id number] [address] [place] [address], [place] [address] Mar, [facility] [address] [id number] [address] [place] [address], [place] [address] Jan, [facility] [address] [id number] [address] [place] [address], [place] [address] Dec, [facility] [address] [id number] [address] [place] [address] 10 Dec, 2010 [facility] [address] [facility] [id number] [address] [place] [address] Dec, [facility] [address] [facility] [id number] [address] [place] [address] Oct, [facility] [address] [facility] [id number] [address] [place] [address] Feb, [facility] [address] [facility] [id number] [address] [place] [address] Feb, [facility] [address] [facility] [id number] [address] [place] [address] Jan, IMMUNIZATIONS No Known Immunizations SOCIAL HISTORY Never Assessed REASON FOR VISIT control PLAN OF CARE VITAL SIGNS MEDICATIONS Medication Instructions Dosage Frequency Start Date End Date Duration S tatus Kurvelo 0.15-30 MG-MCG Orally Once a day 1 tablet 24h Active RESULTS No Results PROCEDURES No Known procedures INSTRUCTIONS MEDICATIONS ADMINISTERED No Known Medications MEDICAL (GENERAL) HISTORY Type Description Date Medical History IBS Surgical History breast augmentation Hospitalization History surgeries
--- OUTSIDE RECORDS SUMMARY | 2019-09-10 16:38 | XMS REPORT ---
Author Author Karina GRANT [facility] eClinicalWorks Address Unknown Phone Unavailable Care Team Providers Care Oil Transport Driver Name Role Phone MARIELENA GRANT Unavailable Allergies No Known Allergies Problems Problem Type Condition Code Onset Dates Condition Statu s Problem Well woman exam (no gynecological exam) Z00.00 Active Problem Physical exam Z00.00 Active Medications Medication Code System Code Instructions Start Date End Date Status Dosage Felipa-28 [facility] [id number] 0.15-30 MG-MCG Orally Once a day Jan 11, 2015 1 tablet Results No Known Results Summary Purpose eClinicalWorks Submission
--- OUTSIDE RECORDS SUMMARY | 2019-09-10 16:39 | XMS REPORT | Continuity of Care Document ---
Demographics Preferred Language Unknown Marital Status Unknown Bahai Affiliation Unknown Race Unknown Ethnic Group Unknown Author Organization Unknown Address Unknown Phone Unavailable Allergies Active Description Code Type Severity Reaction Onset Reported/Identified Relationship to Patient Clinical Status Yes No Allergy Information Available [id number] Drug Allergy Unknown N/A 016 Medications There is no data. Problems Date Dx Coded Attending Type Code Diagnosis Diagnosed By 02/06/2010 V65.45 STD COUNSELING 02/06/2010 V72.31 ENGINE WATCHMAN EXAM, ROUTINE 02/06/2010 V74.5 STD SCREEN 02/06/2010 ISA LLOYD DO K V65.45 STD COUNSELING 02/06/2010 ISA LLOYD DO K V72.31 ENGINE WATCHMAN EXAM, ROUTINE 02/06/2010 ISA LLOYD DO K V74.5 STD SCREEN 02/06/2010 ISA LLOYD DO K V65.45 STD COUNSELING 02/06/2010 ISA LLOYD DO K V72.31 ENGINE WATCHMAN EXAM, ROUTINE 02/06/2010 ISA LLOYD DO K V74.5 STD SCREEN 02/06/2010 V65.45 STD COUNSELING 02/06/2010 V72.31 ENGINE WATCHMAN EXAM, ROUTINE 02/06/2010 V74.5 STD SCREEN 02/06/2010 SONYA BRADY, CHRISTINA A V65.45 STD COUNSELING 02/06/2010 SONYA INS[employer], CHRISTINA A V72.31 ENGINE WATCHMAN EXAM, ROUTINE 02/06/2010 SONYATRIPP MUNOZN, CHRISTINA A V7 4.5 STD SCREEN 02/06/2010 ORCAIO CORTES APRNNDA S V65.45 STD COUNSELING 02/06/2010 SOPHIA INS[employer], KEL S V72.31 ENGINE WATCHMAN EXAM, ROUTINE 02/06/2010 SOPHIA INS[employer], KEL S V74.5 STD SCREEN 10/19/2010 216.9 PIGM ENTED NEVUS 10/19/2010 719.41 alfredo nt pain, localized in the right shoulder 10/19/2010 ISA LLOYD DO K 216.9 PIGMENTED NEVUS 10/19/2010 ISA LLOYD DO K 719.41 joint pain, localized in the right shoulder 10/19/2010 ISA LLOYD DO K 216.9 PIGMENTED NEVUS 10/19/2010 LLOYD DOJINA K 719.41 joint pain, localized in the right shoulder 10/19/2010 216.9 PIGM ENTED NEVUS 10/19/2010 719.41 alfredo nt pain, localized in the right shoulder 10/19/2010 SONYA [employer], CHRISTINA A 21 6.9 PIGMENTED NEVUS 10/19/2010 SONYA INS[employer], CHRISTINA A 719.41 joint pain, localized in the right shoulder 10/19/2010 SOPHIA INS[employer], KEL S 216.9 PIGMENTED NEVUS 10/19/2010 SOPHIA INS[employer], KEL S 719.41 joint pain, localized in the right shoulder 12/17/2010 558.9 OTHE R AND UNSPECIFIED NONINFECTIOUS GASTROENTERITIS AND COLITIS 12/17/2010 ISA LLOYD DO K 558.9 OTHER AND UNSPECIFIED NONINFECTIOUS GASTROENTERITIS AND COLITIS 12/17/2010 ISA LLOYD DO K 558.9 OTHER AND UNSPECIFIED NONINFECTIOUS GASTROENTERITIS AND COLITIS 12/17/2010 558.9 OTHE R AND UNSPECIFIED NONINFECTIOUS GASTROENTERITIS AND COLITIS 12/17/2010 SONYA JOSE ANTONIO, CHRISTINA A 55 8.9 OTHER AND UNSPECIFIED NONINFECTIOUS GASTROENTERITIS AND COLITIS 12/17/2010 SOPHIA BRADY KEL S 558.9 OTHER AND UNSPECIFIED NONINFECTIOUS GASTROENTERITIS AN D COLITIS 01/15/2011 V25.9 CONT RACEPTION MANAGEMENT 01/15/2011 V76.2 CERV ICAL CANCER SCREENING (PAP SMEAR) 01/15/2011 ISA LLOYD DO K V25.9 CONTRACEPTION MANAGEMENT 01/15/2011 ISA LLOYD DO K V76.2 CERVICAL CANCER SCREENING (PAP SMEAR) 01/15/2011 ISA LLOYD DO K V25.9 CONTRACEPTION MANAGEMENT 01/15/2011 ISA LLOYD DO K V76.2 CERVICAL CANCER SCREENING (PAP SMEAR) 01/15/2011 V25.9 CONT RACEPTION MANAGEMENT 01/15/2011 V76.2 CERV ICAL CANCER SCREENING (PAP SMEAR) 01/15/2011 SONYA INS[employer], CHRISTINA A V2 5.9 CONTRACEPTION MANAGEMENT 01/15/2011 SONYA INS[employer], CHRISTINA A V7 6.2 CERVICAL CANCER SCREENING (PAP SMEAR) 01/15/2011 KEL CORTES APRN S V25.9 CONTRACEPTION MANAGEMENT 01/15/2011 KEL CORTES APRN V76.2 CERVICAL CANCER SCREENING (PAP SMEAR) 07/13/2011 074.3 HAND FOOT AND MOUTH DISEASE 07/13/2011 ISA LLOYD DO K 074.3 HAND FOOT AND MOUTH DISEASE 07/13/2011 ISA LLOYD DO K 074.3 HAND FOOT AND MOUTH DISEASE 07/13/2011 074.3 HAND FOOT AND MOUTH DISEASE 07/13/2011 CHRISTINA HASSAN APRN 07 4.3 HAND FOOT AND MOUTH DISEASE 07/13/2011 KEL CORTES APRN 074.3 HAND FOOT AND MOUTH DISEASE 12/11/2011 599.0 URIN GAYATHRI TRACT INFECTION 12/11/2011 ISA LLOYD DO K 599.0 URINARY TRACT INFECTION 12/11/2011 ISA LLOYD DO K 599.0 URINARY TRACT INFECTION 12/11/2011 599.0 URIN GAYATHRI TRACT INFECTION 12/11/2011 CHRISTINA HASSAN APRN 59 9.0 URINARY TRACT INFECTION 12/11/2011 KEL CORTES APRN S 599.0 URINARY TRACT INFECTION 02/05/2012 V25.09 CON TRACEPTIVE COUNSELING - GENERAL 02/05/2012 ISA LLOYD DO K V25.09 CONTRACEPTIVE COUNSELING - GENERAL 02/05/2012 ISA LLOYD DO K V25.09 CONTRACEPTIVE COUNSELING - GENERAL 02/05/2012 V25.09 CON TRACEPTIVE COUNSELING - GENERAL 02/05/2012 CHRISTINA HASSAN APRN V25.09 CONTRACEPTIVE COUNSELING - GENERAL 02/05/2012 KEL CORTES APRN V25.09 CONTRACEPTIVE COUNSELING - GENERAL 09/09/2012 111.0 PITY RIASIS VERSICOLOR 09/09/2012 ISA LLOYD DO K 111.0 PITYRIASIS VERSICOLOR 09/09/2012 JIN LLOYD DOA K 111.0 PITYRIASIS VERSICOLOR 09/09/2012 CHRISTINA HASSAN APRN A 11 1.0 PITYRIASIS VERSICOLOR 09/09/2012 KEL CORTES APRN S 111.0 PITYRIASIS VERSICOLOR 05/26/2013 ISA LLOYD DO K 780.4 DIZZINESS AND GIDDINESS 05/26/2013 LLOYD DO, ISA K 786.2 COUGH 05/26/2013 LLOYD DO, ISA K V70.0 EXAM - ROUTINE H&P 05/26/2013 SONYA BRADY, CHRISTINA A 78 0.4 DIZZINESS AND GIDDINESS 05/26/2013 SONYA BRADY, CHRISTINA A 78 6.2 COUGH 05/26/2013 LEON HASSAN APRNIDI A V7 0.0 EXAM - ROUTINE H&P 05/26/2013 SOPHIA MUNOZKimberly KEL S 780.4 DIZZINESS AND GIDDINESS 05/26/2013 SOPHIA BRADY KEL S 786.2 COUGH 05/26/2013 SOPHIA BRADY KEL S V70.0 EXAM - ROUTINE H&P 01/12/2014 SONYA BRADY CHRISTINA A V25.01 CONTRACEPTION - ORAL CONTRACEPTION 01/12/2014 SONYA BRADY, CHRISTINA A V76.10 BREAST CANCER SCREENING 01/12/2014 SOPHIA MUNOZKimberly KEL S V25.01 CONTRACEPTION - ORAL CONTRACEPTION 01/12/2014 SOPHIA MUNOZKimberly KEL S V76.10 BREAST CANCER SCREENING 05/18/2014 SOPHIA MUNOZKimberly KEL S 477.0 ALLERGIC RHINITIS DUE TO POLLEN 01/30/2016 MARY ARAGON MD Ot R10.11 RIGHT UPPER QUADRANT PAIN 01/31/2016 MARY ARAGON MD Ot R10.11 RIGHT UPPER QUADRANT PAIN 02/12/2016 MARY ARAGON MD Ot R10.11 RIGHT UPPER QUADRANT PAIN 02/15/2016 MARY ARAGON MD Ot R10.11 RIGHT UPPER QUADRANT PAIN 02/21/2016 MARY ARAGON MD Ot R10.11 RIGHT UPPER QUADRANT PAIN Procedures Code [place] [address] URIN E TEST (IN- HOUSE) 02/05/2012 67541 PREG ELIZABETH TEST, URINE (IN- HOUSE) 05/26/2013 97776 ROUT INE VENIPUNCTURE 05/27/2013 02488 CBC 05/27/2013 [id number] GF R CALC (RESULT ONLY) 05/27/2013 89371 CMP 05/27/2013 84301 LIPI D PANEL 05/27/2013 04138 TSH 05/27/2013 09748 MYCO PLASMA ANTIBODY 05/28/2013 65303 PAP SMEAR 01/12/2014 Q0091 PAP SMEAR OBTAIN SMEAR 01/12/2014 Results Test Result Range Genital Culture, Routine - 03/04/16 13:5 6 Genital Culture, Routine Note Pap Lb, rfx HPV ASCU - 03/04/16 13:56 DIAGNOSIS: Comment Recommendation: Comment Specimen adequacy: Comment Clinician provided ICD10: Comment Performed by: Comment Electronically signed by: Comment . . Pathologist provided ICD10: Comment Note: Comment . Comment HPV, high-risk - 03/04/16 13:56 HPV, high-risk Negative Negative CULTURE, GENITAL - 04/01/17 15:53 CULTURE, GENITAL SEE NOTE NRG SUREPATH PAP RFX HPV mRNA E6/E7 - 14:25 CLINICAL INFORMATION: NRG LMP: NRG PREV. PAP: NRG PREV. BX: NRG SOURCE: [employer] NRG STATEMENT OF ADEQUACY: NRG INTERPRETATION/RESULT: NRG WHOLESALE BUYER: NRG PATHOLOGIST: NRG COMMENT NRG CMP - 10/28/18 08:25 GLUCOSE 84 mg/dL 65-99 UREA NITROGEN (BUN) 17 mg/dL 7-25 CREATININE 0.91 mg/dL 0.50-1.10 eGFR NON-AFR. MONGOLIAN 83 mL/min/1.73m2 > OR = 60 eGFR 96 mL/min/1.73m2 > OR = 60 BUN/CREATININE RATIO NOT APPLICABLE (calc) 6-22 SODIUM 140 mmol/L 135-146 POTASSIUM 4.3 mmol/L 3.5-5.3 CHLORIDE 107 mmol/L 98-110 CARBON DIOXIDE 27 mmol/L 20-32 CALCIUM 9.2 mg/dL 8.6-10.2 PROTEIN, TOTAL 6.9 g/dL 6.1-8.1 ALBUMIN 4.0 g/dL 3.6-5.1 GLOBULIN 2.9 g/dL (calc) 1.9-3.7 ALBUMIN/GLOBULIN RATIO 1.4 (calc) 1.0-2. 5 BILIRUBIN, TOTAL 0.8 mg/dL 0.2-1.2 ALKALINE PHOSPHATASE 47 U/L 33-115 AST 15 U/L 10-30 ALT 14 U/L 6-29 Encounters ACCT No. Visit Date/Time Discharge Status Pt. Type Provider Facility Loc./Unit Complaint [id number] 03/08/2016 08:35:00 Document Registration [id number] 02/09/2016 11:52:00 016 23:59:59 CLS Outpatient MARY ARAGON MD [facility] [address] CARD ABD PAIN [id number] 01/30/2016 08:33:00 016 23:59:59 CLS Outpatient MARY ARAGON MD [facility] [address] RAD ABD PAIN [id number] 09/10/2019 16:31:[address] Emergency MARCY AVENDANO MD [facility] [address] ER LETHARGIC/N/V/D [id number] 08/30/2019 09:25:00 08/30/2019 23:59: 59 CLS Outpatient KATLYN SANTILLAN [facility] [id number] 10/28/2018 08:55:00 Document Registration [id number] 05/18/2018 09:30:00 Document Registration [id number] 04/01/2017 11:20:00 Document Registration [id number] 03/16/2016 13:05:00 Document Registration [id number] 05/18/2014 14:41:00 05/18/2014 23:59: 59 CLS Outpatient KEL CORTES APRN [id number] 01/12/2014 08:59:00 01/12/2014 23:59: 59 CLS Outpatient CHRISTINA HASSAN APRN [id number] 05/27/2013 09:07:00 05/27/2013 23:59: 59 CLS Outpatient ISA LLOYD DO [id number] 09/24/2012 10:15:00 09/24/2012 23:59: 59 [place] [id number] 02/05/2012 11:25:00 02/05/2012 23:59:5 9 CLS Outpatient [id number] 09/09/2012 10:22:00 Document Registration
--- OUTSIDE RECORDS SUMMARY | 2019-09-10 16:39 | XMS REPORT ---
Author Author Karina SWANSON Organization [facility] Address [address] [place] [address] Care Team Providers Care Peg Driver Name Role Phone BYRON SWANSONICE Unavailable PROBLEMS Type Condition ICD9-CM Code [id number] Code Onset Dates Condition S tatus SNOMED Code Problem Anxiety F41.9 Active 91775810 Problem Seasonal allergic rhinitis due to other allergic trigger J30.89 Active 595595576 Problem Physical exam Z00.00 Active 445408 008 Problem Well woman exam (no gynecological exam) Z00.00 Active 659206735 ALLERGIES Substance Reaction Event Type Date Status Bactrim hives Drug Allergy Feb, Active SOCIAL HISTORY No smoking Hx information available PLAN OF CARE Activity Details Follow Up prn Reason: VITAL SIGNS Height 61 in 2016-03-05 Weight 111.4 lbs 2016-03-05 Temperature 97.9 degrees Fahrenheit 2016-03-05 Heart Rate 76 bpm 2016-03-05 Respiratory Rate 20 2016-03-05 BMI 21.05 kg/m2 2016-03-05 Blood pressure systolic 116 mmHg 2016-03-05 Blood pressure diastolic 78 mmHg 2016-03-05 MEDICATIONS Medication Instructions Dosage Frequency Start Date End Date Duration S tatus PredniSONE 20 MG Orally Once a day 2 tablet 24h Feb, Feb, 5 days Active [place]-28 0.15-30 MG-MCG Orally Once a day 1 tablet 24h 28 Active Zyrtec Allergy 10 MG Orally Once a day 1 tablet 24h Feb, 6 22 Mar, 2016 30 day(s) Active Fluticasone Propionate 50 MCG/ACT Nasally Once a day 1 spray in each nostril 24h Feb, 30 day(s) Active RESULTS No Results PROCEDURES Procedure Date Ordered Related Diagnosis Body Site Office Visit, Est Pt., Level 3 Mar 05, 2016 IMMUNIZATIONS No Known Immunizations
[2019-09-10] MEDS ORDERED: LACTATED RINGERS 1,000 ML IV ONE (16:49)
[2019-09-10] MEDS ORDERED: NS IV 500 ML 500 ML IV ONE (16:54)
--- NOTE | 2019-09-10 16:54 | ED GI ---
General Chief Complaint: Abdominal/GI Problems Stated Complaint: LETHARGIC/N/V/D Source of Information: Patient Exam Limitations: No Limitations History of Present Illness Date Seen by Provider: Sep 10, 2019 Time Seen by Provider: 16:34 Initial Comments Patient presents to the ER by private conveyance from work with chief complaint of malaise fatigue and feeling tired after having 2 weeks of off-again on-again diarrhea. Last week she went to walk-in clinic at [facility] and they gave her Imodium. She has a history of irritable bowel syndrome with chronic constipation not diarrhea. She was given dicyclomine last week as well. She said this Her diarrhea under control until the last couple days it's come back. She's had some nausea with retching but no vomiting. No abdominal surgeries or scopes. Her dad has a history of diverticulosis. She's not had any fevers or chills. She has poor appetite. Her last menstrual cycle completed about one week ago. Allergies and Home Medications Allergies Coded Allergies: sulfamethoxazole (Verified Allergy, Unknown, 09/10/19) trimethoprim (Verified Allergy, Unknown, 09/10/19) Patient Home Medication List Home Medication List Reviewed: Yes Review of Systems Review of Systems Constitutional: No chills, No diaphoresis EENTM: No Blurred Vision, No Double Vision Respiratory: Denies Cough, Denies Shortness of Air Cardiovascular: Denies Chest Pain, Denies Lightheadedness Gastrointestinal: Abdominal Pain; Denies Constipated; Diarrhea, Nausea; Denies Vomiting Genitourinary: Denies Burning, Denies Discharge Musculoskeletal: No back pain, No joint pain Skin: No pruritus, No rash Psychiatric/Neurological: Denies Headache, Denies Numbness All Other Systems Reviewed Negative Unless Noted: Yes Past Mjuukki-Uhwowl-Cbblwv Hx Patient Social History Alcohol Use: Denies Use Recreational Drug Use: No Smoking Status: Never a Smoker Recent Foreign Travel: No Contact w/Someone Who Travel: No Physical Exam Vital Signs Vital Signs - First Documented 09/10/19 16:39 Temp 37.9 Pulse 102 Resp 18 B/P (MAP) 126/84 (98) Pulse Ox 100 O2 Delivery Room Air Capillary Refill : Height/Weight/BMI Height: '" Weight: lbs. oz. kg; BMI Method: General Appearance: WD/WN, mild distress HEENT: PERRL/EOMI, pharynx normal Neck: non-tender, full range of motion, supple, normal inspection Respiratory: chest non-tender, lungs clear, normal breath sounds, no respiratory distress, no accessory muscle use Cardiovascular: normal peripheral pulses, regular rate, rhythm (90s) Peripheral Pulses: 2+ Radial Pulses (R), 2+ Radial Pulses (L) Gastrointestinal: normal bowel sounds, soft, no organomegaly; No rebound; tenderness (left upper quadrant and left lower quadrant. Negative for Guerrero sign or McBurney point tenderness. 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, no motor/sensory deficits, alert, normal mood/affect, oriented x 3 Skin: normal color, warm/dry Focused Exam Sepsis Stage: Sepsis Possible Source: GI Tract/Intra-Abdominal Lactate Level 09/10/19 17:00: Lactic Acid Level 1.33 Time of Focused Exam: 18:00 Respiratory: Lungs Clear, Normal Breath Sounds, No Accessory Muscle Use, No Respiratory Distress Cardiovascular: Regular Rate, Rhythm, No Edema, Normal Peripheral Pulses Capillary Refill: Less Than 3 Seconds Peripheral Pulses: 2+ Radial Pulses (R), 2+ Radial Pulses (L) Skin: normal color, warm/dry Lactic Acid Level Laboratory Tests Test 09/10/19 17:00 Lactic Acid Level 1.33 MMOL/L (0.50-2.00) Within 3hrs of presentation: Admin fluids, Admin ABX, Blood cultures prior to ABX's, Focus exam, Lactate level Progress/Results/Core Measures Results/Orders Lab Results Laboratory Tests Test 09/10/19 16:40 09/10/19 16:50 09/10/19 17:00 Range/Units White Blood Count 17.6 H 4.3-11.0 10^3/uL Red Blood Count 4.77 4.35-5.85 10^6/uL Hemoglobin 14.4 11.5-16.0 G/DL Hematocrit 42 35-52 % Mean Corpuscular Volume 88 80-99 FL Mean Corpuscular Hemoglobin 30 25-34 PG Mean Corpuscular Hemoglobin Concent 34 32-36 G/DL Red Cell Distribution Width 12.9 10.0-14.5 % Platelet Count 333 130-400 10^3/uL Mean Platelet Volume 9.1 7.4-10.4 FL Neutrophils (%) (Auto) 83 H 42-75 % Lymphocytes (%) (Auto) 8 L 12-44 % Monocytes (%) (Auto) 8 0-12 % Eosinophils (%) (Auto) 1 0-10 % Basophils (%) (Auto) 0 0-10 % Neutrophils # (Auto) 14.6 H 1.8-7.8 X 10^3 Lymphocytes # (Auto) 1.4 1.0-4.0 X 10^3 Monocytes # (Auto) 1.4 H 0.0-1.0 X 10^3 Eosinophils # (Auto) 0.1 0.0-0.3 10^3/uL Basophils # (Auto) 0.1 0.0-0.1 10^3/uL Neutrophils % (Manual) 84 % Lymphocytes % (Manual) 7 % Monocytes % (Manual) 6 % Eosinophils % (Manual) 1 % Band Neutrophils 2 % Blood Morphology Comment NORMAL Prothrombin Time 14.5 12.2-14.7 SEC INR Comment 1.1 0.8-1.4 Activated Partial Thromboplast Time 29 24-35 SEC Sodium Level 133 L 135-145 MMOL/L Potassium Level 3.6 3.6-5.0 MMOL/L Chloride Level 100 98-107 MMOL/L Carbon Dioxide Level 23 21-32 MMOL/L Anion Gap 10 5-14 MMOL/L Blood Urea Nitrogen 7 7-18 MG/DL Creatinine 0.85 0.60-1.30 MG/DL Estimat Glomerular Filtration Rate > 60 BUN/Creatinine Ratio 8 Glucose Level 128 H 70-105 MG/DL Calcium Level 8.7 8.5-10.1 MG/DL Corrected Calcium 9.0 8.5-10.1 MG/DL Magnesium Level 1.7 1.6-2.4 MG/DL Total Bilirubin 0.9 0.1-1.0 MG/DL Aspartate Amino Transf (AST/SGOT) 18 5-34 U/L Alanine Aminotransferase (ALT/SGPT) 17 0-55 U/L Alkaline Phosphatase 59 40-136 U/L Total Protein 6.7 6.4-8.2 GM/DL Albumin 3.6 3.2-4.5 GM/DL Lipase 6 L 8-78 U/L Urine Color YELLOW Urine Clarity CLEAR Urine pH 6.0 5-9 Urine Specific [place] <=1.005 1.016-1.022 Urine Protein NEGATIVE NEGATIVE Urine Glucose (UA) NEGATIVE NEGATIVE Urine Ketones NEGATIVE NEGATIVE Urine Nitrite NEGATIVE NEGATIVE Urine Bilirubin NEGATIVE NEGATIVE Urine Urobilinogen 0.2 < = 1.0 MG/DL Urine Leukocyte Esterase NEGATIVE NEGATIVE Urine RBC (Auto) 1+ H NEGATIVE Urine RBC 0-2 /HPF Urine WBC NONE /HPF Urine Crystals PRESENT H /LPF Urine Amorphous Sediment RARE SUSANA URATES H /LPF Urine Bacteria TRACE /HPF Urine Casts NONE /LPF Urine Mucus NEGATIVE /LPF Urine Culture Indicated NO Urine Opiates Screen NEGATIVE NEGATIVE Urine Oxycodone Screen NEGATIVE NEGATIVE Urine Methadone Screen NEGATIVE NEGATIVE Urine Propoxyphene Screen NEGATIVE NEGATIVE Urine Barbiturates Screen NEGATIVE NEGATIVE Ur Tricyclic Antidepressants Screen NEGATIVE NEGATIVE Urine Phencyclidine Screen NEGATIVE NEGATIVE Urine Amphetamines Screen NEGATIVE NEGATIVE Urine Methamphetamines Screen NEGATIVE NEGATIVE Urine Benzodiazepines Screen NEGATIVE NEGATIVE Urine Cocaine Screen NEGATIVE NEGATIVE Urine Cannabinoids Screen NEGATIVE NEGATIVE Lactic Acid Level 1.33 0.50-2.00 MMOL/L My Orders Orders - MARCY AVENDANO Ua Culture If Indicated (09/10/19 16:34) Drug Screen Stat (Urine) (09/10/19 16:34) Urine Bedside (09/10/19 16:34) Cbc With Automated Diff (09/10/19 16:47) Comprehensive Metabolic Panel (09/10/19 16:47) Lipase (09/10/19 16:47) C Difficile Ag + Toxin A/B. (09/10/19 16:47) Stool Culture (09/10/19 16:47) Fecal Wbc (09/10/19 16:47) Ed Iv/Invasive Line Start (09/10/19 16:49) Lactated Ringers (Lr 1000 Ml Iv Solution (09/10/19 16:49) Magnesium (09/10/19 16:49) Pantoprazole Injection (Protonix Injecti (09/10/19 17:00) Blood Culture (09/10/19 16:54) Protime With Inr (09/10/19 16:54) Partial Thromboplastin Time (09/10/19 16:54) Chest 1 View, Ap/Pa Only (09/10/19 16:54) Ed Iv/Invasive Line Start (09/10/19 16:54) Ed Iv/Invasive Line Start (09/10/19 16:54) Vital Signs Adult Sepsis Patie Q15M (09/10/19 16:54) Remove Rings In Anticipation O (09/10/19 16:54) Lactic Acid Analyzer (09/10/19 16:54) Ed Iv/Invasive Line Start (09/10/19 16:54) Ns Iv 500 Ml (Sodium Chloride 0.9%) (09/10/19 16:54) Manual Differential (09/10/19 16:40) Ketorolac Injection (Toradol Injection) (09/10/19 17:45) Ct Abdomen/Pelvis W (09/10/19 17:32) Iohexol Injection (Omnipaque 350 Mg/Ml 1 (09/10/19 17:45) Received Contrast (Hold Metformin- Contr (09/10/19 17:45) Ns (Ivpb) (Sodium Chloride 0.9% Ivpb Bag (09/10/19 17:45) Medications Given in ED Vital Signs/I&O 09/10/19 16:39 Temp 37.9 Pulse 102 Resp 18 B/P (MAP) 126/84 (98) Pulse Ox 100 O2 Delivery Room Air 09/11/19 00:00 Intake Total 1500 ml Balance 1500 ml Progress Progress Note #1: Time: 17:06 Progress Note Patient has a temperature of 100.2 with subjective fevers and suspected GI infection source as well as heart rate in the 90s which makes her positive for sepsis. We'll hold off on antibiotics as she may have viral versus infectious bacterial colitis. Trying get a stool culture and sample. Progress Note #2: Time: 18:52 Progress Note After Toradol the patient's pain went from a 6 down to a 2 and she is much more comfortable. She's not having any nausea presently. She is no longer febrile. We did offer her a stay and will put her on ciprofloxacin and Flagyl. Diagnostic Imaging Diagonstic Imaging: Xray Plain Films/CT/US/NM/MRI: chest (1v) Comments NAME: KATLYN MILLS MED REC#: [id number] PT STATUS: REG ER : 1985 PHYSICIAN: MARCY AVENDANO MD ADMIT DATE: 09/10/19/ER Signed Date of Exam:09/10/19 CHEST 1 VIEW, AP/PA ONLY EXAMINATION: Chest radiograph, portable AP view. DATE: 09/10/2019 5:19 PM. INDICATION: 34-year-old female, fatigue and fever. COMPARISON: None. FINDINGS: Heart size and mediastinal contours are unremarkable. There is no identified pneumothorax. There is no large pleural effusion. There is no identified focal airspace consolidation. IMPRESSION: No identified acute cardiopulmonary abnormality. Dictated by: Dictated on workstation # [id number] Dict: 09/10/19 1721 Trans: 09/10/191835 PJE [id number] Interpreted by: KATHARINA DE LA TORRE MD Electronically signed by: KATHARINA DE LA TORRE MD 09/10/191835 Reviewed: Reviewed by Ri Diagonstic Imaging: CT Plain Films/CT/US/NM/MRI: abdomen, pelvis Comments [facility] [place] NAME: KATLYN MILLS [facility] REC#: [id number] PT STATUS: REG ER : 1985 PHYSICIAN: MARCY AVENDANO MD ADMIT DATE: 09/10/19/ER Draft Date of Exam:09/10/19 CT ABDOMEN/PELVIS W PROCEDURE: CT abdomen and pelvis with contrast. TECHNIQUE: Multiple contiguous axial images were obtained through the abdomen and pelvis after administration of intravenous contrast. Auto Exposure Controls were utilized during the CT exam to meet ALARA standards for radiation dose reduction. DATE: September 10, 2019. COMPARISON: Nuclear medicine HIDA scan February 09, 2016. INDICATION: 34-year-old female, lower abdominal pain with nausea, vomiting, diarrhea, fever, fatigue. FINDINGS: The visualized portions of the lungs are clear. The heart is not enlarged. There is no pericardial effusion. There are bilateral breast implants. The liver is normal in size and contour. There is no identified liver lesion. The main, right and left portal veins are patent. The gallbladder is unremarkable. There is no intrahepatic or extrahepatic bile duct dilation. The main pancreatic duct is not abnormally dilated. The pancreatic parenchyma is unremarkable. The spleen is normal in size. The adrenal glands are unremarkable. Unremarkable appearance of the renal parenchyma. There is no hydronephrosis. Urinary bladder is unremarkable. There is abnormal mucosal enhancement involving the rectum, sigmoid colon and left colon with abnormal wall thickening of the colon at these locations. There is a small amount of free pelvic fluid. There is no identified focal drainable fluid collection. There is no free intraperitoneal air. There is no pneumatosis or portal venous gas. There is no identified abnormally enlarged lymph node in the abdomen or pelvis which meets CT size criteria for adenopathy. There is no identified acute bony abnormality. IMPRESSION: CT abdomen and pelvis: 1. Wall thickening and mucosal enhancement of the colon contiguously involving the rectum, sigmoid colon and left colon which most likely relates to an infectious or inflammatory colitis. 2. Small volume ascites without focal drainable fluid collection. Dictated on workstation # [id number] Dict: 09/10/19 1807 Trans: 09/10/19 1844 [facility] [id number] Interpreted by: KATHARINA DE LA TORRE MD Electronically signed by: Reviewed: Reviewed by Me Departure Communication (Admissions) Time/Spoke to Admitting Phy: 19:05 Discussed the case with Dr. Santana and he agrees to observe the patient overnight with rehydration, IV antibiotics. Impression Primary Impression: Colitis presumed infectious Additional Impression: Sepsis Qualified Codes: A41.9 - Sepsis, unspecified organism Disposition: ADMITTED INPATIENT Condition: Stable Admissions Decision to Admit Reason: Admit from ER (General) Decision to Admit/Date: Sep 10, 2019 Time/Decision to Admit Time: 19:00 Departure-Patient Inst. Referrals: [facility] (PCP/Family) Primary Care Physician MARCY AVENDANO Sep 10, 2019 16:54
[2019-09-10 16:56] LABS: BASOPHILS # (AUTO) 0.1 10^3/uL (0.0-0.1); BASOPHILS % (AUTO) 0 % (0-10); EOSINOPHILS # (AUTO) 0.1 10^3/uL (0.0-0.3); EOSINOPHILS % (AUTO) 1 % (0-10); HEMATOCRIT 42 % (35-52); HEMOGLOBIN 14.4 G/DL (11.5-16.0); LYMPHOCYTES # (AUTO) 1.4 X 10^3 (1.0-4.0); LYMPHOCYTES % (AUTO) 8 % (12-44); MEAN CORPUSCULAR HEMOGLOBIN 30 PG (25-34); MEAN CORPUSCULAR HGB CONC 34 G/DL (32-36); MEAN CORPUSCULAR VOLUME 88 FL (80-99); MEAN PLATELET VOLUME 9.1 FL (7.4-10.4); MONOCYTES # (AUTO) 1.4 X 10^3 (0.0-1.0); MONOCYTES % (AUTO) 8 % (0-12); NEUTROPHILS # (AUTO) 14.6 X 10^3 (1.8-7.8); NEUTROPHILS % (AUTO) 83 % (42-75); PLATELET COUNT 333 10^3/uL (130-400); RED CELL DISTRIBUTION WIDTH 12.9 % (10.0-14.5); WHITE BLOOD COUNT 17.6 10^3/uL (4.3-11.0)
[2019-09-10 17:00] LABS: ALBUMIN 3.6 GM/DL (3.2-4.5)
[2019-09-10] MEDS ORDERED: PANTOPRAZOLE 40 MG (PROTONIX) VIAL IV ONE (17:00)
[2019-09-10 17:01] LABS: CHLORIDE 100 MMOL/L (98-107); POTASSIUM 3.6 MMOL/L (3.6-5.0); SODIUM 133 MMOL/L (135-145)
[2019-09-10 17:02] LABS: CALCIUM 8.7 MG/DL (8.5-10.1)
[2019-09-10 17:03] LABS: GLUCOSE 128 MG/DL (70-105); TOTAL PROTEIN 6.7 GM/DL (6.4-8.2)
[2019-09-10 17:03] LABS: BILIRUBIN,URINE NEGATIVE (NEGATIVE); CLARITY,URINE CLEAR; COLOR,URINE YELLOW; GLUCOSE, URINE (UA) NEGATIVE (NEGATIVE); KETONES,URINE NEGATIVE (NEGATIVE); LEUKOCYTE ESTERASE ,URINE NEGATIVE (NEGATIVE); NITRITE,URINE NEGATIVE (NEGATIVE); PROTEIN,URINE NEGATIVE (NEGATIVE)
[2019-09-10 17:04] LABS: CARBON DIOXIDE 23 MMOL/L (21-32)
[2019-09-10 17:05] LABS: BILIRUBIN,TOTAL 0.9 MG/DL (0.1-1.0)
[2019-09-10 17:06] LABS: ALKALINE PHOSPHATASE 59 U/L (40-136)
[2019-09-10 17:07] LABS: CREATININE SERUM 0.85 MG/DL (0.60-1.30); GFR ESTIMATED > 60
[2019-09-10 17:08] LABS: BUN/CREATININE RATIO 8
[2019-09-10 17:09] LABS: MAGNESIUM 1.7 MG/DL (1.6-2.4)
[2019-09-10 17:10] LABS: ALANINE AMINOTRANSFERASE 17 U/L (0-55); LIPASE 6 U/L (8-78)
[2019-09-10 17:16] LABS: BAND NEUTROPHILS 2 %; EOSINOPHILS % (MANUAL) 1 %; LYMPHOCYTES % (MANUAL) 7 %; MONOCYTES % (MANUAL) 6 %; NEUTROPHILS % (MANUAL) 84 %; RBC MORPH NORMAL
[2019-09-10 17:28] LABS: AMPHETAMINE SCREEN, URINE NEGATIVE (NEGATIVE); BARBITURATE SCREEN URINE NEGATIVE (NEGATIVE); BENZODIAZEPINES SCREEN URINE NEGATIVE (NEGATIVE); CANNABINOID SCREEN, URINE NEGATIVE (NEGATIVE); COCAINE SCREEN URINE NEGATIVE (NEGATIVE); METHADONE STAT NEGATIVE (NEGATIVE); METHAMPHETAMINE SCREEN URINE S NEGATIVE (NEGATIVE); OPIATE SCREEN URINE NEGATIVE (NEGATIVE); OXYCODONE STAT NEGATIVE (NEGATIVE); PROPOXYPHENE STAT NEGATIVE (NEGATIVE); TRICYCLIC ANTIDEPRESSANTS SCRE NEGATIVE (NEGATIVE)
--- NOTE | 2019-09-10 17:29 | Diagnostic Imaging Report ---
EXAMINATION: Chest radiograph, portable AP view. DATE: 09/10/2019 5:19 PM. INDICATION: 34-year-old female, fatigue and fever. COMPARISON: None. FINDINGS: Heart size and mediastinal contours are unremarkable. There is no identified pneumothorax. There is no large pleural effusion. There is no identified focal airspace consolidation. IMPRESSION: No identified acute cardiopulmonary abnormality. Dictated by: Dictated on workstation # [id number]
[2019-09-10 17:35] LABS: INR 1.1 (0.8-1.4); PROTHROMBIN TIME PATIENT 14.5 SEC (12.2-14.7)
[2019-09-10] MEDS ORDERED: IOHEXOL 350 MG/ML 100 ML (OMNIPAQUE 350) VIAL IV ONE (17:45)
[2019-09-10] MEDS ORDERED: KETOROLAC 30 MG/ML VIAL IVP ONE (17:45)
[2019-09-10] MEDS ORDERED: NS 100 ML (IVPB) BAG IV ONE (17:45)
[2019-09-10] MEDS ORDERED: HOLD METFORMIN - RECEIVED CONTRAST 20 ML VIAL IV SCH (17:45)
[2019-09-10 17:53] LABS: BACTERIA,URINE TRACE /HPF; RBC,URINE 0-2 /HPF
[2019-09-10 17:54] LABS: AMORPHOUS SEDIMENT,UR RARE AMOR URATES /LPF
--- NOTE | 2019-09-10 18:45 | Diagnostic Imaging Report ---
PROCEDURE: CT abdomen and pelvis with contrast. TECHNIQUE: Multiple contiguous axial images were obtained through the abdomen and pelvis after administration of intravenous contrast. Auto Exposure Controls were utilized during the CT exam to meet ALARA standards for radiation dose reduction. DATE: September 10, 2019. COMPARISON: Nuclear medicine HIDA scan February 09, 2016. INDICATION: 34-year-old female, lower abdominal pain with nausea, vomiting, diarrhea, fever, fatigue. FINDINGS: The visualized portions of the lungs are clear. The heart is not enlarged. There is no pericardial effusion. There are bilateral breast implants. The liver is normal in size and contour. There is no identified liver lesion. The main, right and left portal veins are patent. The gallbladder is unremarkable. There is no intrahepatic or extrahepatic bile duct dilation. The main pancreatic duct is not abnormally dilated. The pancreatic parenchyma is unremarkable. The spleen is normal in size. The adrenal glands are unremarkable. Unremarkable appearance of the renal parenchyma. There is no hydronephrosis. Urinary bladder is unremarkable. There is abnormal mucosal enhancement involving the rectum, sigmoid colon and left colon with abnormal wall thickening of the colon at these locations. There is a small amount of free pelvic fluid. There is no identified focal drainable fluid collection. There is no free intraperitoneal air. There is no pneumatosis or portal venous gas. There is no identified abnormally enlarged lymph node in the abdomen or pelvis which meets CT size criteria for adenopathy. There is no identified acute bony abnormality. IMPRESSION: CT abdomen and pelvis: 1. Wall thickening and mucosal enhancement of the colon contiguously involving the rectum, sigmoid colon and left colon which most likely relates to an infectious or inflammatory colitis. 2. Small volume ascites without focal drainable fluid collection. Dictated by: Dictated on workstation # [id number]
[2019-09-10] MEDS ORDERED: cefTRIAXone FOR IV USE 1,000 MG in WATER (STERILE) FOR INJECTION 10 ML IV ONE (19:15)
[2019-09-10] MEDS ORDERED: metroNIDAZOLE 500MG/100ML IVPB 100 ML IV ONE (19:15)
[2019-09-10] MEDS ORDERED: cefTRIAXone 1,000 MG IV (ROCEPHIN) VIAL ONE (19:32)
[2019-09-10] MEDS ORDERED: WATER (STERILE) FOR INJECTION 10 ML ONE (19:32)
[2019-09-10 20:08] VITALS: BP 100/63
[2019-09-10] MEDS: LACTATED RINGERS 1,000 ML IV SCH (23:44)
[2019-09-10] MEDS: ACETAMINOPHEN 500 MG TAB (TYLENOL) PO PRN (23:45)
[2019-09-11] VITALS: BP 107/73
[2019-09-11 04:00] VITALS: BP 99/64
[2019-09-11] MEDS: ONDANSETRON 4 MG/2 ML (SDV) Z0FRAN IV PRN (05:09)
[2019-09-11] MEDS: KETOROLAC 15 MG/ML VIAL IV PRN ×2 (05:10→06:00)
[2019-09-11 05:47] LABS: BASOPHILS % (AUTO) 0 % (0-10); EOSINOPHILS # (AUTO) 0.2 10^3/uL (0.0-0.3); EOSINOPHILS % (AUTO) 1 % (0-10); HEMATOCRIT 36 % (35-52); HEMOGLOBIN 12.3 G/DL (11.5-16.0); LYMPHOCYTES # (AUTO) 0.8 X 10^3 (1.0-4.0); LYMPHOCYTES % (AUTO) 6 % (12-44); MEAN CORPUSCULAR HEMOGLOBIN 30 PG (25-34); MEAN CORPUSCULAR HGB CONC 34 G/DL (32-36); MEAN CORPUSCULAR VOLUME 88 FL (80-99); MEAN PLATELET VOLUME 8.8 FL (7.4-10.4); MONOCYTES # (AUTO) 1.5 X 10^3 (0.0-1.0); MONOCYTES % (AUTO) 13 % (0-12); NEUTROPHILS # (AUTO) 9.4 X 10^3 (1.8-7.8); NEUTROPHILS % (AUTO) 79 % (42-75); PLATELET COUNT 243 10^3/uL (130-400); RED CELL DISTRIBUTION WIDTH 12.8 % (10.0-14.5); WHITE BLOOD COUNT 11.9 10^3/uL (4.3-11.0)
[2019-09-11 06:01] LABS: ALBUMIN 2.7 GM/DL (3.2-4.5); CHLORIDE 106 MMOL/L (98-107); POTASSIUM 3.4 MMOL/L (3.6-5.0); SODIUM 135 MMOL/L (135-145)
[2019-09-11 06:03] LABS: CALCIUM 7.7 MG/DL (8.5-10.1)
[2019-09-11 06:04] LABS: GLUCOSE 121 MG/DL (70-105); TOTAL PROTEIN 5.1 GM/DL (6.4-8.2)
[2019-09-11 06:05] LABS: CARBON DIOXIDE 20 MMOL/L (21-32)
[2019-09-11 06:06] LABS: BILIRUBIN,TOTAL 0.7 MG/DL (0.1-1.0)
[2019-09-11 06:07] LABS: ALKALINE PHOSPHATASE 45 U/L (40-136); CREATININE SERUM 0.68 MG/DL (0.60-1.30); GFR ESTIMATED > 60
[2019-09-11 06:08] LABS: BUN/CREATININE RATIO 7
[2019-09-11 06:10] LABS: ALANINE AMINOTRANSFERASE 13 U/L (0-55)
[2019-09-11] MEDS: LACTATED RINGERS 1,000 ML IV SCH ×2 (07:05→17:13)
[2019-09-11 08:00] VITALS: BP 98/62
[2019-09-11] MEDS: ACETAMINOPHEN 500 MG TAB (TYLENOL) PO PRN (08:00)
[2019-09-11 12:00] VITALS: BP 103/63
--- NOTE | 2019-09-11 12:07 | History & Physical-Hospitalist ---
History of Present Illness HPI/Chief Complaint Patient presents to the ER by private conveyance from work with chief complaint of malaise fatigue and feeling tired after having 2 weeks of off-again on-again diarrhea. Last week she went to walk-in clinic at [facility] and they gave her Imodium. She has a history of irritable bowel syndrome with chronic constip ation not diarrhea. She was given dicyclomine last week as well. She said this Her diarrhea under control until the last couple days it's come back. She's had some nausea with retching but no vomiting. No abdominal surgeries or scopes. Her dad has a history of diverticulosis. She's not had any fevers or chills. She has poor appetite. Her last menstrual cycle completed about one week ago. Diarrhea was initially abrupt in onset and followed a meal of sushi by 6-8 hours. She denied blood night sweats chills or fever but did have rather overwhelming fatigue and predominant left lower quadrant abdominal pain as well as suprapubic discomfort. She continues to have abdominal pain but has not had diarrhea since last night. No one else at home had sushi and she's not aware of anyone else being ill. She had no known COVID exposure. Date Seen 09/11/19 Time Seen by a Provider: 10:00 Attending Physician Jen Méndez MD [facility] [place],[facility] Referring Physician Date of Admission Sep 10, 2019 at 19:10 Home Medications & Allergies Home Medications Reviewed patient Home Medication Reconciliation performed by pharmacy medication reconciliations survey technician and/or nursing. Patients Allergies have been reviewed. Allergies Allergies Coded Allergies sulfamethoxazole (Verified Allergy, Unknown, 09/10/19) trimethoprim (Verified Allergy, Unknown, 09/10/19) Past Miuudkr-[id number]-[id number] Hx Past Med/Social Hx: Reviewed and Corrections made Patient Social History Alcohol Use: Denies Use Number of Drinks Today: 0 Recreational Drug Use: No Smoking Status: Never a Smoker 2nd Hand Smoke Exposure: No Recent Foreign Travel: No Contact w/other who traveled: No Recent Infectious Disease Expo: No Past Medical History : No Gastrointestinal: Irritable Bowel History of Blood Disorders: No Review of Systems Constitutional: see HPI Physical Exam Physical Exam Vital Signs Vital Signs - First Documented 09/10/19 16:39 Temp 37.9 Pulse 102 Resp 18 B/P (MAP) 126/84 (98) Pulse Ox 100 O2 Delivery Room Air Capillary Refill : Less Than 3 Seconds Height, Weight, BMI Height: '" Weight: lbs. oz. kg; 21.25 BMI Method: General Appearance: Mild Distress, Thin HEENT: Normal ENT Inspection Neck: Full Range of Motion, Normal Inspection, Non Tender Respiratory: Chest Non Tender, Lungs Clear, Normal Breath Sounds, No Accessory Muscle Use, No Respiratory Distress Cardiovascular: Regular Rate, Rhythm, No Edema, No Gallop, No JVD, No Murmur, Normal Peripheral Pulses Gastrointestinal: No Organomegaly, No Pulsatile Mass, Other (Mild abdominal distention with suprapubic and left lower quadrant discomfort to palpation. No rebound or guarding noted bowel sounds present but somewhat hypoactive) Extremity: Normal Capillary Refill, Normal Inspection, Normal Range of Motion, Non Tender, No Calf Tenderness, No Pedal Edema Neurologic/Psychiatric: Alert, Oriented x3 Results Results/Procedures Labs Laboratory Tests 09/10/19 16:40 09/11/19 05:35 Patient resulted labs reviewed. Assessment/Plan Admission Diagnosis 1. Acute infectious colitis continue Cipro and Flagyl. No recent antibiotic exposure. No other reported medical problems. We'll continue control pills. No history of DVT low risk for DVT considering colitis risk of anticoagulant therapy outweighs benefits. 2. Sepsis not severe appears to be moderating blood pressure up white count down from 17,000 to11,000 range. Admission Status: Inpatient Order (span 2 midnights) Reason for Inpatient Admission: See admission diagnosis Clinical Quality Measures DVT/VTE Risk/Contraindication: Risk Factor Score Per Nursin RFS Level Per Nursing on Admit: 4+=Very High JEN MÉNDEZ MD Sep 11, 2019 12:07
[2019-09-11] MEDS: KETOROLAC 30 MG/ML VIAL IV PRN (12:20)
[2019-09-11] MEDS: ACETAMINOPHEN 325 MG TABLET PO SCH ×3 (12:36→20:26)
[2019-09-11] MEDS ORDERED: KETOROLAC 15 MG/ML VIAL IV PRN (13:15)
[2019-09-11] MEDS ORDERED: ACETAMINOPHEN 500 MG TAB (TYLENOL) PO SCH (16:00)
[2019-09-11] MEDS ORDERED: ACETAMINOPHEN 325 MG TABLET PO SCH (16:00)
[2019-09-11 16:06] VITALS: BP 96/58
[2019-09-11 19:54] VITALS: BP 96/59
[2019-09-12] VITALS (7 sets, daily range): BP systolic 96–103; BP diastolic 59–66
[2019-09-12] MEDS: LACTATED RINGERS 1,000 ML IV SCH ×2 (03:00→05:50)
[2019-09-12] MEDS: ONDANSETRON 4 MG/2 ML (SDV) Z0FRAN IV PRN ×2 (05:50→21:19)
[2019-09-12] MEDS: ACETAMINOPHEN 325 MG TABLET PO SCH ×4 (07:53→20:06)
[2019-09-12 08:34] LABS: BASOPHILS % (AUTO) 0 % (0-10); EOSINOPHILS # (AUTO) 0.4 10^3/uL (0.0-0.3); EOSINOPHILS % (AUTO) 5 % (0-10); HEMATOCRIT 34 % (35-52); HEMOGLOBIN 11.4 G/DL (11.5-16.0); LYMPHOCYTES # (AUTO) 1.3 X 10^3 (1.0-4.0); LYMPHOCYTES % (AUTO) 16 % (12-44); MEAN CORPUSCULAR HEMOGLOBIN 30 PG (25-34); MEAN CORPUSCULAR HGB CONC 34 G/DL (32-36); MEAN CORPUSCULAR VOLUME 88 FL (80-99); MEAN PLATELET VOLUME 8.6 FL (7.4-10.4); MONOCYTES # (AUTO) 1.6 X 10^3 (0.0-1.0); MONOCYTES % (AUTO) 18 % (0-12); NEUTROPHILS # (AUTO) 5.2 X 10^3 (1.8-7.8); NEUTROPHILS % (AUTO) 61 % (42-75); PLATELET COUNT 273 10^3/uL (130-400); RED CELL DISTRIBUTION WIDTH 12.9 % (10.0-14.5); WHITE BLOOD COUNT 8.5 10^3/uL (4.3-11.0)
[2019-09-12 08:53] LABS: BUN/CREATININE RATIO 4; CALCIUM 7.9 MG/DL (8.5-10.1); CARBON DIOXIDE 21 MMOL/L (21-32); CHLORIDE 105 MMOL/L (98-107); CREATININE SERUM 0.72 MG/DL (0.60-1.30); GFR ESTIMATED > 60; GLUCOSE 110 MG/DL (70-105); POTASSIUM 3.4 MMOL/L (3.6-5.0); SODIUM 136 MMOL/L (135-145)
[2019-09-12] MEDS ORDERED: ACETAMINOPHEN 325 MG TABLET PO SCH (09:00)
[2019-09-12] MEDS ORDERED: CIPROFLOXACIN IV 400MG/200ML 200 ML IV NR (14:00)
--- NOTE | 2019-09-12 14:04 | Progress Note - Hospitalist ---
Subjective HPI/CC On Admission Date Seen by Provider: Sep 12, 2019 Time Seen by Provider: 12:30 Patient presents to the ER by private conveyance from work with chief complaint of malaise fatigue and feeling tired after having 2 weeks of off-again on-again diarrhea. [facility]. She has a history of irritable bowel syndrome with chronic constipation not diarrhea. She was given dicyclomine last week as well. She said this Her diarrhea under control until the last couple days it's come back. She's had some nausea with retching but no vomiting. No abdominal surgeries or scopes. Her dad has a history of diverticulosis. She's not had any fevers or chills. She has poor appetite. Her last menstrual cycle completed about one week ago. Diarrhea was initially abrupt in onset and followed a meal of sushi by 6-8 hours. She denied blood night sweats chills or fever but did have rather overwhelming fatigue and predominant left lower quadrant abdominal pain as well as suprapubic discomfort. She continues to have abdominal pain but has not had diarrhea since last night. No one else at home had sushi and she's not aware of anyone else being ill. She had no known COVID exposure. Subjective/Events-last exam She reports that her abdomen still feels distended but she is no longer having significant abdominal pain. She still having watery nonbloody diarrhea. MAXIMUM TEMPERATURE lower 38.4 last night currently afebrile keeping liquids d own did have some nausea with dry heaves with no hematemesis last night. No nausea this morning. Focused Exam Lactate Level 09/10/19 17:00: Lactic Acid Level 1.33 Time of Focused Exam: 18:00 Objective Exam Vital Signs Vital Signs Date Time Temp Pulse Resp B/P (MAP) Pulse Ox O2 Delivery O2 Flow Rate FiO2 09/12/19 11:34 36.8 80 18 99/60 (73) 99 Room Air Capillary Refill : Less Than 3 SecondsLess Than 3 Seconds General Appearance: No Apparent Distress Respiratory: Chest Non Tender, Lungs Clear, Normal Breath Sounds, No Accessory Muscle Use, No Respiratory Distress Cardiovascular: Regular Rate, Rhythm, No Edema, No Gallop, No JVD, No Murmur, Normal Peripheral Pulses Gastrointestinal: Normal Bowel Sounds, No Organomegaly, No Pulsatile Mass, Other (Mild suprapubic and left lower quadrant discomfort to palpation without rebound or guarding mild distention abdomen soft epigastric bruit unchanged) Results/Procedures Lab Laboratory Tests 09/12/19 08:25 Patient resulted labs reviewed. Assessment/Plan Assessment and Plan Assess & Plan/Chief Complaint 1. Acute infectious colitis with probable mild sepsis latter resolved former improving white count back to normal with continued diarrhea continue Cipro. No recent antibiotic exposure. No other reported medical problems. No Clostridium difficile toxin report in the chart it appears to been done we'll check into this as well as stool culture reportedly done as well. We'll continue control pills. No history of DVT low risk for DVT considering colitis risk of anticoagulant therapy outweighs benefits. 2. Inflammatory bowel disease much less likely but I do want to see the patient in my office for follow-up for consideration for colonoscopy if she still having any symptoms. If there is exacerbation of her hospitalized symptoms let me know and I could plan colonoscopy however it will be in her best interest to hold off provided she continues to have clinical improvement. As she was given my office number and instructed to call for follow-up on her discharge. Clinical Quality Measures DVT/VTE Risk/Contraindication: Risk Factor Score Per Nursin RFS Level Per Nursing on Admit: 4+=Very High JEN MÉNDEZ MD Sep 12, 2019 14:04
[2019-09-12] MEDS: CIPROFLOXACIN IV 400MG/200ML 200 ML IV SCH (20:07)
[2019-09-12] MEDS: KETOROLAC 30 MG/ML VIAL IV PRN (21:19)
[2019-09-13] MEDS: LACTATED RINGERS 1,000 ML IV SCH ×3 (02:19→17:51)
[2019-09-13 04:30] VITALS: BP 106/67
[2019-09-13] MEDS: KETOROLAC 30 MG/ML VIAL IV PRN (04:57)
[2019-09-13 05:44] LABS: BASOPHILS # (AUTO) 0.1 10^3/uL (0.0-0.1); BASOPHILS % (AUTO) 1 % (0-10); EOSINOPHILS # (AUTO) 0.4 10^3/uL (0.0-0.3); EOSINOPHILS % (AUTO) 6 % (0-10); HEMATOCRIT 35 % (35-52); HEMOGLOBIN 11.6 G/DL (11.5-16.0); LYMPHOCYTES # (AUTO) 1.3 X 10^3 (1.0-4.0); LYMPHOCYTES % (AUTO) 20 % (12-44); MEAN CORPUSCULAR HEMOGLOBIN 29 PG (25-34); MEAN CORPUSCULAR HGB CONC 33 G/DL (32-36); MEAN CORPUSCULAR VOLUME 88 FL (80-99); MEAN PLATELET VOLUME 9.6 FL (7.4-10.4); MONOCYTES # (AUTO) 1.5 X 10^3 (0.0-1.0); MONOCYTES % (AUTO) 22 % (0-12); NEUTROPHILS # (AUTO) 3.5 X 10^3 (1.8-7.8); NEUTROPHILS % (AUTO) 51 % (42-75); PLATELET COUNT 280 10^3/uL (130-400); RED CELL DISTRIBUTION WIDTH 12.9 % (10.0-14.5); WHITE BLOOD COUNT 6.8 10^3/uL (4.3-11.0)
[2019-09-13 06:06] LABS: CHLORIDE 105 MMOL/L (98-107); POTASSIUM 3.7 MMOL/L (3.6-5.0); SODIUM 136 MMOL/L (135-145)
[2019-09-13 06:07] LABS: CALCIUM 8.3 MG/DL (8.5-10.1)
[2019-09-13 06:08] LABS: GLUCOSE 83 MG/DL (70-105)
[2019-09-13 06:09] LABS: CARBON DIOXIDE 22 MMOL/L (21-32)
[2019-09-13 06:12] LABS: CREATININE SERUM 0.68 MG/DL (0.60-1.30); GFR ESTIMATED > 60
[2019-09-13 06:13] LABS: BUN/CREATININE RATIO 4
[2019-09-13] MEDS: CIPROFLOXACIN IV 400MG/200ML 200 ML IV SCH ×2 (07:55→22:03)
[2019-09-13] MEDS: ONDANSETRON 4 MG/2 ML (SDV) Z0FRAN IV PRN (07:55)
[2019-09-13] MEDS: ACETAMINOPHEN 325 MG TABLET PO SCH ×4 (07:55→22:03)
[2019-09-13 07:57] VITALS: BP 99/61
--- NOTE | 2019-09-13 09:28 | NUR ---
Spoke to patient she states she just takes control medication.
--- NOTE | 2019-09-13 10:46 | Progress Note ---
Subjective Subjective/Events-last exam Patient laying in bed looking uncomfortable. States that she has not tried to eat anything since throwing up applesauce last night. She is able to keep water down. Febrile ON. Review of Systems General: Chills, Fatigue Pulmonary: No Dyspnea, No Cough, No Pleuritic Chest Pain Cardiovascular: No: Chest Pain, Palpitations, Edema Gastrointestinal: Nausea, Vomiting, Abdominal Pain Genitourinary: No Dysuria, No Frequency Neurological: Weakness Focused Exam Lactate Level 09/10/19 17:00: Lactic Acid Level 1.33 Time of Focused Exam: 18:00 Objective Exam Last Set of Vital Signs Vital Signs Date Time Temp Pulse Resp B/P (MAP) Pulse Ox O2 Delivery O2 Flow Rate FiO2 09/13/19 08:00 Room Air 09/13/19 07:57 37.7 81 18 99/61 (74) 98 Capillary Refill : Less Than 3 SecondsLess Than 3 Seconds I&O Intake and Output 09/13/19 00:00 Intake Total 2740 ml Output Total 30 ml Balance 2710 ml Intake Oral 1340 ml IV Total 1400 ml Output Emesis 30 ml # Voids 10 # Bowel Movements 5 General: Alert, Oriented X3, Cooperative, No Acute Distress HEENT: Other (dry MM) Lungs: Clear to Auscultation, Normal Air Movement Heart: Regular Rate, No Murmurs Abdomen: Normal Bowel Sounds, Soft, Other (mild LLQ ttp) Extremities: No Edema, No Tenderness/Swelling Neuro: Normal Speech Results/Procedures Lab Laboratory Tests 09/13/19 05:16: White Blood Count 6.8, Red Blood Count 3.94L, Hemoglobin 11.6, Hematocrit 35, Mean Corpuscular Volume 88, Mean Corpuscular Hemoglobin 29, Mean Corpuscular Hemoglobin Concent 33, Red Cell Distribution Width 12.9, Platelet Count 280, Mean Platelet Volume 9.6, Neutrophils (%) (Auto) 51, Lymphocytes (%) (Auto) 20, Monocytes (%) (Auto) 22H, Eosinophils (%) (Auto) 6, Basophils (%) (Auto) 1, Neutrophils # (Auto) 3.5, Lymphocytes # (Auto) 1.3, Monocytes # (Auto) 1.5H, Eosinophils # (Auto) 0.4H, Basophils # (Auto) 0.1, Sodium Level 136, Potassium Level 3.7, Chloride Level 105, Carbon Dioxide Level 22, Anion Gap 9, Blood Urea Nitrogen 3L, Creatinine 0.68, Estimat Glomerular Filtration Rate > 60, BUN/Creatinine Ratio 4, Glucose Level 83, Calcium Level 8.3L Microbiology 09/12/19 C. difficile GDH Antigen & Toxins - Final, Complete 09/10/19 Blood Culture - Preliminary, Resulted No growth Assessment/Plan Assessment/Plan Admission Status: Inpatient Order (span 2 midnights) Reason for Inpatient Admission: Transitioned to inpatient due to continued fevers and unable to tolerate PO (1) Colitis presumed infectious Status: Acute Assessment & Plan: 09/12: Continue IV antibiotics, leukocytosis is improving, patient continues to be febrile treated with motrin/Tylenol (2) Nausea & vomiting Status: Acute Assessment & Plan: 09/12: CLD as tolerated, Zofran/Phenergen PRN Qualifiers: Qualified Codes: R11.2 - Nausea with vomiting, unspecified Clinical Quality Measures DVT/VTE Risk/Contraindication: Risk Factor Score Per Nursin RFS Level Per Nursing on Admit: 4+=Very High GAUTAM SMYTH MD Sep 13, 2019 10:46
[2019-09-13 11:36] VITALS: BP 96/63
[2019-09-13] MEDS ORDERED: LEVO1TAB58 PO (11:53)
--- NOTE | 2019-09-13 13:45 | NUR ---
PATIENT NEEDS DOCUMENTATION OF STOOL CULTURE FOR WORK IF IT IS A FOOD BORN BACTERIA. 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 SHE ALSO NEEDS TO KNOW WHEN SHE CAN RETURN TO WORK, AND WHAT HER RESTRICTIONS ARE "WORK CAN BE "INTENSE""
--- NOTE | 2019-09-13 14:05 | NUR ---
"RD ASSESSMENT PMHx: irritable bowel PT INTERACTION: Pt was awake and pleasant during nutrition assessment. Pt states current appetite is poor. Note avg PO intake <25% x2d, per chart review. Pt states following a regular diet at home, and has no issues with chewing/swallowing food. Pt states recent issues with nausea and vomiting. Note 1 episode of emesis on 09/11, per chart review. Pt states recent issues with diarrhea since 09/06. Note last BM was 09/11, and pt not currently on bowel regimen per chart review. Pt states no recent wt changes. Note unable to determine recent wt hx, per chart review. ABNORMAL NUTRITION-RELATED LAB VALUES LOW: BUN 3; Ca 8.3 HIGH: Est. kcal needs: 9606-0357 kcal | 25-30 kcal/kg Est. Pro needs: 51-61 g Pro | 1.0-1.2 g Pro/kg PES STATEMENT: Inadequate oral intake (NI-2.1) related to loss of appetite | nausea | vomiting | diarrhea as evidenced by pt interview | avg PO intake <25% x2d INTERVENTION: Continue with current diet order of Clear Liquid diet. Add Ensure Clear (vary) to meals TID, for increased kcal intake. Provides 250 kcal and 8 g Pro per serving. Encouraged pt to eat when able. Will continue to follow and reassess as pt needs, intake, and status change. MONITOR/EVALUATE: PO Intake; Plan of Care; Hydration Status; Weight Status; Lab Values Rabia Fernandez, MS, RD, LD"
--- NOTE | 2019-09-13 14:15 | NUR ---
Pastoral care visit.
[2019-09-13 15:42] VITALS: BP 98/61
[2019-09-14] VITALS: BP 102/66
[2019-09-14 05:45] LABS: BASOPHILS # (AUTO) 0.1 10^3/uL (0.0-0.1); BASOPHILS % (AUTO) 1 % (0-10); EOSINOPHILS # (AUTO) 0.4 10^3/uL (0.0-0.3); EOSINOPHILS % (AUTO) 5 % (0-10); HEMATOCRIT 31 % (35-52); HEMOGLOBIN 10.3 G/DL (11.5-16.0); LYMPHOCYTES # (AUTO) 2.3 X 10^3 (1.0-4.0); LYMPHOCYTES % (AUTO) 32 % (12-44); MEAN CORPUSCULAR HEMOGLOBIN 29 PG (25-34); MEAN CORPUSCULAR HGB CONC 33 G/DL (32-36); MEAN CORPUSCULAR VOLUME 88 FL (80-99); MEAN PLATELET VOLUME 8.7 FL (7.4-10.4); MONOCYTES # (AUTO) 1.1 X 10^3 (0.0-1.0); MONOCYTES % (AUTO) 15 % (0-12); NEUTROPHILS # (AUTO) 3.5 X 10^3 (1.8-7.8); NEUTROPHILS % (AUTO) 48 % (42-75); PLATELET COUNT 357 10^3/uL (130-400); RED CELL DISTRIBUTION WIDTH 13.2 % (10.0-14.5); WHITE BLOOD COUNT 7.2 10^3/uL (4.3-11.0)
[2019-09-14 05:58] LABS: CHLORIDE 106 MMOL/L (98-107); POTASSIUM 3.7 MMOL/L (3.6-5.0); SODIUM 137 MMOL/L (135-145)
[2019-09-14 05:59] LABS: CALCIUM 7.9 MG/DL (8.5-10.1)
[2019-09-14 06:00] LABS: GLUCOSE 87 MG/DL (70-105)
[2019-09-14 06:01] LABS: CARBON DIOXIDE 23 MMOL/L (21-32)
[2019-09-14 06:04] LABS: CREATININE SERUM 0.63 MG/DL (0.60-1.30); GFR ESTIMATED > 60
[2019-09-14 06:05] LABS: BUN/CREATININE RATIO 3
[2019-09-14] MEDS: LACTATED RINGERS 1,000 ML IV SCH (06:37)
--- NOTE | 2019-09-14 08:07 | NUR ---
MICROBIOLOGY CALLED-PATIENT IS POSITIVE FOR C-DIFF. NOTIFIED DR SMYTH.
[2019-09-14 08:14] VITALS: BP 103/66
[2019-09-14] MEDS ORDERED: VANCOMYCIN 50 MG/ML ORAL SOLN 150 ML PO SCH ×2 (08:15→10:15)
[2019-09-14] MEDS: ACETAMINOPHEN 325 MG TABLET PO SCH (08:51)
[2019-09-14] MEDS: CIPROFLOXACIN IV 400MG/200ML 200 ML IV SCH (08:51)
[2019-09-14] MEDS ORDERED: CIPR-226 PO (10:08)
[2019-09-14] MEDS ORDERED: VANC125C5 PO (10:10)
--- NOTE | 2019-09-14 10:27 | Discharge Summary ---
Diagnosis/Chief Complaint Date of Admission Sep 10, 2019 at 19:10 Date of Discharge Discharge Date: Sep 14, 2019 Admission Diagnosis 1. Acute infectious colitis continue Cipro and Flagyl. No recent antibiotic exposure. No other reported medical problems. We'll continue control pills. No history of DVT low risk for DVT considering colitis risk of anticoagulant therapy outweighs benefits. 2. Sepsis not severe appears to be moderating blood pressure up white count down from 17,000 to11,000 range. [facility] Discharge Summary Discharge Physical Exam Allergies: Coded Allergies: sulfamethoxazole (Verified Allergy, Unknown, 09/10/19) trimethoprim (Verified Allergy, Unknown, 09/10/19) Vitals & I&Os Vital Signs Date Time Temp Pulse Resp B/P (MAP) Pulse Ox O2 Delivery O2 Flow Rate FiO2 09/14/19 08:14 37.1 73 18 103/66 (78) 99 Room Air General Appearance: No Apparent Distress, WD/WN Respiratory: Chest Non Tender, Lungs Clear, Normal Breath Sounds, No Accessory Muscle Use, No Respiratory Distress Cardiovascular: Regular Rate, Rhythm, No Edema, No Gallop, No JVD, No Murmur, Normal Peripheral Pulses Gastrointestinal: Normal Bowel Sounds, No Organomegaly, No Pulsatile Mass, Non Tender, Soft Hospital Course Was the Problem List Reviewed?: Yes Patient presents to the ER by private conveyance from work with chief complaint of malaise fatigue and feeling tired after having 2 weeks of off-again on-again diarrhea. Last week she went to walk-in clinic at [facility] and they gave her Imodium. She has a history of irritable bowel syndrome with chronic constipation not diarrhea. She was given dicyclomine last week as well. She said this Her diarrhea under control until the last couple days it's come back. She's had some nausea with retching but no vomiting. No abdominal surgeries or scopes. Her dad has a history of diverticulosis. She's not had any fevers or chills. She has poor appetite. Her last menstrual cycle completed about one week ago. Diarrhea was initially abrupt in onset and followed a meal of sushi by 6-8 hours. She denied blood night sweats chills or fever but did have rather overwhelming fatigue and predominant left lower quadrant abdominal pain as well as suprapubic discomfort. She continues to have abdominal pain but has not had diarrhea since last night. No one else at home had sushi and she's not aware of anyone else being ill. She had no known COVID exposure. CT scan of the abdomen revealed rectal sigmoid and descending colonic bowel wall thickening small amount of pelvic fluid no evidence for abscess formation no evidence for diverticular disease. Her white count was 17,000 and her blood pressure was low compatible with sepsis. She responded well to antibiotics and blood pressures remained in the 90-100 systolic range throughout the remainder of her hospital stay with resolution of tachycardia. Cipro was initiated for presumed infectious colitis. Stool studies for C. difficile did reveal GDH antigen positivity but give for a and B toxins. In an individual who is a vegan healthy with no medical problems and no antibiotic exposure C. difficile colitis is highly unlikely. She also responded to Cipro white count returned to normal within 24 hours she had resolution of fever although it took 3 days and slow improvement in abdominal pain and still having 5-6 months smaller loose stools. She initially had some nausea and a couple of episodes of vomiting but this resolved as well. At discharge her white count was normal limits 7000 range with resolution of left shift and hemoglobin was 10.6 with a normal MCV. Expectations that fatigue may persist for a while but there should not be recurrence of fever or chills. We will discharge her with another 3 days of Cipro 250 mg twice a day and she was dispensed a 10 day course of vancomycin solution 125 mg 3 times a day for C. difficile colitis prevention as she may be an asymptomatic spore carrier based on positive antigenicity only. Nothing was growing out of stool cultures otherwise at the time of discharge. Her care was discussed with Marya Conde and we will see her back in my office for follow-up on to determine return to work issues. Considering her age and lack of any other medical problems as long as there is resolution I do not plan on colonoscopy. If there is recurrence however it will be required and I will set this up. Labs (last 24 hrs) Laboratory Tests 09/14/19 05:27: White Blood Count 7.2, Red Blood Count 3.53L, Hemoglobin 10.3L, Hematocrit 31L, Mean Corpuscular Volume 88, Mean Corpuscular Hemoglobin 29, Mean Corpuscular Hemoglobin Concent 33, Red Cell Distribution Width 13.2, Platelet Count 357, Mean Platelet Volume 8.7, Neutrophils (%) (Auto) 48, Lymphocytes (%) (Auto) 32, Monocytes (%) (Auto) 15H, Eosinophils (%) (Auto) 5, Basophils (%) (Auto) 1, Neutrophils # (Auto) 3.5, Lymphocytes # (Auto) 2.3, Monocytes # (Auto) 1.1H, Eosinophils # (Auto) 0.4H, Basophils # (Auto) 0.1, Sodium Level 137, Potassium Level 3.7, Chloride Level 106, Carbon Dioxide Level 23, Anion Gap 8, Blood Urea Nitrogen 2L, Creatinine 0.63, Estimat Glomerular Filtration Rate > 60, BUN/Creatinine Ratio 3, Glucose Level 87, Calcium Level 7.9L Microbiology 09/12/19 C. difficile DNA Amplification - Final, Complete 09/10/19 Blood Culture - Preliminary, Resulted No growth Patient resulted labs reviewed. Pending Labs Laboratory Tests 09/14/19 05:27: White Blood Count 7.2, Red Blood Count 3.53, Hemoglobin 10.3, Hematocrit 31, Mean Corpuscular Volume 88, Mean Corpuscular Hemoglobin 29, Mean Corpuscular Hemoglobin Concent 33, Red Cell Distribution Width 13.2, Platelet Count 357, Me an Platelet Volume 8.7, Neutrophils (%) (Auto) 48, Lymphocytes (%) (Auto) 32, Monocytes (%) (Auto) 15, Eosinophils (%) (Auto) 5, Basophils (%) (Auto) 1, Neutrophils # (Auto) 3.5, Lymphocytes # (Auto) 2.3, Monocytes # (Auto) 1.1, Eosinophils # (Auto) 0.4, Basophils # (Auto) 0.1, Sodium Level 137, Potassium Level 3.7, Chloride Level 106, Carbon Dioxide Level 23, Anion Gap 8, Blood Urea Nitrogen 2, Creatinine 0.63, Estimat Glomerular Filtration Rate > 60, BUN/Creatinine Ratio 3, Glucose Level 87, Calcium Level 7.9 Discussion & Recommendations Discharge Planning: >30 minutes discharge planning Discharge Home Medications: Active Scripts Active Vancomycin HCl 125 Mg Capsule 125 Mg PO TID 10 Days Cipro (Ciprofloxacin HCl) 250 Mg Tablet 250 Mg PO BID 3 Days Reported Levonor-Eth Estrad 0.15-0.03 (Levonorgestrel-Ethin Estradiol) 1 Each Tablet 1 Ea PO DAILY Instructions to patient/family Please see electronic discharge instructions given to patient. Clinical Quality Measures DVT/VTE Risk/Contraindication: Risk Factor Score Per Nursin RFS Level Per Nursing on Admit: 4+=Very High Copy Copies To 1: [facility] [place] To [place]: JEN MÉNDEZ MD, MARK D MD Sep 14, 2019 10:27
[2019-09-14] MEDS ORDERED: RELABEL FOR HOME USE MC SCH (10:45)
[2019-09-14 11:14] VITALS: BP 103/66
== END 2019-09-14 11:14 | disposition home or self-care (01) | DRG 872 ==
LOC: EDUNIT# 16:29 → ER 16:31 → 4TH 19:10 → OBSVTOIN 19:10
PROVIDERS: ADMIT Internal Medicine; ATTEND Family Medicine
DX: A41.9 Sepsis, unspecified organism (principal); A09 Infectious gastroenteritis and colitis, unspecified; K58.1 Irritable bowel syndrome with constipation; Z88.2 Allergy status to sulfonamides; Z88.8 Allergy status to other drugs, medicaments and biological substances
CPT/HCPCS: 36415; 71045; 74177; 80048; 80053; 80306; 81000; 83605; 83690; 83735; 84703; 85007; 85025; 85027; 85610; 85730; 87015; 87040; 87045; 87046; 87324; 87449; 87493; 87899; 89055; 96361; 96365; 96375